=== PATIENT | female | born 1945 | race Caucasian/White ===

== ENCOUNTER 2022-04-15 08:26 | Outpatient (CLI) | payer MEDICARE, SELFPAY ==
[2022-04-15 11:38] LABS: Cholesterol* 160 mg/dL (90-199); HDL Cholesterol* 80 mg/dL (>=50); LDL Cholesterol Calculated 58 mg/dL (<100); Triglycerides* 109 mg/dL (40-149)
== END 2022-04-15 08:27 | disposition home or self-care (01) ==
LOC: NFLDREF 08:27
PROVIDERS: PCP Internal Medicine; Visit Provider Internal Medicine
DX: I67.9 Cerebrovascular disease, unspecified (principal)
CPT/HCPCS: 80061

== ENCOUNTER 2023-01-01 09:46 | Outpatient (CLI) | payer MEDICARE, SELFPAY | END 2023-01-01 09:47 | disposition home or self-care (01) | LOC: AMB 01-03 10:03 | PROVIDERS: PCP Internal Medicine; Visit Provider Family Medicine | DX: S09.93XA Unspecified injury of face, initial encounter (principal); W01.0XXA Fall on same level from slipping, tripping and stumbling without subsequent striking against object, initial encounter; Y93.01 Activity, walking, marching and hiking; Y92.480 Sidewalk as the place of occurrence of the external cause | CPT/HCPCS: A0425; A0429 ==

== ENCOUNTER 2023-01-01 10:06 | Emergency (ER) | payer MEDICARE, SELFPAY ==
[2023-01-01 10:08] VITALS: BP 146/98; PULSE 76; RESP 16; TEMP 36.1; O2SAT 96; BMI 28.9
--- NOTE | 2023-01-01 10:34 | CRLHL7_ITS ---
For Patients: As a result of the Century Cures Act, medical imaging exams and procedure reports are released immediately into your electronic medical record. You may view this report before your referring provider. If you have questions, please contact your health care provider. INDICATION: Fall TECHNIQUE: CT cervical spine without contrast. COMPARISON: None FINDINGS: Vertebrae: Alignment is normal. There are no fractures or suspicious bony lesions. Discs and facet joints: Mild facet hypertrophy C2-3 without significant stenosis. Facet hypertrophy and posterior osteophytes at C3-4 causing moderate right foraminal stenosis. Facet hypertrophy with posterior osteophytes at C4-5 causing moderate right foraminal stenosis. Facet hypertrophy and posterior osteophytes at C5-6 causing moderate right and mild left foraminal stenosis. Disc space narrowing with facet hypertrophy and posterior osteophytes at C6-7 causing moderate left foraminal stenosis. Facet hypertrophy at C7-T1 without significant stenosis. Extraspinal findings: Biapical pleural parenchymal scarring. Atherosclerosis. Mild centrilobular emphysema lung apices. IMPRESSION: Multilevel degenerative changes cervical spine without evidence of cervical spine fracture. Please note that all CT scans at this facility use dose modulation, iterative reconstruction, and/or weight-based dosing when appropriate to reduce radiation dose to as low as reasonably achievable. Dictated by Zachary Huynh MD @ 01/01/2023 11:42:20 AM (Electronically Signed)
--- NOTE | 2023-01-01 10:34 | CRLHL7_ITS ---
For Patients: As a result of the Cures Act, medical imaging exams and procedure reports are released immediately into your electronic medical record. You may view this report before your referring provider. If you have questions, please contact your health care provider. INDICATION: Fall TECHNIQUE: CT maxillofacial without contrast. COMPARISON: None FINDINGS: Facial bones: No fractures or bone lesions. Specifically the nasal bones, temporomandibular joints, maxilla and mandible appear intact. Orbits and globes: Unremarkable. Globes are intact. No sign of intraorbital hemorrhage or emphysema. Sinuses: Trace sphenoid fluid. Soft tissues: Left periorbital scalp hematoma with some subcutaneous air consistent with soft tissue laceration. IMPRESSION: Left periorbital scalp hematoma without evidence of facial fracture. Please note that all CT scans at this facility use dose modulation, iterative reconstruction, and/or weight-based dosing when appropriate to reduce radiation dose to as low as reasonably achievable. Dictated by Zachary Huynh MD @ 01/01/2023 11:52:20 AM (Electronically Signed)
--- NOTE | 2023-01-01 10:34 | CRLHL7_ITS ---
For Patients: As a result of the Century Cures Act, medical imaging exams and procedure reports are released immediately into your electronic medical record. You may view this report before your referring provider. If you have questions, please contact your health care provider. INDICATION: Fall TECHNIQUE: CT head without contrast. COMPARISON: None. FINDINGS: CSF spaces: Within normal limits for age. Brain parenchyma: The rojas-white differentiation is normal. No sign of mass, hemorrhage, or midline shift. Skull base and calvarium: Trace fluid within the sphenoid sinus. The visualized orbits are grossly unremarkable. No skull fractures. Left frontal scalp hematoma. Small subcutaneous air consistent with skin laceration. IMPRESSION: Left frontal scalp hematoma without calvarial fracture or intracranial bleed. Please note that all CT scans at this facility use dose modulation, iterative reconstruction, and/or weight-based dosing when appropriate to reduce radiation dose to as low as reasonably achievable. Dictated by Zachary Huynh MD @ 01/01/2023 11:38:51 AM (Electronically Signed)
--- NOTE | 2023-01-01 10:36 | ED_ITS ---
HPI - General Adult General Chief complaint: Head Injury/Pain Stated complaint: fall Time Seen by Provider: 01/01/23 10:17 History of Present Illness HPI narrative: Patient is a pleasant 77-year-old female who takes an aspirin for history of lacunar infarct in the past, who tripped on some elevated tar and grass junction and fell forward on her left side of her face, she denied loss of consciousness, denies significant neck pain or headache. She does have pain and numbness over her left lateral forehead with significant bruising and a small laceration. She was brought in by EMS. She was apparently ambulatory at the scene. No other complaints of back pain, abdominal pain, fever chills, she simply tripped, had no chest pain or loss consciousness as mention. She has been a good state of health recently. Related Data Home Medications Medication Instructions Recorded Confirmed aspirin 81 mg capsule 81 mg PO QDAY 05/02/22 01/01/23 Previous Rx's Medication Instructions Recorded alendronate 35 mg tablet 35 mg PO QWEEK #12 tabs 05/02/22 metoprolol tartrate 25 mg tablet 25 mg PO BID #180 tabs 05/02/22 simvastatin 20 mg tablet 20 mg PO QHS #180 tabs 05/02/22 venlafaxine 37.5 mg 37.5 mg PO QDAY #90 caps 05/02/22 capsule,extended release 24 hr Allergies Allergy/AdvReac Type Severity Reaction Status Date / Time No Known Drug Allergies Allergy Verified 01/01/23 10:12 Review of Systems Status of ROS: Reports: 6 or more systems reviewed and unremarkable except as noted in History and below [facility] Medical History Amaurosis fugax, right eye ?G45.3 - Amaurosis fugax (ICD-10) Surgical History History of bilateral cataract extraction (2020) ?Z98.41 - Cataract extraction status, right eye (ICD-10) ?Z98.42 - Cataract extraction status, left eye (ICD-10) History of ankle fracture ?Z87.81 - Personal history of (healed) traumatic fracture (ICD-10) History of cholecystectomy ?Z90.49 - Acquired absence of other specified parts of digestive tract (ICD- 10) History of cataract surgery ?Z98.49 - Cataract extraction status, unspecified eye (ICD-10) Family History Aunt Colon cancer Social History Smoking Status: Former smoker How often do you have a drink containing alcohol: 4 or more times a week AUDIT-C Alcohol total score: 4 Non-prescribed substance use: denies use Little interest or pleasure in doing things: not at all Feeling down, depressed, or hopeless: not at all Exam Narrative: Exam Narrative: Objective: Vital signs show elevated blood pressure 146/98, afebrile, O2 sat 96% on room air, other vital signs within normal Alert orient x3, no facial asymmetry, there is soft tissue swelling over her left brow and a 1 cm laceration on the lateral brow that gape slightly good hemostasis Eyes clear and reactive no bleeding or eye injury no other facial injuries noted neck is supple nontender she has got no chest back or abdominal tenderness no lower extremity symptoms Const: Vital Signs, click to edit/add: Vital Signs - 24 hr 01/01/23 10:08 Temperature 96.9 F L Pulse Rate [Pulse Oximeter] 76 Respiratory Rate 16 Blood Pressure [Ri ght Upper Arm] 146/98 H Pulse Oximetry 96 Oxygen Delivery Me thod Room Air Course Vital Signs Vital signs: Initial Vital Signs Temperature 96.9 F L 01/01/23 10:08 Temperature Source Temporal Artery Scan 01/01/23 10:08 Pulse Rate 76 01/01/23 10:08 Respiratory Rate 16 01/01/23 10:08 Blood Pressure 146/98 H 01/01/23 10:08 Blood Pressure Mean 114 H 01/01/23 10:08 Blood Pressure Position Sitting 01/01/23 10:08 Pulse Oximetry 96 01/01/23 10:08 Oxygen Delivery Method Room Air 01/01/23 10:08 Vital Signs Temperature 96.9 F L 01/01/23 10:08 Pulse Rate 76 01/01/23 10:08 Respiratory Rate 16 01/01/23 10:08 Blood Pressure 146/98 H 01/01/23 10:08 Pulse Oximetry 96 01/01/23 10:08 Oxygen Delivery Method Room Air 01/01/23 10:08 Temperature 96.9 F L 01/01/23 10:08 Pulse Rate 76 01/01/23 10:08 Respiratory Rate 16 01/01/23 10:08 Blood Pressure 146/98 H 01/01/23 10:08 Pulse Oximetry 96 01/01/23 10:08 Oxygen Delivery Method Room Air 01/01/23 10:08 Medical Decision Making MDM Narrative Medical decision making narrative: 77-year-old white female with a fall on her forehead on the left with a small laceration. She is on small dose aspirin for prevention from lacunar stroke in the past. I think at this point a CT of her head facial bones and neck would be appropriate because of her age and fall an aspirin use. Will also repair the laceration, check on her tetanus status. Procedure: After sterile scrub with Betadine and Shur-Clens the wound was injected 1% xylocaine with with epinephrine, the patient tolerated this well Three 4-0 simple or interrupted Ethilon sutures were placed, good hemostasis, good wound edge closure. Patient will get the CT of her head facial bones and neck as mention. Addendum 11:55 a.m.: Patient's facial CT shows left periorbital scalp hematoma without evidence of facial fracture. Neck CT shows degenerative change, no acute fracture. Head CT is negative except for left scalp hematoma no calvarial fracture or intracranial bleed. Patient will get sutures out in 6 days, watch for redness or infection, she is up-to-date on tetanus. Light activity and no exertional activity for the next week until recheck with primary care and get her stitches out. Return to ED sooner problems or concerns. Would hold her aspirin for today and tomorrow and then restart Discharge Plan Discharge Clinical Impression: Facial laceration, Contusion of face, Fall Patient Disposition: Home w/ Parent or Adult Condition: Improved Additional Instructions: Light activity, would hold her aspirin for 2 days, then restart, suture removal in 5-6 days at clinic, watch for redness or infection, we will check on her tetanus status. May keep covered until tomorrow and then may simply cover with a bandage or leave open to air, may use bacitracin or Neosporin on the sutures. Return to ED as needed or problems or concerns. Would avoid aggressive exercise or activity for the next week. And would recheck with your primary care doctor when here sutures out Activity Level: Light activity Discharge Diet: Regular Prescriptions: No Action aspirin 81 mg capsule 81 mg PO QDAY simvastatin 20 mg tablet 20 mg PO QHS Qty: 180 3RF venlafaxine 37.5 mg capsule,extended release 24hr 37.5 mg PO QDAY Qty: 90 3RF metoprolol tartrate 25 mg tablet 25 mg PO BID Qty: 180 3RF alendronate 35 mg tablet 35 mg PO QWEEK Qty: 12 3RF Follow Up/Referrals: Juliette Reed MD [Primary Care Provider] - Stand Alone Forms: [employer] Info Instructions
[2023-01-01] MEDS: ACETAMINOPHEN 500 MG TABLET 1000 MG PO (10:59)
== END 2023-01-01 12:02 | disposition home or self-care (01) ==
PROVIDERS: Emergency Provider Family Medicine; PCP Internal Medicine
DX: S01.112A Laceration without foreign body of left eyelid and periocular area, initial encounter (principal); S00.03XA Contusion of scalp, initial encounter; W01.0XXA Fall on same level from slipping, tripping and stumbling without subsequent striking against object, initial encounter
CPT/HCPCS: 12011; 70450; 70486; 72125; 99283; 99284; A9270

== ENCOUNTER 2023-05-19 07:30 | Outpatient (CLI) | payer MEDICARE, SELFPAY | END 2023-05-19 07:31 | disposition home or self-care (01) | LOC: NFLDREF 05-29 07:30 | PROVIDERS: PCP Internal Medicine; Referring Provider Internal Medicine; Visit Provider Internal Medicine | DX: M85.80 Other specified disorders of bone density and structure, unspecified site (principal); I67.9 Cerebrovascular disease, unspecified; E66.9 Obesity, unspecified; I49.3 Ventricular premature depolarization; F41.9 Anxiety disorder, unspecified | CPT/HCPCS: 80061; 82306 ==

== ENCOUNTER 2023-07-29 14:53 | Outpatient (CLI) | payer MEDICARE, SELFPAY ==
--- NOTE | 2023-07-29 15:20 | MM_ITS ---
Patient: YU HATCH Facility:?[facility] Patient ID:?[id number] Site Patient ID:?[id number]. Site :?[id number] Study:?XRay-Breast Right 3D screening mammogram w/cad-07/29/2023 3:35:04 PM Ordering Physician:BOBBY Final Report: RIGHT SCREENING MAMMOGRAM WITH COMPUTER-AIDED DETECTION AND TOMOSYNTHESIS TECHNIQUE: CC and MLO views were obtained. These mammographic images have been obtained using full-field digital technique. These mammographic images were interpreted with the benefit of computer-aided detection. Breast Tomosynthesis was used in this interpretation. COMPARISON FILM: 07/17/21, 07/10/20, 05/17/19. FINDINGS: There are scattered areas of fibroglandular density IMPRESSION: There is no radiographic evidence for malignancy. ASSESSMENT: BI-RADS Category 1: Negative RECOMMENDATION: Routine screening mammogram in 1 year. A lay language report of this examination will be provided to the patient. Parth Tan M.D. Diagnostic Radiologist [email or web address] BRIAN/bryson R& Transcribed: 8:03 p.m. HAYLEE/Dictated by: Parth Tan MD @ 07/31/2023 12:54:00 PM Signed by:?Parth Tan MD @07/31/2023 8:29:56 PM (Electronic Signature)
== END 2023-07-29 14:54 | disposition home or self-care (01) ==
LOC: MAMMO 14:53
PROVIDERS: PCP Internal Medicine; Visit Provider Internal Medicine
DX: Z12.31 Encounter for screening mammogram for malignant neoplasm of breast (principal)
CPT/HCPCS: 77063; 77067

== ENCOUNTER 2023-09-16 13:00 | Outpatient (RCR) | payer MEDICARE, SELFPAY ==
--- NOTE | 2023-09-08 14:28 | PT.OPEX ---
PT [place] Outpatient Eval PT [facility] Outpatient Eval Start: 09/08/23 08:35 Freq: Status: Active Protocol: Document 09/08/23 08:35 MIKE (Rec: 09/08/23 14:21 MIKE [id number]) E-signed By Shweta Asencio, PT Physical Therapy Outpatient Evaluation Insurance Information Recert Due Date 12/07/23 Insurance Name Medicare B Medical Diagnosis Cervicalgia, lumbar pain Treating Diagnosis R sided neck pain, lumbar pain , abnormal posture, core weakness. Referring MD Juliette Reed MD Subjective Subjective She takes 2 Tylenol every few hours. Does motrin PRN for pain. Leaving for [place] for a few weeks. She got prednisone and it has helped with the severity of the pain. She had R neck pain and now bilat lower back pain. Feels like her body is too heavy for her back. She does ice and heat depending on what feels good. Initially was having trouble getting out of bed, still painful c rolling and sit/ stand transitions. Denies radicular sx into limbs. Initially had DELGADO's c neck pain . Pain Comments R neck pain is mostly resolved after prednisone, focus on thoracolumbar region at this time as it is limiting transfers and functional lifting. Current Work Status Retired Precautions Treatment Precautions/Contraindications h/o breast cancer, H/o cerbrovasular disease, anxiety , osteopenia, sleep apnea Therapy Limitations/Systems Review Not Limited Objective Other/Pertinent Objective Pain: rolling in bed, sit/ stand transition, lifting 20#, flexion of spine Ext lumbar: relieve pain. Supine- tender on initial laying at L3/4 TTP: Bilat glute med, TFL, lumbar paraspinals (L2-4 most tender) LE strength 4+/5 except hip ext 4- bilat and painful TA strength fair UE strength- no limitations or pain Rotation noted at L2-3 hypomobility on L superior sacral border, reduced R>L pelvic side glide Normal sensation of limbs. Assessment Assessment/Impression Pt is a 77 yr old female with a recent onset of muscular pain around her spine. Initial sx of cervical pain have settled down, remaining sx are into thoracic and lumbar spine but related to same onset of sx. She was very tender along paraspinals of upper lumbar and L>R today. She was able to improve transfers port-session, but still painful. She does have tenderness to upper hip muscles as well. 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 She demonstrates weakness of core posture and reduced neutral spine for functional lifting tasks. Plan of Care Rehabilitation Potential Good Physical Therapy Goals Pt will demonstrate ability to complete floor transfer s pain in 12 weeks to enhance indep in home. Pt will be indep c HEP to maintain and progress gains made in therapy in 8 weeks. Pt will demonstrate supine to sit to stand s pain in 4 weeks in order to improve functional mobility. Coordination/Communication With Referral Source Treatment Plan/Direct Interventions Electrical Stimulation,Gait Training,Ice/Cold/ Vasopneumatic,Manual Therapy, Neuromuscular Re-ed, Therapeutic Activities, Therapeutic Exercises,Traction (Mechanical),Ultrasound Frequency/Duration 1-2x/week for 12 weeks. Patient Will Be Discharged From Therapy Completion of LTG(s),Skills Plateau,Independent w/HEP, Independently Progressing Evaluation Billing Untimed Code Treatment Minutes 30 PT Eval No Charge No Complexity Moderate Certification Information Initial Certification Date 09/08/23 Ending Certification Date 12/07/23 Provider Signature Required Yes Provider Signature Shows Agreement With POC & Medical Necessity Physician NPI Number Write NPI# Here Physician Comment/Change : Physician Signature & Date Requested Please Sign/Date Here
== END 2023-10-20 13:22 | disposition home or self-care (01) ==
PROVIDERS: PCP Internal Medicine; Visit Provider Internal Medicine
DX: M54.2 Cervicalgia (principal); M54.50 Low back pain, unspecified; R29.3 Abnormal posture; M62.81 Muscle weakness (generalized); Z51.89 Encounter for other specified aftercare
CPT/HCPCS: 97110; 97140; 97162

== ENCOUNTER 2023-11-25 11:59 | Outpatient (CLI) | payer MEDICARE, SELFPAY ==
--- OUTSIDE RECORDS SUMMARY | 2023-11-25 12:01 | XMS_ITS | Clinical Summary ---
Author Organization [facility] Address [place], [place] [address] Care Team Providers Care Med Dir Name Role Phone Kosta Mercado May Unavailable [phone] Clinic, [facility] Primary Care Pr ovider Allergies No known active allergies Medications Medication Sig Dispensed Refills Start Date End Date Status venlafaxine (EFFEXOR XR) 37.5 mg Extended-Release capsule Take by mouth once daily with a meal. 0 06/23/2014 Active metoprolol tartrate (LOPRESSOR) 25 mg tablet Twice A Day 03/29/2019 Active CPAPIndications:Obstr uctive sleep apnea CPAP machine for home use at pressure 11 cmw, full face mask x1/3month with a full face cushion x1/mo 1 Each 11 04/25/2021 Active Active Problems Problem Noted Date Diagnosed Date Colon polyp 03/01/2015 Overview: Colonoscopy 02/2015 polyps repeat in 5 years Vitamin D deficiency 01/13/2013 LISA 01/06/2006 AHI- 111 02/25/2011 Osteoporosis, unspecified 03/29/2010 Family history of malignant neoplasm of gastrointestinal tract 12/14/2009 Overview: Colonoscopy 11/2009 diverticulosis repeat in 5 years Colonoscopy 02/2015 polyps repeat in 5 years Personal history of cardiac arrhythmia 9 Mixed hyperlipidemia 12/26/2008 Esophageal reflux 08/25/2006 Personal history of malignant neoplasm of breast 08/25/2006 Overview: Left breast, mastectomy and reconstruction. 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 08/25/2006 Overview: L4 and L5 Resolved Problems Problem Noted Date Diagnosed Date Resolved Date Osteopenia 01/09/2010 03/29/2010 Unspecified sleep apnea 08/25/2006 12/0 07/2010 Immunizations Name Administration Dates Next Due Influenza A (H1N1), Inactivated 03/06/2009 Influenza A (H1N1), Inactiva troy (Age >=3 Years) 03/06/2009 Influenza, High-dose Inactivated 11/28/2017,12/22 Influenza, IIV3 (Age 6-35 mos) 12/19/2008 Influenza, IIV3 (Age >=3 years) 12/23/19 13,12/18/2011,01/09/2010,2008,02/24/2008,03/07/2007,02/21/2005,1 ,01/24/2003 Pneumococcal Poly,23-Valent (Pneumovax) 11/28/2017,12/19/2008 Pneumococcal conj 13-Valent (Prevnar 13) 03/10/2015 Tdap 08/14/2018,12/26/2008 Zoster (Zostavax-ZVL, live) 12/26/2008 Family History Medical History Relation Name Comments Hyperlipidemia Brother 3 Diabetes Brother 4 elevated fastin g Cancer Father Tumor in cheek, scarcoidosis, bladder tumor Cancer-colon Maternal Aunt 1 Dx in 60's Cancer-colon Maternal Aunt 2 Dx in 60's GI Disease Mother Gallbladder dis ease Hyperlipidemia Sister 3 Cancer-breast No Family History Cancer-prostate No Family History Relation Name Status Comments Brother 1 Alive Brother 2 Brother 3 Brother 4 Daughter 1 Alive Daughter 2 Alive Father Maternal Aunt 1 Maternal Aunt 2 Maternal Grandfather Maternal Grandmother Mother Alive Paternal Grandfather Paternal Grandmother Sister 1 Alive Sister 2 Alive Sister 3 Son Alive Social History Tobacco Use Types Packs/Day Years Used Date Smoking Tobacco: Former Cigarettes Q uit: 03/24/1977 Smokeless Tobacco: Never Tobacco Cessation:Counseling Given: Yes Alcohol Use Standard Drinks/Week Comments Yes 0 (1 standard drink = 0.6 oz pur e alcohol) occasionally Social Connections Answer Date Recorded Frequency of Communication with Friends and Fami ly Not on file 04/17/2021 Financial Resource Strain Answer Date R ecorded Difficulty of Paying Living Expenses Not on file 04/17/2021 Difficulty of Paying Living Expenses Not on file 04/17/2021 Sex and Gender Information Value Date Recorded Sex Assigned at Not on file Gender Identity Not on file Sexual Orientation Not on file Obstetrics History Last Filed Vital Signs Vital Sign Reading Time Taken Comments Blood Pressure 136/77 04/17/2021 11:32 AM DIRECTOR PART Pulse 85 04/17/2021 11:32 AM DIRECTOR PART Temperature 36.7 ??C (98.1 ??F) 09/03/2018 11:34 AM C DT Respiratory Rate 16 01/13/2013 1:58 PM CDT Oxygen Saturation 96% 04/17/2021 11:32 AM DIRECTOR PART Inhaled Oxygen Concentration - - Weight 85 kg (187 lb 4.8 oz) 04/17/2021 11:32 AM DIRECTOR PART Height 172.7 cm (5' 8) 08/14/2018 3:49 PM CDT Body Mass Index 28.48 08/14/2018 3:49 PM CDT Plan of Treatment Health Maintenance Due Date Last Done Comments Depression screening for age 12+ 1959 Hepatitis C screening for ag e 18-79 11/30/1965 RSV vaccine for adults or (1 - 1-dose 60+ series) 2007 Zoster (shingles) series for age 50+ (2 of 3) 02/20/2009 12/26/2008 Medicare Wellness for age 65+ 01/14/2014 01/13/2013 Lipids for age 45-75 01/13/2018 01/13/2013, 01/02/2012, 12/30/2008, Additional history exists BMI (ht and wt on same day) for age 18+ 08/15/2019 08/14/2018 Colonoscopy through age 75 02/29/202002/28, 12/14/2009, 12/14/2009, Additional history exists COVID-19 vaccine series ( season) 2023 01/04/2021, 06/30/2020, 06/08/2020 Influenza for age 65+ 11/23/2023 11/28/2017 , 01/05/2017, 12/22/2012, Additional history exists Tetanus booster 08/14/2028 08/14/2018, 07/2008, 12/26/2008 DEXA/DXA scan for age 65+ Completed 2013, 01/02/2012, 02/20/2010, Additional history exists Pneumococcal series for age 65+ Completed 11/28/2017, 03/10/2015, 12/19/2008 Tdap Completed 08/14/2018, 12/26/2008 Medical Devices Implanted Type Area Brisket Puller Device Identifier Shelf Expiration Date Model / Serial / Lot Implnt Mammary [id number] - [id number] Implanted:Qty: 1 on 08/27/2005 at [facility] Explanted:at [facility] (Quantity not on file) Left: Breast [employer] [id number]# / [id number] Implnt Mammary 600cc - [id number] Implanted:Qty: 1 on 03/27/2006 at [facility] Explanted:at [facility] (Quantity not on file) Left: Breast [employer] [id number] # / [id number] Procedures Procedure Name Priority Date/Time Associated Diagnosis Comments XR DXA BONE DENSITY 2 SITES AXIAL Routine 04/08/2013 9:46 AM DIRECTOR PART Unspecified osteoporosis LIPID PANEL W REFLEX MEASURED LDL Routine 01/13/2013 12:44 PM CDT Screening for cardiovascular condition from Last 3 Months or Most Recently Relevant to Health Maintenance Results * (ABNORMAL) XR DXA BONE DENSITY 2 SITES (04/08/2013 9:46 AM DIRECTOR PART) Anatomical Region Laterality Modality Spine, HIPS, HIPL, HIPR Other Narrative 04/23/2013 10:50 AM DIRECTOR PART Please see scanned document for results of this study. Procedure Note Jannette Cardona PA - 04/23/2013 Please see scanned document for results of this study. Destini Judge NP DEXA * (ABNORMAL) Lipid panel w/ reflex measured LDL ([id number]) (01/13/2013 12:44 PM CDT) CHOLESTEROL,TOTA L 217(H) 100 - 199 mg/dL [facility] TRIGLYCERIDES 117 <150 mg/dL [facility] HDL CHOLESTEROL 51 >40 mg/dL [facility] CHOL/HDL RATIO 4.26 <4.50 [facility] NON-HDL CHOLESTEROL 166 Undefined mg/dL [facility] LDL CHOLESTEROL 143(H) <131 mg/dL [facility] PATIENT STATUS Fasting [facility] Blood specimen (specimen) BLOOD SPECIMEN / Unknown 01/13/2013 12:44 PM CDT 01/13/2013 12:24 PM CDT Destini Judge NP CHEMISTRY [facility] [place]NAL ZIP [id number] [place] [id number] from Last 3 Months or Most Recently Relevant to Health Maintenance Advance Directives Documents on File Type Date Recorded Patient Technical Aide Expl anation Healthcare Directive 09/01/2005 * Full Code (Latest Code Status on File) Date Activated Date Inactivated Comments 07/10/2006 2:14 PM 07/10/2006 10:42 PM * Full Code Date Activated Date Inactivated Comments 03/27/2006 7:15 AM 03/27/2006 12:56 PM * Full Code Date Activated Date Inactivated Comments 08/27/2005 6:28 AM 08/30/2005 4:46 PM Care Teams Med Dir Relationship Specialty Start Date End Date Clinic, [facility] [address] [place] [address] PCP - General 10/14/13 Kosta Mercado [address] [place] [id number] Ophthalmology Stock Worker And Deliverer 01/13/13
--- OUTSIDE RECORDS SUMMARY | 2023-11-25 12:01 | XMS_ITS | Clinical Summary ---
Author Organization [facility] Address [address] [place] [id number] Care Team Providers Care Camp Director Name Role Phone Elsewhere, Pcp Primary Care Provider Unavailabl e Source Comments Patient records contain information from all sites at [facility]. For routine questions regarding patient records, call [phone] during business hours, M-F 8:00 AM - 5:00 PM Central Time. Record requests for emergency care only can be directed to [phone] at any time.[facility] Allergies No known active allergies Medications Medication Sig Dispensed Refills Start Date End Date Status alendronate (FOSAMAX) 35 mg tablet Take 35 mg by mouth once a week. 05/02/2022 Active fluticasone propionate (FLONASE) 50 mcg/actuation nasal spray Administer 1 spray into each nostril daily. 05/10/2022 Active metoprolol tartrate (LOPRESSOR) 25 mg tablet Take 25 mg by mouth 2 (two) times a day. 07/03/2022 Active simvastatin (ZOCOR) 20 mg tablet Take 20 mg by mouth at bedtime. 07/03/2022 Active venlafaxine XR (EFFEXOR-XR) 37.5 mg 24 hr capsule Take by mouth daily. 07/03/2022 A ctive aspirin [address] tablet Take 81 mg by mouth daily. Active azelastine (ASTEPRO) 205.5 mcg/spray (0.15 %) nasal spray Administer 2 sprays into each nostril 2 (two) times a day. 30 mL 11 07/25/2022 Active fluticasone propionate (FLONASE) 50 mcg/actuation nasal spray SHAKE LIQUID AND USE 2 SPRAYS IN EACH NOSTRIL DAILY 48 g 3 07/26/2022 Active Encounters Date Type Department Care Team Description 11/02/2023 Refill Division of Allergic Diseases in [place], [place] [address] [place] [address] Marty Moreno M.D. Med Refill from Last 3 Months Social History Tobacco Use Types Packs/Day Years Used Date Smoking Tobacco: Never Smokeless Tobacco: Never Tobacco Cessation:Counseling Given: Not Answered Humiliation, Afraid, Rape, and Kick questionnair e Answer Date Recorded Within the last year, have y ou been afraid of your partner or ex-partner? No 07/18/2022 Within the last year, have y ou been humiliated or emotionally abused in other ways by your partner or ex-partner? No Within the last year, have y ou been kicked, hit, slapped, or otherwise physically hurt by your partner or ex-partner? No 07/18/2022 Within the last year, have y ou been raped or forced to have any kind of sexual activity by your partner or ex-partner? No 07/18/2022 Social Connection and Isolat ion Panel [NHANES] Answer Date Recorded In a typical week, how many times do you talk on the phone with family, friends, or neighbors? More than three times a week 07/18/2022 How often do you get togethe r with friends or relatives? More than three times a week 07/18/2022 How often do you attend chur or buddhist services? More than 4 times per year 07/18/2022 Do you belong to any clubs o r organizations such as druze groups, unions, fraternal or athletic groups, or school groups? Yes 07/18/2022 How often do you attend meet ings of the clubs or organizations you belong to? More than 4 times per year 07/18/2022 Are you , , di vorced, , never , or living with a partner? 07/18/2022 AUDIT-C Answer Date Recorded Q1: How often do you have a drink containing alc ohol? 2-3 times a week 07/18/2022 Q2: How many drinks containi ng alcohol do you have on a typical day when you are drinking? 1 or 2 07/18/2022 Q3: How often do you have si x or more drinks on one occasion? Never 07/18/2022 Overall Financial Resource Strain (CARDIA) Answe r Date Recorded How hard is it for you to pa y for the very basics like food, housing, medical care, and heating? Not hard at all 07/18/2022 [facility] of Occupat ional [facility] - Occupational Stress Questionnaire Answer Date Recorded Do you feel stress - tense, restless, nervous, or anxious, or unable to sleep at night because your mind is troubled all the time - these days? Not at all 07/18/2022 Exercise Vital Sign Answer Date Recorde d On average, how many days pe r week do you engage in moderate to strenuous exercise (like a brisk walk)? 3 days 07/18/2022 On average, how many minutes do you engage in exercise at this level? 40 min 07/18/2022 Hunger Vital Sign Answer Date Recorded Within the past 12 months, y ou worried that your food would run out before you got the money to buy more. Never true 07/19/19 23 Within the past 12 months, t he food you bought just didn't last and you didn't have money to get more. Never true 07/18/2022 PRAPARE - Transportation Answer Date Re corded In the past 12 months, has l ack of transportation kept you from medical appointments or from getting medications? No 06/23 In the past 12 months, has l ack of transportation kept you from meetings, work, or from getting things needed for daily living? No 07/18/2022 Housing Stability Vital Sign Answer Enrico e Recorded In the last 12 months, was t here a time when you were not able to pay the mortgage or rent on time? No 07/18/2022 In the last 12 months, how many places have you lived? 1 07/18/2022 In the last 12 months, was t here a time when you did not have a steady place to sleep or slept in a group home (including now)? No 07/18/2022 Nutrition Answer Date Recorded Nutrition: EVOO Fat Source No 07/18 On average, how many serving s of fruits and vegetables do you eat per day (serving size is equal to 1 cup or approximately the size of a tennis ball)? 2-3 07/18/2022 Dental Answer Date Recorded Dental: Regular Dentist Yes 07/19/19 Employment Answer Date Recorded Employment status Retired 07/18/2022 Education Answer Date Recorded What is the highest level of school you have completed or the highest degree you have received? Bachelor's degree (e.g., BA, AB, BS) 07/18/2022 Sex and Gender Information Value Date Recorded Sex Assigned at Female 07/18/2022 8:01 PM CDT Gender Identity Female 07/18/2022 8:01 PM CDT Sexual Orientation Straight 07/18/2022 8: 01 PM CDT Last Filed Vital Signs Vital Sign Reading Time Taken Comments Blood Pressure - - Pulse - - Temperature 36.9 ??C (98.4 ??F) 07/23/2022 2:24 PM CD T Respiratory Rate - - Oxygen Saturation - - Inhaled Oxygen Concentration - - Weight 88.7 kg (195 lb 8.8 oz) 07/23/2022 2:24 P M CDT Height 172.9 cm (5' 8.07) 07/23/2022 2:24 PM CD T Body Mass Index 29.67 07/23/2022 2:24 PM CDT Plan of Treatment Health Maintenance Due Date Last Done Comments Bone Density Scan (Osteoporo sis Screen) 1947 CT Colonography 1945 Cologuard 1945 Colonoscopy 1947 Colorectal Cancer Screening 1947 FIT 1947 Fasting Glucose for Diabetes Screening 1945 Hepatitis C Screening 1945 Mammogram 1945 Depression Screening (Annual PHQ-2) 03/24/2023 Fall Risk Screen (Annual) 03/24/2023 COVID-19 Vaccine (2022-2 4 season) 2023 12/26/2022, 12/28/2021, 07/02/2021, Additional history exists Influenza Vaccine (#1) 2023 , 12/28/2021, 12/29/2020, Additional history exists DTaP,Tdap,and Td Vaccines (3 - Td or Tdap) 08/14/2028 08/14/2018, 12/26/2008 Pneumococcal vaccine (65+ years) Completed 11/28/2017, 03/10/2015, 12/19/2008 Zoster Vaccines Completed 03/01/2019, 11/23, 12/26/2008 Medical Devices Implanted Type Area Drop Board Man Device Identifier Shelf Expiration Date Model / Serial / Lot Ankle Implant Ankle Implant Right: Ankle Description:Broke lower leg/ ankle and may or may not have hardware. Care Teams Camp Director Relationship Specialty Start Date End Date Elsewhere, Pcp PCP - General Internal Medicine 07/18/22
--- OUTSIDE RECORDS SUMMARY | 2023-11-25 12:01 | XMS_ITS | Encounter Summary ---
Author Organization [facility] Address [address] [place] [address] Care Team Providers Care Ux Consultant Name Role Phone Elsewhere, Pcp Primary Care Provider Unavailabl e Reason for Visit * Reason Comments Med Refill Encounter Details Date Type Department Care Team (Late st Contact Info) Description 11/02/2023 Refill Division of Allergic Diseases in [place], [place] [address] [place] [address] Marty Moreno M.D. [address] [place] [address] Med Refill Social History Tobacco Use Types Packs/Day Years Used Date Smoking Tobacco: Never Smokeless Tobacco: Never Humiliation, Afraid, Rape, and Kick questionnair e [...] 07/18/2022 How often do you attend chur ch or mormonism services? More than 4 times per year 07/18/2022 Do you belong to any clubs o r organizations such as synagogue groups, unions, fraternal or athletic groups, or [...] and heating? Not hard at all 07/18/2022 [facility] [place] of Occupat ional Health - Occupational Stress Questionnaire Answer Date Recorded [...] place to sleep or slept in a longterm (including now)? No 07/18/2022 Nutrition Answer Date [...] Orientation Straight 07/18/2022 8: 01 PM CDT documented as of this encounter Miscellaneous Notes * Telephone Encounter - Cindy Crisostomo RMartinaN. - 11/04/2023 2:20 PM CDT Prescription renewal request for: fluticasone propionate. HISTORY OF PRESENT ILLNESS Last Allergy visit: 07/25/[address] Marty Moreno Future office visit: not ordered Needs provider review due to has not been seen within past 15 months or does not have an upcoming appointment within the next 3 months documented in this encounter Plan of Treatment Not on file documented as of this encounter Visit Diagnoses Not on filedocumented in this encounter Care Teams Ux Consultant Relationship Specialty Start Date End Date Elsewhere, Pcp PCP - General Internal Medicine 07/18/22 documented as of this encounter
--- OUTSIDE RECORDS SUMMARY | 2023-11-25 12:01 | XMS_ITS ---
Author Organization [facility] Address [address] [place] [address] Care Team Providers Care Statistical Methods Professor Name Role Phone Unavailable Unavailable Unavailable Surgery Details Not on file Complications Check Surgery Details section. Procedure Estimated Blood Loss Check Surgery Details section. Procedure Findings Check Surgery Details section. Procedure Specimens Taken Check Surgery Details section.
--- OUTSIDE RECORDS SUMMARY | 2023-11-25 12:01 | XMS_ITS | Referral Summary ---
Author Organization [facility] Address [address] [place] [address] Care Team Providers Care House Moving Supervisor Name Role Phone Elsewhere, Pcp Primary Care Provider Unavailabl e Source Comments Patient records contain information from all sites at [facility]. For routine questions regarding patient records, call [phone] during business hours, M-F 8:00 AM - 5:00 PM Central Time. Record requests for emergency care only can be directed to [phone] at any time.[facility] Encounters Date Type Department Care Team Description 11/02/2023 Refill Division of Allergic Diseases in [place], [place] [address] [place] [address] Marty Moreno M.D. Med Refill from Last 3 Months Allergies No known active allergies Medications Medication [...] NOSTRIL DAILY 48 g 3 07/26/2022 Active Social History Tobacco Use Types Packs/Day Years [...] How often do you attend chur or zoroastrian services? More than 4 times per year [...] and heating? Not hard at all 07/18/2022 [facility] [place] of Occupat ional [facility] - Occupational Stress Questionnaire Answer Date Recorded [...] place to sleep or slept in a alf (including now)? No 07/18/2022 Nutrition Answer Date [...] 07/23/2022 2:24 PM CDT Plan of Treatment Not on file Medical Devices Implanted Type Area Per Assessment Nurse Device Identifier Shelf Expiration Date Model / Serial / Lot Ankle Implant Ankle Implant Right: Ankle Description:Broke lower leg/ ankle and may or may not have hardware. Care Teams House Moving Supervisor Relationship Specialty Start Date End Date Elsewhere, Pcp PCP - General Internal Medicine 07/18/22
== END 2023-11-25 12:00 | disposition home or self-care (01) ==
LOC: LKVREF 11:59
PROVIDERS: PCP Internal Medicine; Visit Provider Family Medicine
DX: M54.6 Pain in thoracic spine (principal)
CPT/HCPCS: 80053

== ENCOUNTER 2024-01-23 08:30 | Outpatient (RCR) | payer MEDICARE, SELFPAY ==
--- NOTE | 2023-12-08 07:47 | PT.OPE ---
PT [facility] Eval PT [facility] Outpatient Eval Start: 12/05/23 12:55 Freq: Status: Active Protocol: Document 12/05/23 12:56 ENM (Rec: 12/05/23 16:16 ENM [id number]) E-signed By Rahel Reaves, DPT Physical Therapy Outpatient Evaluation Insurance Information Recert Due Date 03/04/24 Insurance Name Medicare B Medical Diagnosis back pain pain in thoracic spine Treating Diagnosis low back pain, muscle weakness , impaired standing tolerance, impaired walking tolerance, decreased lumbar ROM Imaging Report Information Per Xray on 11/21/23 age indeterminate mild superior endplate compression fracture of T11 In lumbar spine mild spondylitic changes Referring MD [place] Subjective Subjective Patient presents to PT for complaint of low back pain . She hurt her back early in the spring. Was seen in PT for a few visits which helped specifically the massage. Her back did not feel normal but the pain was better. She then reinjured her back 2 weeks ago and went to urgent care. This injury happened after helping to lift someone in<>out of car. She has been alternating ice and heat as well as sitting to manage her pains. She can't stand more than 3-5 mins before the pain is brought on. Walking is also limited. She is able to sleep alright at night. No improvement with prednisone this time around. When it started: Spring time Describes it as: spasm very acute Timing: wakes up ok and then stands up then pain comes on Location: right lower back lateral to SIJ Irritability: mod Severity: mod PMHx: stroke, breast cancer Pain Comments at its best: none at rest at its worse: 12/31 easing: ice, heat, sitting, aggravating: bending, standing >5 mins, Current Work Status Retired Objective Other/Pertinent Objective Lumbar AROM: FF: mid thigh with pain EXT: 25% limited minimal pain SB: R + for pain ROT: R + for pain + for pain with curve reversal from FF Hip AROM: Flexion: WNL IR: WNL ER: WNL pain free strength: limited assessment due to pain fair core strength with TA activations fair glute strength with bridges Palpation/joint mobility: Thoracic PA mobilization: stiffness throughout Lumbar PA mobilization: stiffness throughout + for pain with RPA L5 + for pain palpating R QL, R glute med, R lower lumbar paraspinals, R SIJ Special tests: SAMANTHA: - SLR: - Directional preference: extension Functional Test Performed & Score AGAPITO: 28/50 56% severe disability Assessment Assessment/Impression Patient is a 78 year old female presenting with an acute case of lower right back pain. They had a similar incident earlier in the spring with lifting that improved before a trip to [place]. Recently she had another lifting injury and has not been able to manage her pains since. Symptoms are limiting her standing, walking and ability to perform household duties. Xray showed an age indeterminate mild superior endplate compression fracture of T11 and lumbar spine mild spondylitic changes. Upon assessment patients concordant pains brought on with lumbar flexion, right sidebending, right rotation and standing within session. She is tender to palpation along right lower quadrant musculature, SIJ and proximal glute. She does well with prone laying and responds better to ext vs flexion. She has slight relief of symptoms within session today that return after a few minutes of standing. Symptoms consistent with mechanical low back pain. Yasmeen would greatly benefit from skilled PT to address impairments stated above in order to perform all functional mobility and household duties without significant discomfort or difficulty. Primary Functional Limitations standing, bending, walking, household duties Plan of Care Rehabilitation Potential Good Physical Therapy Goals In 8-10 visits: 1. Patient will be IND with HEP and self management of symptoms 2. Patient will display pain free lumbar ROM WNL in order to perform household duties 3. Patient will be able to stand > 15 mins with 3/10 or less back pain to camp cook 4. Patient will return to walking for cardiovascular fitness without difficulty or discomfort 4. Patient will demonstrate and implement proper body mechanics with lifting to decrease risk of reinjury 5. Patient will improve AGAPITO from 56% to 46% (MDC 10% ) to demonstrate improvements in QOL Coordination/Communication With Referral Source Treatment Plan/Direct Interventions Dry Needling,Electrical Stimulation,Gait Training,Heat ,Ice/Cold/Vasopneumatic,Joint Mobilization,Manual Therapy, Neuromuscular Re-ed,Self-Care/ Home Management,Therapeutic Activities,Therapeutic Exercises,Traction (Mechanical ) Frequency/Duration 1x a week for 8-10 weeks, as needed for 2-3 additional visits Patient Will Be Discharged From Therapy Completion of LTG(s), Independent w/HEP Evaluation Billing Untimed Code Treatment Minutes 29 Complexity Moderate Certification Information Initial Certification Date 12/05/23 Ending Certification Date 03/04/24 Provider Signature Required Yes Provider Signature Shows Agreement With POC & Medical Necessity Physician NPI Number Write NPI# Here Physician Comment/Change : Physician Signature & Date Requested Please Sign/Date Here
== END 2024-05-22 23:59 | disposition home or self-care (01) ==
PROVIDERS: PCP Internal Medicine; Visit Provider Physician Assistant Medical
DX: M54.50 Low back pain, unspecified (principal); M54.6 Pain in thoracic spine; M62.81 Muscle weakness (generalized); Z74.09 Other reduced mobility; Z51.89 Encounter for other specified aftercare
CPT/HCPCS: 97110; 97140; 97162

== ENCOUNTER 2024-02-02 12:57 | Outpatient (CLI) | payer MEDICARE, SELFPAY ==
--- NOTE | 2024-02-02 13:00 | CRLHL7_ITS ---
For Patients: As a result of the Century Cures Act, medical imaging exams and procedure reports are released immediately into your electronic medical record. You may view this report before your referring provider. If you have questions, please contact your health care provider. Indication: Mid to low back pain, history of breast cancer Technique: Multisequence multiplanar noncontrast MRI through the thoracic spine. Sagittal T1, T2, STIR, and axial T2 sequences obtained. Comparison: Thoracic spine radiographs performed 11/21/2023 Findings: Alignment: Mild S shaped thoracolumbar curvature. Cord: No cord signal abnormality appreciated. Marrow: Diffuse irregular appearance to the marrow. Endplate deformities of T6 and T7 inferiorly and T11 superiorly suspicious for fractures, possibly pathologic, though suspected to be chronic. No definite acute fracture is appreciated. Thoracic levels: Mild multilevel degenerative changes with no high-grade central or foraminal stenosis. There is slight cord flattening at T6-7 and T7-8 with ample dorsal CSF. Soft tissues: Unremarkable. Impression: 1. Diffuse irregular appearance to the marrow. Given history of malignancy, findings are compatible with osseous metastatic disease until proven otherwise with no comparison study available. 2. Irregular endplate deformities at T6, T7, and T11, suspicious for fractures, possibly pathologic, though the overall appearance more suggestive of a chronic process rather than acute fracture. 3. Mild degenerative changes with no high-grade central or foraminal stenosis appreciated. Dictated by Shaka Garcia MD @ 02/03/2024 2:15:45 AM (Electronically Signed)
--- OUTSIDE RECORDS SUMMARY | 2024-02-02 13:02 | XMS_ITS | Clinical Summary ---
Author Organization [facility] Address [place], [place] [address] Care Team Providers Care Social Insurance Analyst Name Role Phone Kosta Mercado May Unavailable [phone] Clinic, [facility] Primary Care Pr ovider Allergies No known [...] Noted Date Diagnosed Date Colon polyp 03/01/2015 Overview (03/01/2015): Colonoscopy 02/2015 polyps repeat in 5 years Vitamin D deficiency 01/13/2013 LISA 01/06/2006 AHI- 111 02/25/2011 Osteoporosis, unspecified 03/29/2010 Family history of malignant neoplasm of gastrointestinal tract 12/14/2009 Overview (03/01/2015): Colonoscopy 11/2009 diverticulosis repeat in 5 years Colonoscopy 02/2015 polyps repeat in 5 years Personal history of cardiac arrhythmia 9 Mixed hyperlipidemia 12/26/2008 Esophageal reflux 08/25/2006 Personal history of malignant neoplasm of breast 08/25/2006 Overview (08/25/2006): Left breast, mastectomy and reconstruction. 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 08/25/2006 Overview (08/25/2006): L4 and L5 Resolved Problems Problem Noted Date Diagnosed Date Resolved Date Osteopenia 01/09/2010 03/29/2010 Unspecified sleep apnea 08/25/200607/2010 Immunizations Name Administration Dates Next Due Influenza [...] Comments Blood Pressure 136/77 04/17/2021 11:32 AM CONTRACTING ANALYST Pulse 85 04/17/2021 11:32 AM CONTRACTING ANALYST Temperature 36.7 ??C (98.1 ??F) 09/03/2018 11:34 AM C DT Respiratory Rate 16 01/13/2013 1:58 PM CDT Oxygen Saturation 96% 04/17/2021 11:32 AM CONTRACTING ANALYST Inhaled Oxygen Concentration - - Weight 85 kg (187 lb 4.8 oz) 04/17/2021 11:32 AM CONTRACTING ANALYST Height 172.7 cm (5' 8) 08/14/2018 3:49 PM CDT Body Mass Index 28.48 08/14/2018 3:49 PM CDT Plan of Treatment Health Maintenance Due Date Last Done Comments Depression screening for age 12+ 1959 Hepatitis C screening for ag e 18-79 11/30/1965 Zoster (shingles) series for age 50+ (2 of 3) 02/20/2009 12/26/2008 Medicare Wellness for age 65+ 01/14/2014 01/13/2013 BMI (ht and wt on same day) for age 18+ 08/15/2019 08/14/2018 RSV vaccine for adults or (1 - 1-dose 75+ series) 11/30/2022 COVID-19 vaccine series ( season) 2023 01/04/2021, 06/30/2020, 06/08/2020 Influenza for age 65+ 11/23/2023 11/28/2017 , 01/05/2017, 12/22/2012, Additional history exists Tetanus booster 08/14/2028 08/14/2018, 07/2008, 12/26/2008 DEXA/DXA scan for age 65+ Completed 2013, 01/02/2012, 02/20/2010, Additional history exists Pneumococcal series for age 65+ Completed 11/28/2017, 03/10/2015, 12/19/2008 Tdap Completed 08/14/2018, 12/26/2008 Medical Devices Implanted Type Area Respiratory Equipment Assistant Device Identifier Shelf Expiration Date Model / Serial / Lot Implnt Mammary [id number] - [id number] Implanted:Qty: 1 on 08/27/2005 at [facility] Explanted:at [facility] (Quantity not on file) Left: Breast [employer] [id number]# / [id number] Implnt Mammary 600cc - [id number] Implanted:Qty: 1 on 03/27/2006 at [facility] Explanted:at [facility] (Quantity not on file) Left: Breast [employer] [id number] # / [id number] Procedures Procedure Name Priority Date/Time Associated Diagnosis Comments XR DXA BONE DENSITY 2 SITES AXIAL Routine 04/08/2013 9:46 AM CONTRACTING ANALYST Unspecified osteoporosis from Last 3 Months or Most Recently Relevant to Health Maintenance Results * (ABNORMAL) XR DXA BONE DENSITY 2 SITES (04/08/2013 9:46 AM CONTRACTING ANALYST) Anatomical Region Laterality Modality Spine, HIPS, HIPL, HIPR Other Narrative 04/23/2013 10:50 AM CONTRACTING ANALYST Please see scanned document for results of this study. Procedure Note Jannette Cardona PA - 04/23/2013 Please see scanned document for results of this study. Destini Judge NP DEXA from Last 3 Months or Most Recently Relevant to Health Maintenance Advance Directives Documents on File Type Date Recorded Patient Junior Financial Analyst Expl anation Healthcare Directive 09/01/2005 * Full Code (Latest Code Status on File) Date Activated Date Inactivated Comments 07/10/2006 2:14 PM 07/10/2006 10:42 PM * Full Code Date Activated Date Inactivated Comments 03/27/2006 7:15 AM 03/27/2006 12:56 PM * Full Code Date Activated Date Inactivated Comments 08/27/2005 6:28 AM 08/30/2005 4:46 PM Care Teams Social Insurance Analyst Relationship Specialty Start Date End Date Clinic, [facility] [address] [place] [address] PCP - General 10/14/13 Kosta Mercado [address] [place] [id number] Ophthalmology Optical Mechanic Apprentice 01/13/13
--- NOTE | 2024-02-02 13:45 | CRLHL7_ITS ---
For Patients: As a result of the Century Cures Act, medical imaging exams and procedure reports are released immediately into your electronic medical record. You may view this report before your referring provider. If you have questions, please contact your health care provider. Indication: Mid to low back pain, right hip pain, history of breast cancer Technique: Multisequence multiplanar noncontrast MRI through the lumbar spine. Sagittal T1, T2, and STIR, and axial T1 and T2 sequences obtained. Comparison: Lumbar spine radiographs performed 11/21/2023 Findings: Alignment: Slight S shaped thoracolumbar curvature. Conus and cauda equina: No cord signal abnormality appreciated. Marrow: Diffuse irregular appearance to the marrow. No fracture. Lumbar levels: Mild degenerative changes are present with no high-grade central stenosis appreciated. Mild foraminal narrowing at L4-5 and L5-S1 no high-grade foraminal stenosis present. Soft tissues: No significant abnormality appreciated. Impression: 1. Diffuse irregular appearance to the marrow. Given history of malignancy, findings are compatible with osseous metastatic disease until proven otherwise with no comparison study available. 2. Mild degenerative changes with no lumbar fracture appreciated. Dictated by Shaka Garcia MD @ 02/03/2024 2:18:25 AM (Electronically Signed)
== END 2024-02-02 12:58 | disposition home or self-care (01) ==
PROVIDERS: PCP Internal Medicine; Visit Provider Family Medicine
DX: M54.50 Low back pain, unspecified (principal); M89.9 Disorder of bone, unspecified; M54.6 Pain in thoracic spine; G89.29 Other chronic pain; Z85.3 Personal history of malignant neoplasm of breast
CPT/HCPCS: 72146; 72148

== ENCOUNTER 2024-02-11 10:53 | Outpatient (CLI) | payer MEDICARE, SELFPAY ==
--- OUTSIDE RECORDS SUMMARY | 2024-02-11 10:57 | XMS_ITS | Clinical Summary ---
Author Organization [facility] Address [place], [place] [address] Care Team Providers Care Electric Meter Repairer Apprentice Name Role Phone Kosta Mercado May Unavailable [phone] Clinic, [facility] Allergies No known [...] Comments Blood Pressure 136/77 04/17/2021 11:32 AM FARROWING WORKER Pulse 85 04/17/2021 11:32 AM FARROWING WORKER Temperature 36.7 C (98.1 F) 09/03/2018 11:34 AM CDT Respiratory Rate 16 01/13/2013 1:58 PM CDT Oxygen Saturation 96% 04/17/2021 11:32 AM FARROWING WORKER Inhaled Oxygen Concentration - - Weight 85 kg (187 lb 4.8 oz) 04/17/2021 11:32 AM FARROWING WORKER Height 172.7 cm (5' 8) 08/14/2018 3:49 [...] Additional history exists Tetanus booster 08/14/2028 08/14/2018, 1007/2008, 12/26/2008 DEXA/DXA scan for age 65+ Completed 2013, 01/02/2012, 02/20/2010, Additional history exists Pneumococcal series for age 65+ Completed 11/28/2017, 03/10/2015, 12/19/2008 Tdap Completed 08/14/2018, 12/26/2008 Medical Devices Implanted Type Area Hvac Engineering Technician Device Identifier Shelf Expiration Date Model / Serial / Lot Implnt Mammary 350-1485 - [id number] Implanted:Qty: 1 on 08/27/2005 at [facility] Explanted:at [facility] (Quantity not on file) Left: Breast MENTOR IMPLANTS 350-1485# / [id number] Implnt Mammary 600cc - [id number] Implanted:Qty: 1 on 03/27/2006 at [facility] Explanted:at [facility] (Quantity not on file) Left: Breast MENTOR IMPLANTS [id number] # / [id number] Procedures Procedure Name Priority Date/Time Associated Diagnosis Comments XR DXA BONE DENSITY 2 SITES AXIAL Routine 04/08/2013 9:46 AM FARROWING WORKER Unspecified osteoporosis from Last 3 Months or Most Recently Relevant to Health Maintenance Results * (ABNORMAL) XR DXA BONE DENSITY 2 SITES (04/08/2013 9:46 AM FARROWING WORKER) Anatomical Region Laterality Modality Spine, HIPS, HIPL, HIPR Other Narrative 04/23/2013 10:50 AM FARROWING WORKER Please see scanned document for results of this study. Procedure Note Jannette Cardona PA - 04/23/2013 Please see scanned document for results of this study. Destini Judge NP DEXA from Last 3 Months or Most Recently Relevant to Health Maintenance Advance Directives Documents on File Type Date Recorded Patient Senior Trial Attorney Expl anation Healthcare Directive 09/01/2005 * Full Code (Latest Code Status on File) Date Activated Date Inactivated Comments 07/10/2006 2:14 PM 07/10/2006 10:42 PM * Full Code Date Activated Date Inactivated Comments 03/27/2006 7:15 AM 03/27/2006 12:56 PM * Full Code Date Activated Date Inactivated Comments 08/27/2005 6:28 AM 08/30/2005 4:46 PM Care Teams Electric Meter Repairer Apprentice Relationship Specialty Start Date End Date Clinic, [facility] [address] [place] [address] PCP - General 10/14/13 Kosta Mercado [address] [place] [id number] Ophthalmology Electrical Assembly Supervisor 01/13/13
== END 2024-02-11 10:54 | disposition home or self-care (01) ==
LOC: NFLDREF 10:56
PROVIDERS: PCP Internal Medicine; Visit Provider Family Medicine
DX: R63.4 Abnormal weight loss (principal)
CPT/HCPCS: 80053

== ENCOUNTER 2024-02-24 07:16 | Outpatient (CLI) | payer MEDICARE, SELFPAY ==
--- OUTSIDE RECORDS SUMMARY | 2024-02-24 07:18 | XMS_ITS | Clinical Summary ---
Author Organization [facility] Address [place], [place] [address] Care Team Providers Care Family Nurse Practitioner Name Role Phone Kosta Mercado May Unavailable [phone] Clinic, [facility] Allergies No known [...] Osteopenia 01/09/2010 03/29/2010 Unspecified sleep apnea 08/25/200607/2010 Encounters Date Type Department Care Team Description 02/17/2024 Transcribe Orders [facility] [place] [phone] Lionel Vasquez MD from Last 3 Months Immunizations Name Administration Dates Next Due Influenza [...] Comments Blood Pressure 136/77 04/17/2021 11:32 AM ETYMOLOGY TEACHER Pulse 85 04/17/2021 11:32 AM ETYMOLOGY TEACHER Temperature 36.7 C (98.1 F) 09/03/2018 11:34 AM CDT Respiratory Rate 16 01/13/2013 1:58 PM CDT Oxygen Saturation 96% 04/17/2021 11:32 AM ETYMOLOGY TEACHER Inhaled Oxygen Concentration - - Weight 85 kg (187 lb 4.8 oz) 04/17/2021 11:32 AM ETYMOLOGY TEACHER Height 172.7 cm (5' 8) 08/14/2018 3:49 [...] 08/14/2018, 12/26/2008 Medical Devices Implanted Type Area Sales Team Manager Device Identifier Shelf Expiration Date Model / Serial / Lot Implnt Mammary 350-1485 - [id number] Implanted:Qty: 1 on 08/27/2005 at [facility] Explanted:at [facility] (Quantity not on file) Left: Breast [employer] IMPLANTS 350-1485# / [id number] Implnt Mammary 600cc - [id number] Implanted:Qty: 1 on 03/27/2006 at [facility] Explanted:at [facility] (Quantity not on file) Left: Breast [employer] IMPLANTS [id number] # / [id number] Procedures Procedure Name Priority Date/Time Associated Diagnosis Comments XR DXA BONE DENSITY 2 SITES AXIAL Routine 04/08/2013 9:46 AM ETYMOLOGY TEACHER Unspecified osteoporosis from Last 3 Months or Most Recently Relevant to Health Maintenance Results * (ABNORMAL) XR DXA BONE DENSITY 2 SITES (04/08/2013 9:46 AM ETYMOLOGY TEACHER) Anatomical Region Laterality Modality Spine, HIPS, HIPL, HIPR Other Narrative 04/23/2013 10:50 AM ETYMOLOGY TEACHER Please see scanned document for results of this study. Procedure Note Jannette Cardona PA - 04/23/2013 Please see scanned document for results of this study. Destini Judge NP DEXA from Last 3 Months or Most Recently Relevant to Health Maintenance Advance Directives Documents on File Type Date Recorded Patient Developer Programmer Expl anation Healthcare Directive 09/01/2005 * Full Code (Latest Code Status on File) Date Activated Date Inactivated Comments 07/10/2006 2:14 PM 07/10/2006 10:42 PM * Full Code Date Activated Date Inactivated Comments 03/27/2006 7:15 AM 03/27/2006 12:56 PM * Full Code Date Activated Date Inactivated Comments 08/27/2005 6:28 AM 08/30/2005 4:46 PM Care Teams Family Nurse Practitioner Relationship Specialty Start Date End Date Clinic, [facility] [address] [place] [address] PCP - General 10/14/13 Kosta Mercado [address] [place] [id number] Ophthalmology Parking Enforcement Officer 01/13/13
[2024-02-24 07:31] VITALS: BMI 29.8
[2024-02-24 07:34] VITALS: BP 133/69; PULSE 87; RESP 16; O2SAT 95
[2024-02-24 08:30] VITALS: BP 94/59; PULSE 78; RESP 16; O2SAT 98
--- NOTE | 2024-02-24 08:35 | W.ANESCHARGE ---
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
[2024-02-24 08:43] VITALS: BP 101/56; PULSE 72; RESP 16; O2SAT 93
[2024-02-24 08:47] LABS: Basophils Percent Auto 0.3 % (0.0-3.0); Hematocrit 62.4 % (33.0-51.0); Hemoglobin* 20.5 gm/dL (12.0-16.0); Immature Granulocytes Pct Auto 1.7 %; Immature Reticulocyte Fraction 11.1 % (3.0-15.9); Mean Corpuscular HGB Conc 33 gm/dL (32-36); Mean Corpuscular Hemoglobin 30 pg (26-34); Mean Corpuscular Volume 91 fL (80-100); Monocytes Percent Auto 5.7 % (0.0-11.0); Neutrophils Percent Auto 82.3 % (42.0-72.0); Platelet Count* 194 K/uL (140-440); Red Blood Count 6.84 m/uL (4.00-5.20); Reticulocyte Hemoglobin Equivi 32.4 pg (29.0-35.0); Reticulocyte Percent 1.1 % (0.5-2.0); Reticulocytes Absolute 0.07 # (0.03-0.08); White Blood Count* 3.49 K/uL (4.50-11.00)
[2024-02-24 08:52] LABS: Slide Review Reflex No
[2024-02-24 08:53] VITALS: BP 95/55; PULSE 76; RESP 16; O2SAT 94
--- NOTE | 2024-02-24 09:10 | W.ANESCHARGE ---
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
== END 2024-02-24 09:07 | disposition home or self-care (01) ==
PROVIDERS: Family Medicine; PCP Internal Medicine; Visit Provider Physician Assistant
DX: D75.9 Disease of blood and blood-forming organs, unspecified (principal); C79.51 Secondary malignant neoplasm of bone
CPT/HCPCS: 01112; 36415; 38222; 85025; 85045; 88184; 88185; 88237; 88264; 88305; 88311; 88313; 88341; 88342; 88360; 88361; 99100; J1644; J2003; J2704

== ENCOUNTER 2024-03-04 14:18 | Outpatient (CLI) | payer MEDICARE, SELFPAY ==
--- NOTE | 2024-03-04 14:30 | CRLHL7_ITS ---
For Patients: As a result of the Century Cures Act, medical imaging exams and procedure reports are released immediately into your electronic medical record. You may view this report before your referring provider. If you have questions, please contact your health care provider. INDICATION: Breast cancer. COMPARISON: 01/01/2023. 05/11/2021. TECHNIQUE: Multiplanar T1, T2, FLAIR and diffusion-weighted imaging. Post gadolinium T1 weighted sequences. FINDINGS: Compared to the previous exam, new diffusely abnormal heterogeneous signal intensity and enhancement of the calvarium and skullbase and visualized upper cervical spine consistent with widespread osseous metastases. Post vesna imaging also demonstrates an enhancing extra-axial mass adjacent to the right frontal lobe measuring 3 x 0.7 cm (series 1001, image 60). Given the widespread calvarial metastases, findings may represent intracranial extension of tumor. There is no edema in the immediately adjacent brain parenchyma. Other differential considerations include a meningioma. No new abnormal enhancement or enhanced lesions elsewhere. Mild generalized volume loss. Scattered patchy T2/FLAIR signal hyperintensity within the white matter both supra hemispheres consistent with chronic deep white matter small ischemic changes. No intracranial hemorrhage. No abnormal ventricular dilatation. Intracranial vascular flow voids are preserved. No mass effect or midline shift. No susceptibility artifact of remote hemorrhage. No restricted diffusion to suggest acute ischemia. Bilateral orbits are unremarkable. Partially empty sella which is an incidental finding for patient of this age. Visualized paranasal sinuses mastoid air cells are unremarkable. IMPRESSION: 1. New widespread osseous metastases of the calvarium, skull base and visualized upper cervical spine. 2. There is a enhancing extra-axial mass adjacent to the right frontal lobe which may represent intracranial extension of osseous metastasis or meningioma. No edema in the immediately adjacent brain parenchyma. 3. No acute intracranial abnormality. 4. Mild generalized cerebral volume loss. Chronic deep white matter small vessel ischemic changes Dictated by Pino Bower MD @ 03/06/2024 11:13:45 AM (Electronically Signed)
--- NOTE | 2024-03-04 15:30 | CRLHL7_ITS ---
For Patients: As a result of the Century Cures Act, medical imaging exams and procedure reports are released immediately into your electronic medical record. You may view this report before your referring provider. If you have questions, please contact your health care provider. INDICATION: Breast cancer. COMPARISON: 01/01/2023. TECHNIQUE: Sagittal T1, T2, and STIR sequences. Axial T2/gradient sequences. Post gadolinium T1 weighted sequences. FINDINGS: Normal vertebral body facet alignment. No fractures. No vertebral body loss of height. No spondylolisthesis. No ligamentous injury. Compared to the previous exam, there is new widespread abnormal signal intensity enhancement of the cervical and visualized upper thoracic spine and visualized skullbase and clivus consistent with osseous metastases. No pathologic fractures. No enhancing tumor extending into the epidural space. Normal cord signal. No intradural mass or lesion. C1-2: No spinal canal narrowing. C2-3: No spinal canal or neural foraminal narrowing. C3-4: Posterior disc bulge. No narrowing of spinal canal. Moderate severe right and mild left neural foraminal narrowing. Potential impingement of the right C4 nerve root. C4-5: Disc generation broad-based disc osteophyte complex. Mild narrowing of spinal canal. Moderate severe narrowing of the right neural foramen. Moderate narrowing of the left neural foramen. C5-6: Disc degeneration broad-based disc osteophyte complex. Mild narrowing of spinal canal. Moderate narrowing of the bilateral foramina. C6-7: Disc generation broad-based disc osteophyte complex. Mild narrowing of spinal canal. Mild narrowing of left neural foramen. No narrowing of the right neural foramen. C7-T1: No spinal canal or neural foraminal narrowing. IMPRESSION: 1. Normal alignment. No fractures. 2. New widespread osseous metastases throughout the cervical and thoracic spine. 3. No pathologic fractures. No tumor extending into the epidural space. 4. Normal cord signal. 5. Cervical spondylosis. 6. Moderate to severe narrowing of the right neural foramina at C3-4 and C4-5. 7. Moderate narrowing of the bilateral neural foramina at C5-6 Dictated by Pino Bower MD @ 03/06/2024 11:16:52 AM (Electronically Signed)
== END 2024-03-04 14:19 | disposition home or self-care (01) ==
LOC: MRI 14:19
PROVIDERS: PCP Family Medicine; Visit Provider Internal Medicine Hematology & Oncology
DX: C50.919 Malignant neoplasm of unspecified site of unspecified female breast (principal); C79.51 Secondary malignant neoplasm of bone; I67.82 Cerebral ischemia; I67.9 Cerebrovascular disease, unspecified; M47.892 Other spondylosis, cervical region; M50.21 Other cervical disc displacement, high cervical region; M50.222 Other cervical disc displacement at C5-C6 level; Z85.3 Personal history of malignant neoplasm of breast
CPT/HCPCS: 70553; 72156; A9575

== ENCOUNTER 2024-03-09 11:29 | Outpatient (CLI) | payer MEDICARE, SELFPAY ==
--- NOTE | 2024-03-09 11:30 | CRLHL7_ITS ---
For Patients: As a result of the Century Cures Act, medical imaging exams and procedure reports are released immediately into your electronic medical record. You may view this report before your referring provider. If you have questions, please contact your health care provider. INDICATION: Breast cancer, pelvis pain. TECHNIQUE: Single-view of the pelvis. COMPARISON: 06/09/2013 pelvis x-ray, 02/02/2024 lumbar spine MRI. FINDINGS: New areas of sclerosis within the pelvis including lateral left iliac bone, left inferior pubic ramus, possibly right inferior pubic ramus, left proximal femur, compatible with metastases. Dictated by Ravi Segovia MD @ 03/10/2024 9:30:12 AM (Electronically Signed)
--- NOTE | 2024-03-09 11:45 | CRLHL7_ITS ---
For Patients: As a result of the Century Cures Act, medical imaging exams and procedure reports are released immediately into your electronic medical record. You may view this report before your referring provider. If you have questions, please contact your health care provider. INDICATION: Breast cancer, bone pain. TECHNIQUE: Two views of the left femur. FINDINGS: Subtle areas of sclerosis in the proximal left femur, left pubic bone, imaged left iliac bone compatible with metastases. Dictated by Ravi Segovia MD @ 03/10/2024 9:33:18 AM (Electronically Signed)
--- NOTE | 2024-03-09 12:00 | CRLHL7_ITS ---
For Patients: As a result of the Century Cures Act, medical imaging exams and procedure reports are released immediately into your electronic medical record. You may view this report before your referring provider. If you have questions, please contact your health care provider. INDICATION: Breast cancer, bone pain. TECHNIQUE: Two views of the right femur. FINDINGS: No discrete bony lesion within the right femur. No fracture. Possible sclerotic metastasis in the right inferior pubic ramus. Dictated by Ravi Segovia MD @ 03/10/2024 9:31:47 AM (Electronically Signed)
== END 2024-03-09 11:30 | disposition home or self-care (01) ==
LOC: RAD 11:30
PROVIDERS: PCP Family Medicine; Visit Provider Physician Assistant
DX: C50.912 Malignant neoplasm of unspecified site of left female breast (principal); M89.8X8 Other specified disorders of bone, other site; C79.51 Secondary malignant neoplasm of bone; R10.2 Pelvic and perineal pain
CPT/HCPCS: 72170; 73552

== ENCOUNTER 2024-04-07 14:15 | Outpatient (CLI) | payer MEDICARE, SELFPAY ==
--- NOTE | 2024-04-07 14:30 | CRLHL7_ITS ---
For Patients: As a result of the Century Cures Act, medical imaging exams and procedure reports are released immediately into your electronic medical record. You may view this report before your referring provider. If you have questions, please contact your health care provider. XR DXA Bone Mineral Density (BMD) Reason for exam: History of breast and bone cancer. Current height (in): 67. Weight (lb): 168. Menopause age: 47. Ethnicity: White. 1. Have you had a previous hip or vertebral fracture? No. 2. Have you had any fractures during your adult life which did not result from significant trauma (e.g., auto accident)? No. 3. Did either of your parents have a hip fracture? No. 4. Do you smoke? No. 5. Have you ever taken Glucocorticoids? No. 6. Do you have rheumatoid arthritis? No. 7. Do you have secondary osteoporosis? No. 8. Do you drink 3 or more alcoholic drinks per day? No. 9. Are you being treated for osteoporosis? No. 10. Have you ever taken any of the following medications: Actonel, Evista, Fosamax, Miacalcin, Reclast, Boniva, Forteo, HRT (i.e., estrogen/hormone therapy), Protelos, Prolia, Vitamin D, Calcium, other ??? please specify. ANSWER: Yes, Fosamax (i.e., alendronate) and calcium. 11. Do you have any of the following medical conditions: Anorexia or bulimia, asthma or emphysema, end stage renal disease, hyperparathyroidism, any seizure disorders, cancer, inflammatory bowel diseases, hysterectomy, other ??? please specify. ANSWER: Yes, cancer. 12. What was your maximum height (inches)? 68. 13. Do you perform weight bearing exercise regularly? No. 14. Do you regularly consume dairy products? Yes. 15. Do you drink caffeinated beverages? Yes. 16. At what age did your period start? 16. 17. Are you premenopausal? No. 18. How many full-term pregnancies have you had? 3. 19. Have you ever missed your period for more than 6 months in a row (not including or menopause)? No. TECHNIQUE: Bone mineral density study was performed using the [employer]. FINDINGS: The results of the study expressed as bone mineral density (BMD) are as follows: Lumbar spine L1 to L2: BMD: 0.967 g/cm2. T-score: -0.1. Z-score: 2.2 Neck Left: BMD: 0.662 g/cm2. T-score: -1.7. Z-score: 0.5 Right: BMD: 0.726 g/cm2. T-score: -1.1. Z-score: 1.0 Total Left: BMD: 0.824 g/cm2. T-score: -1.0. Z-score: 0.9 Right: BMD: 0.831 g/cm2. T-score: -0.9. Z-score: 0.9 IMPRESSION: Osteopenia. *Comparison exams done prior to 08/2019 were performed on different unit, [facility]. COMPARISON: Compared with scan of 06/27/2021, the bone mineral density has increased by 20.7 percent at the spine and increased by 68 percent at the hip. Compared with scan of 03/11/2016, the bone mineral density has decreased by 1.5 percent at the spine and decreased by 5.2 percent at the hip. FRAX 10-year Fracture Risk Major Osteoporotic Fracture: 12% Hip Fracture: 2.8% Reported Risk Factors: [place] () Neck BMD=0.662, BMI=26.3 Parth Tan M.D. Diagnostic Radiologist [email or web address] BRIAN/[email or web address] [email or web address]/Dictated by: Parth Tan MD @ 04/08/2024 10:23:00 AM (Electronically Signed)
== END 2024-04-07 14:16 | disposition home or self-care (01) ==
LOC: RAD 14:19
PROVIDERS: PCP Family Medicine; Visit Provider Internal Medicine Hematology & Oncology
DX: C50.919 Malignant neoplasm of unspecified site of unspecified female breast (principal); M85.88 Other specified disorders of bone density and structure, other site; C79.51 Secondary malignant neoplasm of bone
CPT/HCPCS: 77080

== ENCOUNTER 2024-05-05 15:20 | Outpatient (CLI) | payer MEDICARE, SELFPAY | END 2024-05-05 15:21 | disposition home or self-care (01) | LOC: MRI 15:20 | PROVIDERS: PCP Family Medicine; Visit Provider Physician Assistant | DX: C50.919 Malignant neoplasm of unspecified site of unspecified female breast (principal); G93.9 Disorder of brain, unspecified; C79.51 Secondary malignant neoplasm of bone | CPT/HCPCS: 70553; A9575 ==

== ENCOUNTER 2024-06-17 12:48 | Outpatient (CLI) | payer MEDICARE, SELFPAY ==
--- NOTE | 2024-06-17 13:30 | CRLHL7_ITS ---
For Patients: As a result of the 21st Century Cures Act, medical imaging exams and procedure reports are released immediately into your electronic medical record. You may view this report before your referring provider. If you have questions, please contact your health care provider. EXAM: PET-CT SKULL VERTEX TO THIGH CLINICAL INFORMATION: 78-yo Female with metastatic breast cancer. Patient is referred for further characterization. TECHNIQUE: Radiopharmaceutical: 12.7 mCi of 18F-FDG Intravenous injection site: Right hand Uptake time: 50 minutes Blood glucose level at the time of injection: 83 mg/dL Field of view: Skull vertex to mid-thighs CT protocol: The low-dose, free-breathing, noncontrast CT performed as part of this study is designed for the purposes of attenuation correction and lesion localization, and it is neither sufficient, nor it should be substituted for diagnostic purposes. COMPARISON: PET-CT 03/01/2024. MRI brain 05/05/2024. MRI cervical spine 03/04/2024. MRI thoracic and lumbar spine 02/02/2024 FINDINGS: Physiologic background liver standardized uptake value (SUV mean and SUV max) reported for comparison between PET studies: 2.4 and 2.9. Visualized head and neck: Physiologic uptake in the brain and salivary glands. No enlarged or hypermetabolic cervical chain lymph nodes. Lungs: Respiratory motion. Scattered diffuse emphysematous changes. No abnormal uptake in the lungs. Bilateral micronodules without uptake too small to characterize. No significant change. Dependent areas of atelectasis. No consolidation. Thoracic lymph nodes: No enlarged or hypermetabolic mediastinal, hilar or right axillary lymph nodes. Prior left axillary lymph node dissection with no abnormal uptake. Other chest findings: Scattered diffuse coronary vessel calcifications. Postsurgical changes with prior left chest mastectomy and implant reconstruction. No abnormal soft tissue, chest wall or axillary angie uptake. Small hiatal hernia. Distal esophageal uptake with no noncontrast CT abnormality could be reactive or related to reflux. Hepatobiliary: Hepatic steatosis. No measurable tracer avid liver lesions. Spleen: No abnormal uptake. No splenomegaly. Pancreas: No abnormal uptake. No adjacent inflammatory change. Adrenal glands: Similar low-density right adrenal nodule with decreased uptake, 1.5 cm, SUV max 2.5. Previously 1.6 cm, SUV max 3.7. No abnormal left adrenal uptake. Kidneys and bladder: Similar bilateral low-density renal cortical lesions without uptake. Possibly small cysts. Left-sided parapelvic cysts. No obstruction. Limited bladder distention. Bowel and peritoneum: Small hiatal hernia with uptake. No obvious noncontrast CT abnormality. Limited gastric distension. Areas of uptake in the distal small bowel and portions of the colon with no noncontrast CT abnormality are nonspecific, possibly reactive or physiologic. Diffuse colonic diverticulosis. No inflammatory changes. Pelvic organs: No abnormal uptake. Abdominopelvic lymph nodes: No enlarged or hypermetabolic abdominopelvic lymph nodes. Musculoskeletal, soft tissues, skin: Generally decreased overall background uptake in spine and pelvis. No new aggressive, lytic or expansile osseous lesions with uptake. Otherwise similar distribution of widespread sclerotic skeletal metastases throughout the skull, spine, thorax/ribs, pelvis, sacrum and extremities. Scattered medullary lesions in the bilateral upper and lower extremities demonstrate variable increased uptake. Additional variable activity evident throughout the balance of the skeletal metastases in the axial and appendicular skeleton. For example: -C7 vertebral body lesion, SUV max 4.5. Previously 4.0. -right manubrium lesion, SUV max 1.9. Previously 4.8. -cortical lesion mid shaft right humerus, SUV max 8.6. Previously 5.1. -sclerotic left glenoid lesion, SUV max 2.3. Previously 4.7. -right anterior 1st rib lesion, SUV max 3.9. Previously 2.8. -right clavicular head lesion, SUV max 2.1. Previously 5.0. -right posterior iliac lesion, SUV max 4.7. Previously 5.5. -right sacral body lesion, SUV max 4.9. Previously 5.1. -right anterior acetabulum lesion, SUV max 6.3. Previously 4.3. -medullary lesion proximal right femur, SUV max 7.4. Previously 7.5. Other: Chronic appearing endplate and vertebral body deformities involving T4, T6, T7, T11, T12. More conspicuous superior endplate depression of L1. Scattered diffuse aortoiliac vascular calcifications. IMPRESSION: 1. No new aggressive, lytic or expansile osseous lesions uptake. Otherwise similar distribution of widespread sclerotic skeletal metastases throughout the visualized osseous structures with generally decreased overall background uptake in the spine. Variable residual uptake within a number of small sclerotic skeletal lesions as detailed in the findings. 2. Prior left breast mastectomy with implant reconstruction and left axillary lymph node dissection. No suspicious left chest, chest wall or left axillary angie uptake. 3. No abnormal uptake in the soft tissues of the neck, lungs or solid organs of the upper abdomen. No new hypermetabolic abdominopelvic lymph nodes. 4. Similar low-density right adrenal nodule with decreased uptake. 5. Other nonacute findings as detailed in the body of the report. Dictated by Kosta Hightower MD @ 06/17/2024 5:59:31 PM (Electronically Signed)
== END 2024-06-17 12:49 | disposition home or self-care (01) ==
LOC: RAD 12:49
PROVIDERS: PCP Family Medicine; Visit Provider Physician Assistant
DX: C50.919 Malignant neoplasm of unspecified site of unspecified female breast (principal); C79.51 Secondary malignant neoplasm of bone; E27.9 Disorder of adrenal gland, unspecified
CPT/HCPCS: 78815; A9552

== ENCOUNTER 2024-07-12 10:05 | Outpatient (CLI) | payer MEDICARE, SELFPAY | END 2024-07-12 10:06 | disposition home or self-care (01) | LOC: NFLDREF 07-14 02:43 | PROVIDERS: PCP Family Medicine; Referring Provider Family Medicine; Visit Provider Family Medicine | DX: M85.80 Other specified disorders of bone density and structure, unspecified site (principal); I63.81 Other cerebral infarction due to occlusion or stenosis of small artery; G45.3 Amaurosis fugax; Z13.1 Encounter for screening for diabetes mellitus | CPT/HCPCS: 80061; 82306; 82947 ==

== ENCOUNTER 2024-08-03 15:18 | Outpatient (CLI) | payer MEDICARE, SELFPAY ==
--- NOTE | 2024-08-03 15:30 | CRLHL7_ITS ---
For Patients: As a result of the Century Cures Act, medical imaging exams and procedure reports are released immediately into your electronic medical record. You may view this report before your referring provider. If you have questions, please contact your health care provider. INDICATION: Metastatic breast cancer. COMPARISON: PET scan 06/17/2024. MRI 05/05/2024. TECHNIQUE: Multiplanar T1, T2, FLAIR and diffusion-weighted imaging. Post gadolinium T1 weighted sequences. Gadolinium 15 cc IV. FINDINGS: Mild generalized volume loss. Scattered patchy T2/FLAIR signal hyperintensity within the white matter of both cerebral hemispheres consistent with chronic deep white matter small ischemic changes. No intracranial hemorrhage. No abnormal ventricular dilatation. Intracranial vascular flow voids are preserved. No mass effect. No midline shift. No restricted diffusion to suggest acute ischemia. No susceptibility artifact of remote hemorrhage. No abnormal enhancement or enhancing lesions within the brain parenchyma. Compared to the previous MRI, continued interval decreased thickness of the enhancing dura adjacent to the right frontal lobe (compare series 1007, image 63 of the current exam with series 1007, image 70 of the previous exam). Stable diffuse osseous metastases throughout the calvarium, skullbase, and visualized cervical spine. Bilateral orbits are unremarkable. Vision mild mucosal thickening left maxillary sinus. Remaining visualized paranasal sinuses and mastoid air cells are unremarkable. IMPRESSION: 1. No acute intracranial abnormality 2. Stable diffuse osseous metastases throughout the calvarium, skull base and visualized cervical spine. 3. No new abnormal enhancement or enhancing lesions within the brain parenchyma. 4. Continued interval decrease thickness of the enhancing dura adjacent to the right frontal lobe. As described on previous exams, this dural thickening may be related to osseous metastasis versus a meningioma. 5. Mild generalized cerebral volume loss. Chronic deep white matter small vessel ischemic changes. 6. No acute or chronic intracranial hemorrhage Dictated by Pino Bower MD @ 08/05/2024 8:52:04 AM (Electronically Signed)
== END 2024-08-03 15:19 | disposition home or self-care (01) ==
PROVIDERS: PCP Family Medicine; Visit Provider Physician Assistant
DX: C50.919 Malignant neoplasm of unspecified site of unspecified female breast (principal); C79.52 Secondary malignant neoplasm of bone marrow; C79.51 Secondary malignant neoplasm of bone; I67.82 Cerebral ischemia
CPT/HCPCS: 70553; A9575

== ENCOUNTER 2024-08-09 13:15 | Outpatient (RCR) | payer MEDICARE, SELFPAY ==
--- NOTE | 2024-03-03 16:08 | ONC.NURNOTE ---
Met with patient and daughter after consult: 1. MRI brain and cervical spine scheduled for 03/04 2. Will request Foundation One testing from bone marrow sample once all testing is finalized. 3. Genetics referral faxed to [facility]. They will call patient to schedule. 4. Dental clearance form given. Patient will drop off at her dentist this week. 5. Follow up next week 03/08 to review results and start treatment planning. Patient encouraged to call with questions or concerns.
[2024-03-08 12:45] LABS: Basophils Absolute Auto 0.03 K/uL (0.00-0.30); Basophils Percent Auto 0.4 % (0.0-3.0); Hematocrit 41.6 % (33.0-51.0); Hemoglobin* 13.1 gm/dL (12.0-16.0); Immature Granulocytes Abs Auto 0.04 K/uL (0.00-0.30); Immature Granulocytes Pct Auto 0.5 %; Mean Corpuscular HGB Conc 32 gm/dL (32-36); Mean Corpuscular Hemoglobin 30 pg (26-34); Mean Corpuscular Volume 96 fL (80-100); Monocytes Percent Auto 5.7 % (0.0-11.0); Neutrophils Percent Auto 80.4 % (42.0-72.0); Platelet Count* 341 K/uL (140-440); RDW Coefficient of Variation % 14.4 % (11.5-15.5); Red Blood Count 4.32 m/uL (4.00-5.20); White Blood Count* 7.37 K/uL (4.50-11.00)
[2024-03-08 12:48] LABS: Slide Review Reflex No
[2024-03-08 13:04] LABS: Chloride* 105 mmol/L (96-114)
[2024-03-08 13:05] LABS: Potassium* 4.1 mmol/L (3.6-5.1); Sodium* 143 mmol/L (135-149)
[2024-03-08 13:07] LABS: Anion Gap 9 mEq/L (7-15); Bilirubin Total* 0.4 mg/dL (0.1-1.5); Carbon Dioxide* 29 mmol/L (20-32); Creatinine* 0.6 mg/dL (0.5-1.5); Est. Creatinine Clearance* 46.54; Estimated Glomerular Filt Rate 93 ml/min
[2024-03-08 13:08] LABS: Alanine Aminotransferase* 22 U/L (4-35); Alkaline Phosphatase* 301 U/L (40-150); Aspartate Amino Transferase* 46 U/L (12-35); Blood Urea Nitrogen* 16 mg/dL (7-30); Calcium* 9.2 mg/dL (8.4-10.6); Glucose* 109 mg/dL (60-115); Lactate Dehydrogenase* 357 U/L (120-246); Total Protein* 6.8 g/dL (6.0-8.3)
--- NOTE | 2024-03-08 15:28 | ONC.NURNOTE ---
I met with patient and her daughter after her visit with Dr. Finn. We discussed the plan of care and specialty pharmacy process. 1. Rad-Onc referral and supporting documents faxed to [facility]. They will call patient to schedule. 2. Verzenio Rx and insurance information faxed to [facility] specialty pharmacy. Patient aware that she will not start the Verzenio until radiation is completed. 3. Request for Foundation One testing requested from bone marrow specimen. 4. Patient has genetic counseling appointment tomorrow. 5. DEXA scan scheduled for 04/07. 6. Patient will start Anastrozole today. 7. Patient dropped off dental clearance form with dentist last week. Patient encouraged to call with questions or concerns.
--- NOTE | 2024-03-10 15:08 | ONC.NURNOTE ---
Addendum entered by Sasha Woodard 03/15/24 15:35: PA approved but monthly co-pay is $2258. [employer]N will explore financial assistance options although the patient does not think she will qualify based on her income. Original Note: ABIGAIL Coppola submitted to [employer]. Will await outcome.
--- NOTE | 2024-03-22 13:47 | ONC.NURNOTE ---
Due to high co-pay for Verzenio, BCN offered to help with co-pay assistance programs. Patient states she feels confident that due to her income, she will not qualify for patient assistance. [employer] emailed patient information about new changes for Medicare Part D plans effective March 24, 2024. BCN encouraged patient to call her prescription plan to confirm that she qualifies. If so, patient plans to pay the full $2000 the first month and she will have met her out of pocket maximum. If she doesn't apply, I told her that we should try to work with the drug telemetry tech to see what our options are. Patient will call [facility] March 25 to arrange shipment as she wants to get started on the medication KEEGAN. MOLINA will meet with her for teaching and baseline labs 03/26.
--- OUTSIDE RECORDS SUMMARY | 2024-03-26 07:32 | XMS_ITS | Clinical Summary ---
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 For routine questions regarding patient records, call [phone] during business hours, M-F 8:00 AM - 5:00 PM Central Time. Record requests for emergency care only can be directed to [phone] at any time.[facility] Allergies No known active allergies Medications * This document contains information received from the source organization and may not represent a complete record from that organization. alendronate (FOSAMAX) 35 mg tablet Take 35 mg by mouth once a week. 3 Active fluticasone propionate (FLONASE) 50 mcg/actuation nasal spray Administer 1 spray into each nostril daily. 3 Active metoprolol tartrate (LOPRESSOR) 25 mg tablet Take 25 mg by mouth 2 (two) times a day. 3 Active simvastatin (ZOCOR) 20 mg tablet Take 20 mg by mouth at bedtime. 3 Active venlafaxine XR (EFFEXOR-XR) 37.5 mg 24 hr capsule Take by mouth daily. [address] Active [address] tablet Take 81 mg by mouth daily. Active azelastine (ASTEPRO) 205.5 mcg/spray (0.15 %) nasal spray Administer 2 sprays into each nostril 2 (two) times a day. 30 mL 11 3 Active Additional Information Patient not taking.Reported on 03/09/2024 fluticasone propionate (FLONASE) 50 mcg/actuation nasal spray SHAKE LIQUID AND USE 2 SPRAYS IN EACH NOSTRIL DAILY 48 g 3 Active Additional Information Patient not taking.Reported on 03/09/2024 anastrozole (Arimidex) 1 mg tablet Take 1 mg by mouth daily. Swallow whole with a drink of water. 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 (HCC) (Primary Dx); Secondary Malignant Neoplasm Bone (HCC) from Last 3 Months Family History Medical History Relation Name Comments Colon cancer Aunt 1 Colon cancer Aunt 2 Bladder cancer Father Cancer Father Jaw Leukemia Paternal Grandmother Relation Name Status Comments Aunt 1 Aunt 2 Father Paternal Grandmother Social History Tobacco Use Types Packs/Day Years Used Date Smoking Tobacco: Never Smokeless Tobacco: Never Tobacco Cessation:Counseling Given: Not Answered Alcohol Use Standard Drinks/Week Comments Yes 2 (1 standard drink = 0.6 oz pur e alcohol) [facility] Exieities Answer Date Recorded In the past 12 months has [facility] [employer], gas, oil, or water [employer] threatened to shut off services in your home? No 03/08/2024 Humiliation, Afraid, Rape, and Kick questionnair e [...] often do you attend chur ch or congregational services? More than 4 times per year 07/18/2022 Do you belong to any clubs o r organizations such as baptist groups, unions, fraternal or athletic groups, or [...] and heating? Not hard at all 07/18/2022 [facility] - Occupational Stress [...] exercise (like a brisk walk)? 3 days 03/08/2024 On average, how many minutes do you engage in exercise at this level? 30 min 03/08/2024 Hunger Vital Sign Answer Date Recorded Within the past 12 months, y ou worried that your food would run out before you got the money to buy more. Never true 03/08/20 24 Within the past 12 months, t he food you bought just didn't last and you didn't have money to get more. Never true 03/08/2024 PRAPARE - Transportation Answer Date Re corded In the past 12 months, has l ack of transportation kept you from medical appointments or from getting medications? No 02/21 In the past 12 months, has l ack of transportation kept you from meetings, work, or from getting things needed for daily living? No 03/08/2024 Nutrition Answer Date Recorded On average, how many serving s of fruits and vegetables do you eat per day (serving size is equal to 1 cup or approximately the size of a tennis ball)? 3-5 03/08/2024 Dental Answer Date Recorded Dental: Regular Dentist Yes 07/19/19 Employment Answer Date Recorded Employment status Retired 03/08/2024 Housing Stability Answer Date Recorded What is your living situation today? I h ave a place to live today, but I am worried about losing it in the future 03/08/2024 Education Answer Date Recorded What is the highest level of school you have completed or the highest degree you have received? Bachelor's degree (e.g., BA, AB, BS) 07/18/2022 Comments Unknown Sex and Gender Information Value Date Recorded Sex Assigned at Female 07/18/2022 8:01 PM CDT Legal Sex Female 11:38 AM CDT Gender Identity Female 07/18/2022 8:01 PM CDT Sexual Orientation Straight 07/18/2022 8: 01 PM CDT Last Filed Vital Signs Vital Sign Reading Time Taken Comments Blood Pressure 132/63 03/09/2024 9:58 AM TECHNICAL HEALTHCARE CONSULTANT Pulse 84 03/09/2024 9:58 AM TECHNICAL HEALTHCARE CONSULTANT Temperature 36.7 C (98 F) 03/09/2024 9:58 AM TECHNICAL HEALTHCARE CONSULTANT Respiratory Rate - - Oxygen Saturation - - Inhaled Oxygen Concentration - - Weight 76.3 kg (168 lb 3.4 oz) 03/09/2024 9:58 A M TECHNICAL HEALTHCARE CONSULTANT Height 172.9 cm (5' 8.07) 07/23/2022 2:24 PM CD T Body Mass Index 25.52 07/23/2022 2:24 PM CDT Plan of Treatment Health Maintenance Due Date Last Done Comments Hepatitis C Screening 1945 RSV vaccine - (32-36 weeks) or 60+ years (1 - 1-dose 75+ series) 11/30/2022 Depression Screening (Annual PHQ-2) 03/24/2023 Fall Risk Screen (Annual) 03/24/2023 COVID-19 Vaccine ( season) 2023 12/26/2022, 12/28/2021, 07/02/2021, Additional history exists Influenza Vaccine (#1) 2023 , 12/28/2021, 12/29/2020, Additional history exists DTaP,Tdap,and Td Vaccines (3 - Td or Tdap) 08/14/2028 08/14/2018, 12/26/2008 Pneumococcal vaccine (50+ years) Completed 11/28/2017, 03/10/2015, 12/19/2008 Zoster Vaccines Completed 03/01/2019, 11/23, 12/26/2008 Mammogram Discontinued 07/29/2023 HPV Vaccines Aged Out No longer eligi ble based on patient's age to complete this topic IPV Vaccines Aged Out No longer eligi ble based on patient's age to complete this topic Medical Devices Implanted Type Area Sound Mixer Device Identifier Shelf Expiration Date Model / Serial / Lot Ankle Implant Ankle Implant Right: Ankle Description:Broke lower leg/ ankle and may or may not have hardware. Procedures Procedure Name Priority Date/Time Associated Diagnosis Comments OUTSIDE DX SKELETAL Routine 03/09/2024 1 2:20 PM TECHNICAL HEALTHCARE CONSULTANT OUTSIDE DX SKELETAL Routine 03/09/2024 1 2:15 PM TECHNICAL HEALTHCARE CONSULTANT OUTSIDE DX SKELETAL Routine 03/09/2024 1 2:10 PM TECHNICAL HEALTHCARE CONSULTANT OUTSIDE MR NEURO Routine 03/04/2024 2:55 PM TECHNICAL HEALTHCARE CONSULTANT OUTSIDE MR NEURO Routine 03/04/2024 2:50 PM TECHNICAL HEALTHCARE CONSULTANT OUTSIDE NM PET Routine 03/01/2024 12:00 AM TECHNICAL HEALTHCARE CONSULTANT OUTSIDE MR NEURO Routine 02/02/2024 1:20 PM TECHNICAL HEALTHCARE CONSULTANT OUTSIDE MR NEURO Routine 02/02/2024 1:15 PM TECHNICAL HEALTHCARE CONSULTANT OUTSIDE MG MAMMOGRAM Routine 07/29/2023 3:20 PM CDT from Last 3 Months or Most Recently Relevant to Health Maintenance Results * XR femur RT 2V-Outside Skeletal Xray (03/09/2024 12:20 PM TECHNICAL HEALTHCARE CONSULTANT) Only the most recent of3 resultswithin the time period is included. 03/09/2024 12:1 1 PM TECHNICAL HEALTHCARE CONSULTANT Narrative [facility] - 03/09/2024 2:11 PM TECHNICAL HEALTHCARE CONSULTANT This order has been created and auto-finalized to support the import of outside images. If available, original interpretation can be found on the Media Tab in Chart Review, in Document Viewer, as an image in QREADS or as an Addendum. If a re-interpretation or overread is required please follow defined workflow. us Provider Not In System IM DIAGNOSTIC IMAGING NC OCEDURES Final Result Performing Organization Address [facility] Co de Phone Number [facility] NA * MR head/brain wo/w con-Outside MR Neuro (03/04/2024 2:55 PM TECHNICAL HEALTHCARE CONSULTANT) Only the most recent of4 resultswithin the time period is included. Narrative [facility] - 03/08/2024 1:21 PM TECHNICAL HEALTHCARE CONSULTANT This order has been created and auto-finalized to support the import of outside images. If available, original interpretation can be found on the Media Tab in Chart Review, in Document Viewer, as an image in QREADS or as an Addendum. If a re-interpretation or overread is required please follow defined workflow. us Provider Not In System IM MRI PROCEDURES Final Result Performing Organization Address [facility] Co de Phone Number [facility] NA * PET CT SKULL BASE TO MID THIGH INITIAL TREAT-Outside NM Pet (03/01/2024 12:00 AM TECHNICAL HEALTHCARE CONSULTANT) Narrative [facility] - 03/08/2024 3:59 PM TECHNICAL HEALTHCARE CONSULTANT This order has been created and auto-finalized to support the import of outside images. If available, original interpretation can be found on the Media Tab in Chart Review, in Document Viewer, as an image in QREADS or as an Addendum. If a re-interpretation or overread is required please follow defined workflow. us Provider Not In System IMG NM PROCEDURES Final R esult Performing Organization Address [facility] Co de Phone Number [facility] NA * MM screening mammo unilat RT-Outside Mammogram (07/29/2023 3:20 PM CDT) Narrative [facility] - 03/08/2024 1:20 PM TECHNICAL HEALTHCARE CONSULTANT This order has been created and auto-finalized to support the import of outside images. If available, original interpretation can be found on the Media Tab in Chart Review, in Document Viewer, as an image in QREADS or as an Addendum. If a re-interpretation or overread is required please follow defined workflow. us Provider Not In System IM BI PROCEDURES Final R esult Performing Organization Address [place]/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
--- OUTSIDE RECORDS SUMMARY | 2024-03-26 07:32 | XMS_ITS | Clinical Summary ---
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 0 06/23/2014 Active metoprolol tartrate (LOPRESSOR) 25 mg tablet Twice A Day 03/29/2019 Active CPAPIndications :Obstructive sleep apnea CPAP machine for home use [...] Encounters Date Type Department Care Team Description 03/10/2024 Telephone [facility] [address] [place] [address] Aster George Cancer Genetics 03/03/2024 Transcribe Orders [facility] [address] [place] [address] Neha Finn MD 03/01/2024 10:28 AM LINUX SERVER ADMINISTRATOR - 03/01/2024 11:59 PM LINUX SERVER ADMINISTRATOR Hospital Encounter [facility] Out[facility] [address] [place] [address] Lionel Vasquez MD Malignant neoplasm of unspecified site of left female breast (HC); Abnormal weight loss; Abnormal findings on diagnostic imaging of musculoskeletal system 03/01/2024 Travel 02/24/2024 Lab Requisition [facility] [phone] Lionel Vasquez MD 02/17/2024 Transcribe Orders [facility] [place] [phone] Lionel Vasquez MD from Last 3 Months [...] Paying Living Expenses Not on file 04/17/2021 Comments No Sex and Gender Information Value Date Recorded Sex Assigned at Female 03/07/2024 3:34 PM LINUX SERVER ADMINISTRATOR Legal Sex Female 6:10 AM LINUX SERVER ADMINISTRATOR Gender Identity Female 03/07/2024 3:34 PM LINUX SERVER ADMINISTRATOR Sexual Orientation Not on file Obstetrics History Last Filed Vital Signs Vital Sign Reading Time Taken Comments Blood Pressure 136/77 04/17/2021 11:32 AM LINUX SERVER ADMINISTRATOR Pulse 85 04/17/2021 11:32 AM LINUX SERVER ADMINISTRATOR Temperature 36.7 C (98.1 F) 09/03/2018 11:34 AM CDT Respiratory Rate 16 01/13/2013 1:58 PM CDT Oxygen Saturation 96% 04/17/2021 11:32 AM LINUX SERVER ADMINISTRATOR Inhaled Oxygen Concentration - - Weight 85 kg (187 lb 4.8 oz) 04/17/2021 11:32 AM LINUX SERVER ADMINISTRATOR Height 172.7 cm (5' 8) 08/14/2018 3:49 [...] Additional history exists Pneumococcal series for age 50+ Completed 11/28/2017, 03/10/2015, 12/19/2008 Tdap Completed 08/14/2018, 12/26/2008 Medical Devices Implanted Type Area Zipper Joiner Device Identifier Shelf Expiration Date Model / Serial / Lot Implnt Mammary [id number] - [id number] Implanted:Qty: 1 on 08/27/2005 at [facility] Explanted:at [facility] (Quantity not on file) Left: Breast [employer]PL[employer] [id number]# / [id number] Implnt Mammary 600cc - [id number] Implanted:Qty: 1 on 03/27/2006 at [facility] Explanted:at [facility] (Quantity not on file) Left: Breast [employer] [id number] # / [id number] Procedures Procedure Name Priority Date/Time Associated Diagnosis Comments PET CT SKULL BASE TO MID THIGH INITIAL TREAT Routine 03/01/2024 11:56 AM LINUX SERVER ADMINISTRATOR Malignant neoplasm of unspecified site of left female breast (HC) Abnormal weight loss Abnormal findings on diagnostic imaging of musculoskeletal system GLUCOSE METER Routine 03/01/2024 10:40 AM LINUX SERVER ADMINISTRATOR BONE MARROW STUDY Routine 02/24/2024 8:1 8 AM LINUX SERVER ADMINISTRATOR CHROM TECH 2 Routine 02/24/2024 8:18 AM LINUX SERVER ADMINISTRATOR CHROM TECH 1 Routine 02/24/2024 8:18 AM LINUX SERVER ADMINISTRATOR OC Routine 02/24/2024 8:18 AM LINUX SERVER ADMINISTRATOR OB Routine 02/24/2024 8:18 AM LINUX SERVER ADMINISTRATOR BM WETLAB Routine 02/24/2024 8:18 AM LINUX SERVER ADMINISTRATOR BM/LB CHROM Routine 02/24/2024 8:18 AM LINUX SERVER ADMINISTRATOR MYELOID NGS (LAB ONLY) Routine 02/24/2024 8:18 AM LINUX SERVER ADMINISTRATOR CYTOGENETICS BONE MARROW Routine 02/24/2024 8:18 AM LINUX SERVER ADMINISTRATOR BONE MARROW DIFFERENTIAL Routine 02/24/2024 8:18 AM LINUX SERVER ADMINISTRATOR LAB TRACKING EVENT Routine 02/24/2024 7: 14 AM LINUX SERVER ADMINISTRATOR XR DXA BONE DENSITY 2 SITES AXIAL Routine 04/08/2013 9:46 AM LINUX SERVER ADMINISTRATOR Unspecified osteoporosis from Last 3 Months or Most Recently Relevant to Health Maintenance Results * PET CT SKULL BASE TO MID THIGH INITIAL TREAT (03/01/2024 11:56 AM LINUX SERVER ADMINISTRATOR) Anatomical Region Laterality Modality Positron Emissio n Tomography (PET) 03/01/2024 5:29 PM LINUX SERVER ADMINISTRATOR Impressions 03/01/2024 5:29 PM LINUX SERVER ADMINISTRATOR Diffuse osseous metastatic disease. Note that metastatic disease within bilateral femoral necks increases patient risk for pathologic fracture. Dictated by Fareed Chavarria MD @ 03/01/2024 5:29:10 PM (Electronically Signed) Narrative 03/01/2024 5:29 PM LINUX SERVER ADMINISTRATOR For Patients: As a result of the Century Cures Act, medical imaging exams and procedure reports are released immediately into your electronic medical record. You may view this report before your referring provider. If you have questions, please contact your health care provider. PET CT SKULL TO THIGH History: Breast cancer, weight loss, abnormal findings on diagnostic imaging of musculoskeletal system Technique: The patient was injected with 11.0 millicuries of 18F-FDG (fluorodeoxyglucose). Following the appropriate delay interval, PET imaging from the mid brain to the mid thigh was obtained in conjunction with a noncontrast CT examination for improved localization and attenuation correction. The fused volume set was reviewed utilizing 3-D reconstruction. Blood glucose: 92 Comparison: MR thoracic and lumbar spine 02/02/2024 Findings: Max SUV within the liver today is 2.9. PET: Head and Neck: The paired glandular structures and muscles of the neck are symmetrical. No focal area of increased uptake is identified. Thorax: Postsurgical changes of left mastectomy and left breast implant are present. Normal physiologic distribution within the cardiovascular system. No focal areas of increased uptake are noted in the lung melo or mediastinum. Abdomen/Pelvis: No focal areas of increased uptake. Bones/soft tissues: Diffuse increased uptake is present throughout the femurs, pelvis, spine, sternum, a few ribs, and bilateral humeri. Multifocal sclerotic foci and heterogeneous appearance of the bones is present. Sample max SUVs: Left femoral neck with a max SUV of 4.7; sacrum with a max SUV of 6.8; L1 at 6.5; the left 6th anterior rib at 5.0; and the right proximal humeral bone marrow with a max SUV of 5.3. ADDITIONAL CT findings include background pulmonary emphysematous changes, few sub 5 millimeter pulmonary nodules, diffuse hepatic steatosis, moderate abdominal aortic atherosclerotic calcifications, stable thoracic vertebral body compression fractures, and degenerative changes within the spine. Procedure Note Fareed Chavarria MD - 03/01/2024 For Patients: As a result of the Century Cures Act, medical imagingexams and procedure reports are released immediately into your electronicmedical record. You may view this report before your referring provider.If you have questions, please contact your health care provider. PET CT SKULL TO THIGH History: Breast cancer, weight loss, abnormal findings on diagnosticimaging of musculoskeletal system Technique: The patient was injected with 11.0 millicuries of 18F-FDG(fluorodeoxyglucose). Following the appropriate delay interval, PETimaging from the mid brain to the mid thigh was obtained in conjunctionwith a noncontrast CT examination for improved localization andattenuation correction. The fused volume set was reviewed utilizing 3-Dreconstruction. Blood glucose: 92 Comparison: MR thoracic and lumbar spine 02/02/2024 Findings: Max SUV within the liver today is 2.9. PET: Head and Neck: The paired glandular structures and muscles of the neck are symmetrical.No focal area of increased uptake is identified. Thorax: Postsurgical changes of left mastectomy and left breast implant arepresent. Normal physiologic distribution within the cardiovascular system.No focal areas of increased uptake are noted in the lung melo ormediastinum. Abdomen/Pelvis: No focal areas of increased uptake. Bones/soft tissues: Diffuse increased uptake is present throughout the femurs, pelvis, spine,sternum, a few ribs, and bilateral humeri. Multifocal sclerotic foci andheterogeneous appearance of the bones is present. Sample max SUVs: Leftfemoral neck with a max SUV of 4.7; sacrum with a max SUV of 6.8; L1 at6.5; the left 6th anterior rib at 5.0; and the right proximal humeral bonemarrow with a max SUV of 5.3. ADDITIONAL CT findings include background pulmonary emphysematous changes,few sub 5 millimeter pulmonary nodules, diffuse hepatic steatosis,moderate abdominal aortic atherosclerotic calcifications, stable thoracicvertebral body compression fractures, and degenerative changes within thespine. IMPRESSION: Diffuse osseous metastatic disease. Note that metastatic disease withinbilateral femoral necks increases patient risk for pathologic fracture. Dictated by Fareed Chavarria MD @ 03/01/2024 5:29:10 PM (Electronically Signed) Lionel Vasquez MD PET Final Result * GLUCOSE METER (03/01/2024 10:40 AM LINUX SERVER ADMINISTRATOR) GLUCOSE METER 92 65 - 100 mg/dL 03/01/2024 11:27 AM LINUX SERVER ADMINISTRATOR [facility] Blood BLOOD SPECIMEN / Unknown 03/01/2024 10:40 AM LINUX SERVER ADMINISTRATOR 03/01/2024 11:27 AM LINUX SERVER ADMINISTRATOR Lionel Vasquez MD CHEMISTRY Final Result [facility] [employer] [facility] [address] [place] [address], * MYELOID NGS (LAB ONLY) (02/24/2024 8:18 AM LINUX SERVER ADMINISTRATOR) Bone Marrow (Bone Marrow Aspirate) 02/24/2024 8:18 AM LINUX SERVER ADMINISTRATOR 02/26/2024 1:47 PM LINUX SERVER ADMINISTRATOR us Lionel Vasquez MD PATHOLOGY/CYTOLOGY Final Resul t Performing Organization Address [facility] Phone [facility] [address] [place] [phone], [place] * BM/LB CHROM (02/24/2024 8:18 AM LINUX SERVER ADMINISTRATOR) Bone Marrow (Bone Marrow Aspirate) 02/24/2024 8:18 AM LINUX SERVER ADMINISTRATOR 02/26/2024 1:39 PM LINUX SERVER ADMINISTRATOR us Lionel Vasquez MD LABORATORY Final Result Performing Organization Address [facility] Phone Number [facility] [address] [place] [address], [place] * BM WETLAB (02/24/2024 8:18 AM LINUX SERVER ADMINISTRATOR) Bone Marrow (Bone Marrow Aspirate) 02/24/2024 8:18 AM LINUX SERVER ADMINISTRATOR 02/26/2024 1:39 PM LINUX SERVER ADMINISTRATOR us Lionel Vasquez MD LABORATORY Final Result Performing Organization Address [facility] Phone Number [facility] [address] [place] [id number], [place] * OC (02/24/2024 8:18 AM LINUX SERVER ADMINISTRATOR) Bone Marrow (Bone Marrow Aspirate) 02/24/2024 8:18 AM LINUX SERVER ADMINISTRATOR 02/26/2024 1:39 PM LINUX SERVER ADMINISTRATOR us Lionel Vasquez MD LABORATORY Final Result Performing Organization Address [facility] Phone Number [facility] [address] [place] [phone], [place] * OB (02/24/2024 8:18 AM LINUX SERVER ADMINISTRATOR) Bone Marrow (Bone Marrow Aspirate) 02/24/2024 8:18 AM LINUX SERVER ADMINISTRATOR 02/26/2024 1:39 PM LINUX SERVER ADMINISTRATOR Lionel Vasquez MD LABORATORY Final Result Performing Organization Address [facility] Co de Phone Number [facility] [address] [place] [phone], [place] * CHROM TECH 2 (02/24/2024 8:18 AM LINUX SERVER ADMINISTRATOR) Bone Marrow (Bone Marrow Aspirate) 02/24/2024 8:18 AM LINUX SERVER ADMINISTRATOR 02/26/2024 1:39 PM LINUX SERVER ADMINISTRATOR Lionel Vasquez MD LABORATORY Final Result Performing Organization Address [facility] Co de Phone Number [facility]ENTERJipioCENTRAL [facility]ATORY [address] [place] [phone], [place] * CHROM TECH 1 (02/24/2024 8:18 AM LINUX SERVER ADMINISTRATOR) Bone Marrow (Bone Marrow Aspirate) 02/24/2024 8:18 AM LINUX SERVER ADMINISTRATOR 02/26/2024 1:39 PM LINUX SERVER ADMINISTRATOR Lionel Vasquez MD LABORATORY Final Result Performing Organization Address [facility] Co de Phone Number [facility]Connect2meCENTRAL [facility] [address] [place] [phone], [place] * BONE MARROW DIFFERENTIAL (02/24/2024 8:18 AM LINUX SERVER ADMINISTRATOR) Bone Marrow (Bone Marrow Aspirate) Client Collect / Unknown 02/24/2024 8:18 AM LINUX SERVER ADMINISTRATOR 02/25/2024 6:59 AM LINUX SERVER ADMINISTRATOR Lionel Vasquez MD LABORATORY Final Result Performing Organization Address [facility] Co de Phone Number [facility]ENTERJipioCENTR[facility] [address] [place] [phone], [place] * CYTOGENETIC BONE MARROW STUDIES (02/24/2024 8:18 AM LINUX SERVER ADMINISTRATOR) RFR Unusually hypercellular, myeloid-predominan t marrow with some megakaryocyte atypia and borderline polycythemia 03/03/2024 5:15 PM LINUX SERVER ADMINISTRATOR [facility] ENTRAL LABORATORY TEST & RESULT SUMMARY Chromosome Analysis: Negative for a clonal chromosome abnormality. See comments. 03/03/2024 5:15 PM [facility] [[email or web address] ENTRMN LABORATORY _ 03/03/2024 5:15 PM [facility] ISCN 46,XX[20] 03/03/2024 5:15 PM [facility] INTERPRETATION Chromosome analysis revealed a normal female karyotype with no abnormal clonal population of metaphases detected. Clinicopathologic correlation of these results is recommended. 03/03/2024 5:15 PM [facility] COMMENTS A preliminary chromosome result was provided to Vineet Pierre MD on 02/27/2024. 03/03/2024 5:15 PM [facility] LAB TEST DETAILS Fully Analyzed Metaphases: 20 Partially Analyzed Metaphases: 0 Full Karyotypes: 2 03/03/2024 5:15 PM [facility] SOURCE Bone Marrow (NaHep) [id number] B1-2 03/03/2024 5:15 PM [facility] METHODS Cultures used in chromosome analysis were non-stimulated. Chromosome analysis is performed on consecutive analyzable G-banded metaphases. 03/03/2024 5:15 PM [facility] DISCLAIMER This test was developed and its performance characteristics determined by the [facility]. It has not been cleared or approved by the U.S. Food and Drug Administration. The FDA does not require these tests to go through premarket FDA review. These tests are used for clinical purposes. They should not be regarded as investigational or for research. This laboratory is certified under the Clinical Laboratory Improvement Amendments (CLIA) as qualified to perform high complexity clinical laboratory testing. 03/03/2024 5:15 PM [facility] Bone Marrow (Bone Marrow Aspirate) 02/24/2024 8:18 AM LINUX SERVER ADMINISTRATOR 02/26/2024 1:39 PM LINUX SERVER ADMINISTRATOR us Lionel Vasquez MD LABORATORY Final Result [facility] [address] [place] [address], * BONE MARROW STUDY (02/24/2024 8:18 AM LINUX SERVER ADMINISTRATOR) Case Report Bone Marrow Pathology Report Case: [id number] Authorizing Provider: Lionel Vasquez MD Collected: 02/24/2024 0818 Ordering Location: [facility] Received: 02/24/2024 1504 Pathologist: Jordyn Davidson MD Specimens: A) - Bone Marrow Aspirate, Right B) - Bone Marrow Aspirate (Heparinized), Right C) - Bone Marrow Core Biopsy, Right D) - Peripheral Blood 03/19/2024 10:30 AM LINUX SERVER ADMINISTRATOR [facility] LABORAT[facility]-C ENTRAL LABORATORY Addendum 03/04/24 - a P53 stain is performed and demonstrates partial weak to moderate staining in both the carcinoma and hematopoietic components (not distinctly overexpressed). 03/19/2024 10:30 AM [facility] LABORAT[facility]-C ENTRAL LABORATORY Addendum electronically signed by Vineet Pierre MD on 03/04/2024 at 3:06 PM Amendment 03/04/2024 - report is amended to incorporate breast ancillary studies, provisional cytogenetic results (normal karyotype), and [facility] Myeloid Targeted Next Generation Sequencing (NGS) results. Please see diagnosis and attached scanned report. 03/08/24 - report is amended to clarify breast ancillary studies performed (no Ki-67 analysis performed). 03/19/2024 - ALERT - QNS. [facility] One CDx testing was requested by . The case was reviewed by pathologist Dr. Davidson, and the specimen contains insufficient breast carcinoma cells for testing. Please contact the [facility] ([phone]) to speak with a pathologist about specimen requirements and/or alternative testing. 03/19/2024 10:30 AM [facility] LABORATORY-C ENTRAL LABORATORY Final Diagnosis BONE MARROW AND PERIPHERAL BLOOD: 1. Positive for metastatic carcinoma, consistent with breast origin a. Bone marrow involvement: 5% b. Bone marrow cellularity: 70% c. Peripheral blood: - Borderline polycythemia 2. Breast Ancillary Testing: a. Hormone Receptors: Estrogen receptor: Positive (98%, moderate staining) Progesterone receptor: Positive (86%, weak staining) b. HER2 by IHC: Negative (1+ by manual morphometry) 3. Suspicious for myeloid neoplasm a. Hypercellular marrow for patient age (70%) with trilineage hematopoiesis, increased myelopoiesis, and megakaryocyte atypia b. Bone marrow blasts: 1.4% by morphologic differential c. Please see amended comment 4. Adequate to increased storage iron; decreased sideroblastic iron 5. Ancillary studies: a. Cytogenetics: - Preliminary karyotyping shows normal 46,XX karyotype - Final results will be appended to this report b. 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 While the definitive cell of origin for these mutations cannot be determined with certainty, U2AF1 mutations are rare in breast carcinoma but are frequently seen in myeloid neoplasms. TP53 mutations are non-specific and seen in many types of cancer, including both breast carcinoma and myeloid neoplasms. 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 The patient currently does not have cytopenias or cytoses to support specific classification at this time. Ongoing clinical follow-up is recommended. If this patient develops unexplained cytopenias or cytoses, further evaluation with a repeat bone marrow biopsy would be recommended. Dr. Pierre called and left a message to discuss NGS results with Dr. Finn on 03/04/2024. Original comment: The marrow biopsy is notable for focal involvement by carcinoma, within immunophenotype consistent with breast origin. In addition, the marrow is notably hypercellular for patient age with some increased granulopoiesis and megakaryopoiesis with mild megakaryocyte atypia. Given the presence of metastatic carcinoma, this increased myelopoiesis may potentially be reactive. However, cytogenetics and NGS have been requested to help exclude the potential of an underlying myeloid neoplasm, and results will be incorporated into an amended final report when available. Dr. Pierre discussed results of this case with Dr. Vasquez via phone call on 02/25/2024. Select slides seen in consultation with Dr. Lynch. Dr. Carter interpreted the NH/ER/HER2 slides. 03/19/2024 10:30 AM [facility]-C ENTRAL LABORATORY Clinical Information Ms. Funes is a 78 y.o. with a history of left breast cancer in 2003 (status-post mastectomy and radiation) and a recent MRI of thoracic and lumbar spine on 02/02/24 showing diffuse irregular appearance to the marrow. A bone marrow biopsy is performed for further evaluation. 03/19/2024 10:30 AM [facility]- ENTRAL LABORATORY PROCEDURE A RIGHT lateral bone marrow biopsy and unilateral aspiration procedure is performed at [facility] on 02/24/24. ABIGAIL Wan performed the procedure using an 8 gauge manual needle. The ordering physician is Dr. Lionel Vasquez. The specimen is inked orange. TLF 02/24/2024 The bone core biopsy specimen was removed from the patient at 0818 on 02/24/24 and placed in fixed in B+ at 0828. It was fixed in B+ for 2 hours, followed by decalcification in STAT Decal for 2 hours (In 1604; Out 1804). The biopsy was placed in 10% neutral buffered formalin at 1804 on 02/24/2024 and was fixed in formalin for a minimum of 6 hours and not longer than 72 hours. The clot section specimen was removed from the patient 0820 on 02/24/24 and fixed in B+ at 0828 on 02/24/2024. It was fixed for 2 hours in B+, then placed in 10% neutral buffered formalin at 1804 on 02/24/2024 and was fixed in formalin for a minimum of 6 hours and not longer than 72 hours. 03/19/2024 10:30 AM [facility] LABORATORY-C ENTRAL LABORATORY CBC and Differential HEMATOLOGY PARAMETERS Tested at: [facility] Peripheral Blood: RESULTS EXPECTED VALUES WBC: 6.21 4.5-73y5638/cumm RBC: 5.38 4.00-5.20 mil/cumm ELEVATED HGB: 16.2 12-16 gm/dl ELEVATED HCT: 49.9 33-51% MCV: 92.8 80-100 fl NORMOCYTIC MCH: 30.1 26-34 pg MCHC: 32.5 32-36 gm/dl NORMOCHROMIC RDW: 14.3 11.5-15.5% PLT: 359 [id number] Retic: 1.32 0.5-1.5% Differential Tested at: Central Absolute (%) Expected (%) (x10*9/L) (x10*9/L) Neutrophils: 4.81 (77.4) 1.7-7.0 (42-72%) Lymphocytes: 0.83 (13.4) 0.9-2.9 (20-44%) DECREASED Monocytes: 0.44 (7.1) <0.9 (0-11%) Eosinophils: 0.00 (0) <0.5 (0-2%) Basophils: 0.03 (0.5) <0.3 (<3.0%) Imm Grans: 0.10 (1.6) <0.3 (0-3%) (Metas, Myelos,Pros) 03/19/2024 10:30 AM LINUX SERVER ADMINISTRATOR [facility] LABORATORY-C ENTRAL LABORATORY Bone Marrow Differential Blasts: 1.4 0.2-1.5% Neutrophils & precursors: 71.1 58.0-65.0% ELEVATED Eosinophils & precursors: 0.7 0.2-5.3% DECREASED Basophils & precursors: 0.0 0.0-1.0% Erythroid precursors: 11.6 18.0-24.0% DECREASED Lymphocytes: 8.7 3.0-24.0% Monocytes: 6.5 0.7-2.8% ELEVATED Plasma cells: 0.4 0.1-1.5% M:E Ratio: 71 : 12 03/19/2024 10:30 AM LINUX SERVER ADMINISTRATOR [facility] LABORATORY-C ENTRAL LABORATORY Microscopic Description SPECIMENS EXAMINED: Peripheral blood Aspirate direct and concentrate smears: Adequate Particle crush smears Touch imprints Clot section Bone core trephine sample (decalcified): Partially subcortical but adequate, 0.8 cm Bone core and clot section color: orange PERIPHERAL BLOOD: No distinct morphologic abnormalities. BONE MARROW ASPIRATE: Hematopoiesis: Trilineage hematopoiesis is present. Granulocytes show full-spectrum maturation without significant dyspoiesis. Rare erythroids show atypical nuclear budding (less than 10%). Megakaryocytes show a range of morphologies without occasional atypical forms. Lymphocytes: Not increased Plasma cells: Normal Other cells: The touch imprints show rare clusters of cohesive cells with basophilic cytoplasm. BONE MARROW CORE AND CLOT SECTION: Hematopoiesis: The marrow is hypercellular for patient age with trilineage hematopoiesis and somewhat increased myelopoiesis. Lymphocytes: Focal lymphoid aggregates composed predominantly of small lymphocytes are present (interstitial and paratrabecular), favor reactive Plasma cells: Normal Other cells: Focal collections of coherent, atypical cells are noted. Occasional osteoclast-like giant cells also are present. IRON STAINS (performed on clot sections, particle crush smears, concentrate smears, and F-PV slides): Storage iron, sideroblastic iron and ring sideroblasts evaluated; results included in diagnosis. This assay has not been validated on decalcified tissues. Results should be interpreted with caution given the possibility of false negativity on decalcified specimens. 03/19/2024 10:30 AM [facility] Flow Cytometry Summary T & B Cell Screen panel: Interpretation: No monotypic B or T lymphocytes are detected. Clinical indication for flow cytometry: To evaluate for light chain restriction among B cells, and abnormal immunophenotype among T cells. Percent of Lymphs B cells (CD19+): 16.2% T cells (CD3+): 77.7% NK cells (CD3-/CD56+): 1.4% CD3+/CD4+: 52.6% CD3+/CD8+: 23.2% CD4:CD8 ratio: 2.3 CD19+/[place]: 7.3% CD19+/Lambda: 3.7% [place]:Lambda ratio: 2.0 B and T lymphocytes in this analysis demonstrate normal qualitative expression of the following antigens: CD2, CD3, CD4, CD5, CD7, CD8, CD10, CD19, CD20, CD45, CD56, [place] and Lambda surface light chains, TCR gamma delta, and TRBC1. Quality Assessment Viability (7-AAD): 77% Polytypic B cell events: 187 Polytypic T cell events: 875 Nucleated cells analyzed: 40721 Limit of detection (LOD): 0.4% These results and cytograms have been verified by Dr. Pierre. This test was developed and its performance characteristics verified by [employer]. It has not been cleared or approved by the [place] Food and Drug Administration. This test is used for clinical purposes and should not be regarded as investigational or for research. Immunostains may have been used on this case in conjunction with flow cytometry in order to address ambiguous or inconclusive findings and/or to provide prognostic information. In the event immunostains were performed, results of both modalities were coordinated with H&E findings during diagnostic evaluation. Analytic Flow Tech: Xenia Noel, 02/26/2024 9:25 AM Verifying Flow Tech: Trey Cherry, 02/26/2024 12:33 PM 03/19/2024 10:30 AM [facility] cortical.io [facility] Cytogenetics Summary Cytogenetic testing has been ordered and will be reported separately. 03/19/2024 10:30 AM [facility] Everyclick [facility] Other Testing Immunostains were performed on the bone core biopsy. CD3 (T cell marker): stains an increased number of T cells forming aggregates, predominantly associated with areas of carcinoma cells CD20 (B cell marker): stains an increased number of small B cells forming aggregates, predominantly associated with areas of carcinoma cells CD138 (plasma cell marker): stains scattered plasma cells and shows weaker staining in areas of carcinoma cells CD34 (blast marker) (by manual morphometry): 1-2% CD117 (mast cell and early myeloid marker): stains rare scattered cells CD61: stains a somewhat increased number of megakaryocytes including occasional atypical and small forms Cytokeratin cocktail: positive in abnormal cohesive cell clusters GATA3: positive in abnormal cohesive cell clusters ER: positive in abnormal cohesive cell clusters Mammoglobin: equivocal; some staining in portion of carcinoma cells Breast carcinoma panel (ER expression, NH expression, and HER2 IHC) has been requested; results will be included in an amendment/addendum A reticulin stain demonstrates no significant interstitial fibrosis (MF-0 of 3). 03/19/2024 10:30 AM [facility] SYNOPTIC REPORTING Breast Biomarker Reporting Template BREAST BIOMARKER REPORTING TEMPLATE - C Protocol posted: 03/05/2023 Test(s) Performed: Estrogen Receptor (ER) Status: Positive (greater than 10% of cells demonstrate nuclear positivity) Percentage of Cells with Nuclear Positivity: 98 % Average Intensity of Staining: Moderate Test Type: Laboratory-develop ed test Primary Antibody: SP1 Test(s) Performed: Progesterone Receptor (PgR) Status: Positive Percentage of Cells with Nuclear Positivity: 86 % Average Intensity of Staining: Weak Test Type: Laboratory-develop ed test Primary Antibody: 16 Test(s) Performed: HER2 by Immunohistochemist ry: Negative (Score 1+) Test Type: Laboratory-develop ed test Primary Antibody: 4B5 Cold Ischemia and Fixation Times: Cannot be determined: Not documented Testing Performed on Block Number(s): C1 METHODS Fixative: Formalin Image Analysis: Performed Method: Aperio morphometric analysis Biomarkers Scored by Image Analysis: ER Biomarkers Scored by Image Analysis: PgR 03/19/2024 10:30 AM LINUX SERVER ADMINISTRATOR [facility] Additional Information Patients with breast cancers that are HER2 IHC 3+ or IHC 2+/CATERINA amplified may be eligible for several therapies that disrupt HER2 signaling pathways. Invasive breast cancers that test 'HER2-negative' (IHC 0, 1+ or 2+/CATERINA not-amplified) are more specifically considered 'HER2-negative for protein overexpression/gen e amplification' since non-overexpressed levels of the HER2 protein may be present in these cases. Patients with breast cancers that are HER2 IHC 1+ or IHC 2+/CATERINA not amplified may be eligible for a treatment that targets non-amplified/non- overexpressed levels of HER2 expression for cytotoxic drug delivery (IHC 0 results do not result in eligibility currently). Interpreted at [facility], Central Laboratory - [address] [address] Immunohistochemist ry controls were reviewed and approved by the pathologist during this examination. 03/19/2024 10:30 AM LINUX SERVER ADMINISTRATOR [facility] Bone Marrow (Bone Marrow Aspirate) 02/24/2024 8:18 AM LINUX SERVER ADMINISTRATOR 02/24/2024 3:04 PM LINUX SERVER ADMINISTRATOR Bone marrow specimen (specimen) (Bone Marrow Aspirate (Heparinized)) 02/24/2024 8:18 AM LINUX SERVER ADMINISTRATOR 02/24/2024 3:04 PM LINUX SERVER ADMINISTRATOR Bone marrow specimen (specimen) (Bone Marrow Core Biopsy) 02/24/2024 8:18 AM LINUX SERVER ADMINISTRATOR 02/24/2024 3:04 PM LINUX SERVER ADMINISTRATOR Bone marrow specimen (specimen) (Peripheral Blood) 02/24/2024 8:18 AM LINUX SERVER ADMINISTRATOR 02/24/2024 3:04 PM LINUX SERVER ADMINISTRATOR Lionel Vasquez MD LABORATORY Edited Result - Final Performing Organization Address [facility]/ZIP Co de Phone Number [facility] [address] [place] [id number], [place] * LAB TRACKING EVENT (02/24/2024 7:14 AM LINUX SERVER ADMINISTRATOR) Other (Other) Client Collect / Unknown 02/24/2024 7:14 AM LINUX SERVER ADMINISTRATOR 02/24/2024 2:20 PM LINUX SERVER ADMINISTRATOR Lionel Vasquez MD LAB BILL ONLY Final Result Performing Organization Address [facility] Co de Phone Number [facility] [address] [place] [phone], [place] * (ABNORMAL) XR DXA BONE DENSITY 2 SITES (04/08/2013 9:46 AM LINUX SERVER ADMINISTRATOR) Anatomical Region Laterality Modality Spine, HIPS, HIPL, HIPR Other Narrative 04/23/2013 10:50 AM LINUX SERVER ADMINISTRATOR Please see scanned document for results of this study. Procedure Note Jannette Cardona PA - 04/23/2013 Please see scanned document for results of this study. 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 Healthcare Directive 09/01/2005 * Full Code (Latest Code Status on File) Date Activated Date Inactivated Comments 07/10/2006 2:14 PM 07/10/2006 10:42 PM * Full Code Date Activated Date Inactivated Comments 03/27/2006 7:15 AM 03/27/2006 12:56 PM * Full Code Date Activated Date Inactivated Comments 08/27/2005 6:28 AM 08/30/2005 4:46 PM Care Teams Railroad Operating Engineer Relationship Specialty Start Date End Date [employer], [facility] [address] [place] [address] PCP - General 10/14/13 Kosta Mercado [address] [place] [address] Ophthalmology Computer Help Desk Specialist 01/13/13
--- OUTSIDE RECORDS SUMMARY | 2024-03-26 07:32 | XMS_ITS | Continuity of Care Document ---
Author Name NwHIN User [email or web address] llowed Address Unknown Organization Unknown Address Unknown Procedures FILTER APPLIED:Only known Procedures with Onset Date within the last 5 years Procedure Date Procedure Provider Montse moya Information Status GLUCOSE METER (73873) Co mpleted BREAST TOMOSYNTHESIS BI (82052) Completed SCR MAMMO BI INCL CAD (31241) Completed VITAMIN D 25 HYDROXY (06810) Completed LIPID PANEL (90837) Comp leted EMERGENCY DEPT VISIT MOD MDM (47023) Completed RPR F/E/E/N/L/M 2.5 CM/< (86576) Completed CT NECK SPINE W/O DYE (93063) Completed CT MAXILLOFACIAL W/O DYE (17043) Completed CT HEAD/BRAIN W/O DYE (90402) Completed EMERGENCY DEPT VISIT LOW MDM (12013) Completed Encounters FILTER APPLIED:Only known Encounters with Admission Date within the last 5 years Encounter Location Admission Discharge Billing Code 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
--- OUTSIDE RECORDS SUMMARY | 2024-03-26 07:32 | XMS_ITS | Referral Summary ---
Author Organization [facility] Address [address] [place] [address] Care Team Providers Care Night Stocker Name Role Phone Elsewhere, Pcp Primary Care Provider Unavailabl e Source Comments Patient records contain information from all sites at [facility]. For routine questions regarding patient records, call [phone] during business hours, M-F 8:00 AM - 5:00 PM Central Time. Record requests for emergency care only can be directed to [phone] at any time.[facility] Encounters Date Type Department Care Team Description 03/09/2024 9:47 AM GREY ROLL WORKER - 03/09/2024 11:46 AM [facility] Hospital Encounter Department of Radiation Oncology in [place], [place] [address] [place] [phone] Angie Jacob M.D. 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 Swallow whole with a drink of water. Active Active Problems Problem Noted Date Diagnosed Date Secondary Malignant Neoplasm Bone 03/09/2024 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 024 Social History Tobacco Use Types Packs/Day Years Used Date Smoking Tobacco: Never Smokeless Tobacco: Never Tobacco Cessation:Counseling Given: Not Answered Alcohol Use Standard Drinks/Week Comments Yes 2 (1 standard drink = 0.6 oz pur e alcohol) [facility] CS Discoities Answer Date Recorded In the past 12 months has [employer], oil, or water [employer] threatened to shut off services in your [...] How often do you attend chur or jain services? More than 4 times per year 07/18/2022 Do you belong to any clubs o r organizations such as worship groups, unions, fraternal or athletic groups, or [...] and heating? Not hard at all 07/18/2022 [facility] - Occupational [...] Comments Blood Pressure 132/63 03/09/2024 9:58 AM GREY ROLL WORKER Pulse 84 03/09/2024 9:58 AM GREY ROLL WORKER Temperature 36.7 C (98 F) 03/09/2024 9:58 AM GREY ROLL WORKER Respiratory Rate - - Oxygen Saturation - - Inhaled Oxygen Concentration - - Weight 76.3 kg (168 lb 3.4 oz) 03/09/2024 9:58 A M GREY ROLL WORKER Height 172.9 cm (5' 8.07) 07/23/2022 2:24 PM CD T Body Mass Index 25.52 07/23/2022 2:24 PM CDT Plan of Treatment Not on file Medical Devices Implanted Type Area Mission Worker Device Identifier Shelf Expiration Date Model / Serial / Lot Ankle Implant Ankle Implant Right: Ankle Description:Broke lower leg/ ankle and may or may not have hardware. Procedures Procedure Name Priority Date/Time Associated Diagnosis Comments OUTSIDE DX SKELETAL Routine 03/09/2024 1 2:20 PM GREY ROLL WORKER OUTSIDE DX SKELETAL Routine 03/09/2024 1 2:15 PM GREY ROLL WORKER OUTSIDE DX SKELETAL Routine 03/09/2024 1 2:10 PM GREY ROLL WORKER OUTSIDE MR NEURO Routine 03/04/2024 2:55 PM GREY ROLL WORKER OUTSIDE MR NEURO Routine 03/04/2024 2:50 PM GREY ROLL WORKER OUTSIDE NM PET Routine 03/01/2024 12:00 AM GREY ROLL WORKER OUTSIDE MR NEURO Routine 02/02/2024 1:20 PM GREY ROLL WORKER OUTSIDE MR NEURO Routine 02/02/2024 1:15 PM GREY ROLL WORKER OUTSIDE MG MAMMOGRAM Routine 07/29/2023 3:20 PM CDT from Last 3 Months or Most Recently Relevant to Health Maintenance Results * XR femur RT 2V-Outside Skeletal Xray (03/09/2024 12:20 PM GREY ROLL WORKER) Only the most recent of3 resultswithin the time period is included. 03/09/2024 12:1 1 PM GREY ROLL WORKER Narrative [facility] - 03/09/2024 2:11 PM GREY ROLL WORKER This order has been created and auto-finalized to support the import of outside images. If available, original interpretation can be found on the Media Tab in Chart Review, in Document Viewer, as an image in QREADS or as an Addendum. If a re-interpretation or overread is required please follow defined workflow. us Provider Not In System IMG DIAGNOSTIC IMAGING IN OCEDURES Final Result [facility] NA * MR head/brain wo/w con-Outside MR Neuro (03/04/2024 2:55 PM GREY ROLL WORKER) Only the most recent of4 resultswithin the time period is included. Narrative [facility] - 03/08/2024 1:21 PM GREY ROLL WORKER This order has been created and auto-finalized to support the import of outside images. If available, original interpretation can be found on the Media Tab in Chart Review, in Document Viewer, as an image in QREADS or as an Addendum. If a re-interpretation or overread is required please follow defined workflow. us Provider Not In System IMG MRI PROCEDURES Final Result Performing Organization Address [facility] de Phone Number [facility] NA * PET CT SKULL BASE TO MID THIGH INITIAL TREAT-Outside NM Pet (03/01/2024 12:00 AM GREY ROLL WORKER) Narrative [facility] - 03/08/2024 3:59 PM GREY ROLL WORKER This order has been created and auto-finalized [...] PROCEDURES Final R esult Performing Organization Address [facility] de Phone Number [facility] NA * MM screening mammo unilat RT-Outside Mammogram (07/29/2023 3:20 PM CDT) Narrative [facility] - 03/08/2024 1:20 PM GREY ROLL WORKER This order has been created and auto-finalized to support the import of outside images. If available, original interpretation can be found on the Media Tab in Chart Review, in Document Viewer, as an image in QREADS or as an Addendum. If a re-interpretation or overread is required please follow defined workflow. us Provider Not In System IMG BI PROCEDURES Final R esult Performing Organization Address [facility] de Phone Number [facility] NA from Last 3 Months or Most Recently Relevant to Health Maintenance Insurance [facility] Care Teams Night Stocker Relationship Specialty Start Date End Date Elsewhere, Pcp PCP - General Internal Medicine 07/18/22
--- OUTSIDE RECORDS SUMMARY | 2024-03-26 07:32 | XMS_ITS ---
Author Organization [facility] Address [address] [place] [address] Care Team Providers Care Ep Technologist Name Role Phone Unavailable Unavailable Unavailable Surgery Details Not on file Complications Check Surgery Details section. Procedure Estimated Blood Loss Check Surgery Details section. Procedure Findings Check Surgery Details section. Procedure Specimens Taken Check Surgery Details section.
--- OUTSIDE RECORDS SUMMARY | 2024-03-26 07:32 | XMS_ITS | Encounter Summary ---
Author Organization [facility] Address [address] [place] [address] Care Team Providers Care Director Paid Media Name Role Phone Elsewhere, Pcp Primary Care Provider Unavailabl e Reason for Visit * Appointment Request (Routine) - Closed Specialty Diagnoses / Procedures Referred By Indy kuhn Referred To Contact Radiation Oncology Diagnoses Insufficiency Cerebrovascular Neha Finn M.D. [address] [place] [address] Phone: tel: fax: Referral ID Status Reason Start Date Expiration Date Visits Re quested Visits Authorized [id number] Closed 03/08/2024 03/08/2025 1 1 Encounter Details Date Type Department Care Team (Latest Contact Info) Description 03/09/2024 9:47 AM [facility] - 03/09/2024 11:46 AM [facility] Hospital Encounter Department of Radiation Oncology in [place], [place] [address] [place] [phone] Angie Jacob M.D. [address] [place] [address] 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 (HCC) (Primary Dx); Secondary Malignant Neoplasm Bone (HCC) Social History Tobacco Use Types Packs/Day Years Used Date Smoking Tobacco: Never Smokeless Tobacco: Never Alcohol Use Standard Drinks/Week Comments Yes 2 (1 standard drink = 0.6 oz pur e alcohol) [facility] Utilities Answer Date Recorded In the past 12 months has e electric, gas, oil, or water company threatened to shut off services in your [...] week 07/18/2022 How often do you attend formerly [facility] or anglican services? More than 4 times per year 07/18/2022 Do you belong to any clubs o r organizations such as orthodox groups, unions, fraternal or athletic groups, or [...] and heating? Not hard at all 07/18/2022 [facility] - Occupational Stress [...] PM CDT documented as of this encounter Last Filed Vital Signs Vital Sign Reading Time Taken Comments Blood Pressure 132/63 03/09/2024 9:58 AM TRANSIT PLANNING DIRECTOR Pulse 84 03/09/2024 9:58 AM TRANSIT PLANNING DIRECTOR Temperature 36.7 C (98 F) 03/09/2024 9:58 AM TRANSIT PLANNING DIRECTOR Respiratory Rate - - Oxygen Saturation - - Inhaled Oxygen Concentration - - Weight 76.3 kg (168 lb 3.4 oz) 03/09/2024 9:58 A M TRANSIT PLANNING DIRECTOR Height - - Body Mass Index 25.52 07/23/2022 2:24 PM CDT documented in this encounter Medications at Time of Discharge alendronate (FOSAMAX) 35 mg tablet Take 35 mg by mouth once a week. 05/02/2022 anastrozole (Arimidex) 1 mg tablet Take 1 mg by mouth daily. Swallow whole with a drink of water. aspirin [address] tablet Take 81 mg by mouth daily. fluticasone propionate (FLONASE) 50 mcg/actuation nasal spray Administer 1 spray into each nostril daily. 05/10/2022 metoprolol tartrate (LOPRESSOR) 25 mg tablet Take 25 mg by mouth 2 (two) times a day. 07/03/2022 simvastatin (ZOCOR) 20 mg tablet Take 20 mg by mouth at bedtime. 07/03/2022 venlafaxine XR (EFFEXOR-XR) 37.5 mg 24 hr capsule Take by mouth daily. 07/03/2022 azelastine (ASTEPRO) 205.5 mcg/spray (0.15 %) nasal spray Administer 2 sprays into each nostril 2 (two) times a day. 30 mL 11 07/25/2022 fluticasone propionate (FLONASE) 50 mcg/actuation nasal spray SHAKE LIQUID AND USE 2 SPRAYS IN EACH NOSTRIL DAILY 48 g 3 07/26/2022 documented as of this encounter Consult Notes * Maritza Syed P.A.-Helio., M.S. - 03/09/2024 10:00 AM CST SUBJECTIVE REQUESTING PROVIDER Neha Finn M.D. CHIEF COMPLAINT/REASON FOR CONSULT 1. 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 (HCC) 2. Secondary Malignant Neoplasm Bone (HCC) SUPERVISED BY: Angie Jacob M.D. HISTORY OF PRESENT ILLNESS Ms. Yasmeen Funes is a 78-year-old female with metastatic breast cancer, who presents today for an opinion regarding the role of radiation therapy in the management of the patient's disease. Her oncologic history is as follows: Oncology History 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 (HCC) 06/07/2003 Critical Imaging Mammograms and/or breast ultrasound were reviewed from [facility], 06/07/03. The lesion is an irregular hypoechoic mass which is palpable in the 3 o'clock position of the left breast, 1-cm from the nipple. This measures 16 x 10 x 15-mm. It is very superficial. Based on the imaging findings,the suspicion for malignancy is high. 06/14/2003 Biopsy/Pathology Ultrasound-guided core needle biopsy of the left breast. 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 This is a [place] Grade 2. There was no associated ductal carcinoma in situ. 06/27/2003 Surgery and Procedures Left mastectomy and immediate left axillary node sampling procedure was performed. ER+, UT+, HER2 - by FISH. Axillary lymph nodes were positive for metastatic disease. 2003 - Chemotherapy Adjuvant chemotherapy with Adriamycin/Cytoxan x 4 cycles followed by Taxol x 4 cycles. 2003 - 11/2008 Biological/Targeted/Hormone Therapy Adjuvant Arimidex. 08/27/2005 Surgery and Procedures PROCEDURE 1. Left delayed first-stage breast reconstruction with latissimus myocutaneous flap and underlying expandable implant filled to 525 cc. 2. Revision 3 cm Hypertrophic Right subclavian portacath scar. SURGEON: LADONNA JARAMILLO 03/27/2006 Surgery and Procedures PROCEDURE 1. Left second stage breast reconstruction with Chestnut smooth 600-cc moderate plus profile gel implants. 2. Left internal Solomon procedure for creation of inframammary folds. 07/10/2006 Surgery and Procedures OPERATIVE PROCEDURES 1. Left nipple reconstruction with modified star flap. 07/2023 Other The patient started experiencing low back pain. She also endorses a 20 pound weight loss. 02/02/2024 Critical Imaging MR Lumbar Spine IMPRESSION: 1. Diffuse irregular appearance to the marrow. Given history of malignancy, findings are compatiblewith osseous metastatic disease until proven otherwise with no comparison study available. 2. Mild degenerative changes with no lumbar fracture appreciated. MR Thoracic Spine IMPRESSION: 1. Diffuse irregular appearance to the marrow. Given history of malignancy, findings are compatiblewith osseous metastatic disease until proven otherwise with no comparison study available. 2. Irregular endplate deformities at T6, T7, and T11, suspicious for fractures, possibly pathologic, though the overall appearance more suggestive of a chronic process rather than acute fracture. 3. Mild degenerative changes with no high-grade central or foraminal stenosis appreciated. 02/24/2024 Biopsy/Pathology BONE MARROW AND PERIPHERAL BLOOD: 1. Positive [...] mutations; see attached report 6. See comment Amended comment after NGS results: NGS demonstrated [...] and the morphologic changes (hypercellularity and megakaryocyte proliferation/atypia), the findings are overall suspicious for a potentially evolving myeloid neoplasm. The patient currently does not have cytopenias or cytoses to support specific classification at this time. Ongoing clinical follow-up is recommended. If this patient develops unexplained cytopenias or cytoses, further evaluation with a repeat bone marrow biopsy would be recommended. Chromosome Analysis: Negative for a clonal chromosome abnormality. See comments. 03/01/2024 Critical Imaging PET-CT IMPRESSION: Diffuse osseous metastatic disease. Note that metastatic disease within bilateral femoral necks increases patient risk for pathologic fracture. 03/04/2024 Critical Imaging MR Brain IMPRESSION: 1. New widespread osseous metastases of the calvarium, skull base, and visualized upper cervical spine. 2. There is a enhancing extra-axial mass adjacent to the right frontal lobe which may represent intracranial extension of osseous metastasis or meningioma. No edema in the immediately adjacent brain parenchyma. 3. No acute intracranial abnormality. 4. Mild generalized cerebral volume loss. Chronic deep white matter small vessel ischemic changes. MR Cervical Spine IMPRESSION: 1. Normal alignment. No fractures. 2. New widespread osseous metastases throughout the cervical and thoracic spine. 3. No pathologic fractures. No tumor extending into the epidural space. 4. Normal cord signal. 5. Cervical spondylosis. 6. Moderate to severe narrowing of the right neural foramina at C3-4 and C4-5. 7. Moderate narrowing of the bilateral neural foramina at C5-6. 03/08/2024 Other Medical Oncology consultation with Dr. Finn. Referral to Radiation Oncology to discuss palliativeradiation therapy. Order placed for Arimidex 1 mg oral daily. Plan to start abemaciclib after the conclusion of radiation. 03/09/2024 - Biological/Targeted/Hormone Therapy Arimidex initiated. INTERVAL HISTORY: The patient was seen and examined today with Dr. Jacob. The patient reports doing well overall. She reports increased fatigue. She commented on recent decreased activity due to the weather. She reports developing low back and right-sided posterior hip pain in July 2023. She also had right-sided muscle knots in her low back at that time. Her back and muscle pain has resolved, but she has persistent right-sided posterior hip pain. She reports experiencing pain in the right hip with standing. She can stand for approximately 5 minutes before needing to sit due to the pain. She rates the pain as severe as 8/10. The pain resolves with sitting. She reports sleeping well, but she can experience some discomfort of the right hip if she rolls onto that side. She is taking Tylenol ES two tablets three times per day with benefit. She denies radiation of pain or numbness, tingling, or weakness of the legs. She denies other areas of bone pain. She denies seizures, headaches, vision or hearing changes, nausea or vomiting, focal numbness, tingling, or weakness, or bowel or bladder incontinence. She does have diarrhea that is managed with taking Imodium. She reports good nutritional intake, but she did comment that food doesn't taste or smell good. She denies dizziness or lightheadedness. She reports that she initiated Arimidex this morning. The patient denies a history of prior radiation therapy, connective tissue disorders, or inflammatory bowel disease. Her ECOG performance status is 1. REVIEW OF SYSTEMS Review of systems was negative except as documented above. MEDICAL HISTORY Past Medical History: Diagnosis Date Amaurosis Fugax Anxiety Apnea Sleep Obstructive Cerebrovascular Disease 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 (HCC) Osteopenia SURGICAL HISTORY Past Surgical History: Procedure Laterality Date ANKLE SURGERY BREAST RECONSTRUCTION Left CATARACT EXTRACTION Bilateral CHOLECYSTECTOMY MASTECTOMY Left FAMILY HISTORY Family History Problem Relation Name Age of Onset Bladder cancer Father Cancer Father Jaw Leukemia Paternal Grandmother Colon cancer Aunt Colon cancer Aunt SOCIAL HISTORY Social History Socioeconomic History Marital status: Number of children: 3 Highest education level: Bachelor's degree (e.g., BA, AB, BS) Tobacco Use Smoking status: Never Smokeless tobacco: Never Vaping Use Vaping status: never used Substance and Sexual Activity Alcohol use: Yes Alcohol/week: 2.0 - 3.0 standard drinks of alcohol Types: 2 - 3 Standard drinks or equivalent per week Social History Narrative She lives independently. She is retired. She has 3 children and 6 grandchildren. OBJECTIVE BP 132/63 (BP Location: Right arm, Patient Position: Sitting, Cuff Size: Regular) Pulse 84 Temp36.7 ??C (Temporal) Wt 76.3 kg BMI 25.52 kg/m?? PHYSICAL EXAMINATION General: Patient is alert and oriented in no apparent distress. The patient is here today with her daughter, Sasha. Lungs: Clear to auscultation bilaterally. Heart: Regular rate and rhythm. Neuro: CN II-XII grossly intact. Sensation to light touch intact. Strength is 5/5 in the upper and lower extremities. Ldhlfh-tz-amyd, ukjz-pl-haob, and rapid alternating movements are normal. Patientis able to spell the word WORLD backwards. Musculoskeletal: Spine, hips, femurs are non-tender to palpation bilaterally. ASSESSMENT / PLAN #1 Left breast infiltrating ductal carcinoma, ER+, UT+, HER2-, diagnosed in 2003 s/p left mastectomy and lymph node dissection followed by adjuvant chemotherapy with Adriamycin/Cytoxan and adjuvant endocrine therapy x 5 years #2 Metastatic breast cancer, biopsy proven, bone predominantly osseous disease, diagnosed in February 2024 #3 Arimidex initiated on March 09, 2024 I had a detailed discussion with the patient and her daughter regarding her metastatic breast cancer diagnosis. We reviewed her oncologic history as detailed above. We discussed treatment options including starting systemic therapy and monitoring her right hip pain versus palliative radiation therapy. We discussed the risks, benefits, and alternatives of radiotherapy in this setting. We discussedthat if palliative radiation therapy is recommended that it is typically delivered in 1, 5, or 10 fractions. We also reviewed that Dr. Jacob favored continued monitoring of the asymptomatic brain/skull lesion at this time. I discussed the logistics as well as the acute and chronic side effects of treatment to the right hip in detail. The acute side effects are common and include, but are not limited to, fatigue, pain flare, radiation dermatitis, and possible increased frequency and/or urgency of bowel movements and/or urination. Long-term side effects could include, but are not limited to, bone fracture/arthritis and nerve damage. Her questions were answered to her verbalized satisfaction. We also discussed that the patient has osseous metastatic disease in the bilateral femurs as demonstrated on her PET-CT scan. We recommended obtaining x- rays for evaluation of the bones and fracture risk and orders were placed for the imaging to be done at [facility]. The patient reports that she is taking Fosamax. Dr. Jacob also met with the patient today, please see her attestation for details. After discussion, it was decided to not proceed with radiation therapy at this time. The patient will initiate systemic therapy under the care of Dr. Finn. We will defer imaging ordering and monitoring to Dr. Finn. We discussed indications for palliative radiation therapy in the future. We will not order for areturn visit to be scheduled here at this time, but the patient can be referred back to us if needed in the future. The patient was provided with our contact information. She will contact us with questions or concerns. She verbally expressed her understanding of the plan. EDUCATION: Ready to learn, no apparent learning barriers were identified; learning preferences include listening. Explained diagnosis and treatment plan; patient expressed understanding of the content. PRIMARY PROVIDER Dr. Lionel Vasquez I personally spent 50 minutes in care of the patient today. Time includes both non face to face andface to face patient care. Signed by: Maritza Syed P.A.-C. MMartinaSMartina 03/09/2024 11:26 AM TRANSIT PLANNING DIRECTOR [facility] [address] [place] [id number] Cosigned by Angie Jacob M.D. at 03/09/2024 11:46 AM TRANSIT PLANNING DIRECTOR SIT PLANNING DIRECTOR SIT PLANNING DIRECTOR Associated attestation - Angie Jacob M.D. - 03/09/2024 11:46 AM TRANSIT PLANNING DIRECTOR RADIATION ONCOLOGY CONSULT I saw and evaluated the patient and participated in the [place] portions of the service. I reviewed thedocumentation of Ms. Maritza Syed PA-C, and agree with the findings and plan. Please see Ms. Syed's detailed note for the patient's initial presentation and work-up. Briefly, Ms. uFnes is a very pleasant 78 year old female with newly diagnosed metastatic breast cancer to the bones who presents to discuss palliative radiation therapy options. She was initially diagnosed in in 2003 and underwent left mastectomy followed by chemotherapy and endocrine therapy with no prior radiation therapy. She then presented with back pain which prompted her work-up as noted below. I have reviewed her imaging, operative and pathology reports. She reports that her pain is tolerable on her right upper posterior pelvic area. She states that if she sits downs or rests that it goes away and does not wake her up at night. She has no neurologic symptoms. On exam, she appears well. She points to her posterior superior iliac spine on her right posterior upper pelvis where she has pain when she stands. We discussed the findings above and below in this note with the patient and her daughter. We reviewed her PET/CT and recent brain MRI images together. We discussed her treatment alternatives including watching her right hip pain while she starts systemic therapy vs palliative radiation therapy. Shewas in favor of starting her systemic therapy first as she feels the pain is tolerable and rarely wakes her up at night. She has a trip planned in May 2024 and if her pain isn't better by then she or Dr. Finn could contact me again. We will obtain some baseline x-rays of her hips and femurs (although I don't see a lot of cortical destruction on her CT images from her PET/CT). This can serve as baseline imaging should she develophip/femur pain in the future. She is asymptomatic from the brain lesion and it has no edema; at this time I would favor watching this lesion with another MRI in 2 months. If it remains stable, we can continue to watch this area. If it progresses we could consider radiation to this area in the future. I will obtain her prior MRIs of the brain from 2020 or 2021 to compare. If the lesion is new, it is more likely that this is a metastasis than a meningioma. We discussed the rationale, risks, side effects and palliative goals of radiation therapy. We discussed the acute as well as termite treater helper risks, in general terms My thanks to Drs. Finn and Derek for the opportunity to participate in this patient's care. EDUCATION Ready to learn, no apparent learning barriers were identified; learning preferences include listening. Explained diagnosis and treatment plan; patient expressed understanding of the content. DIAGNOSIS #1 Left breast infiltrating ductal carcinoma, ER+, UT+, HER2-, diagnosed in 2003 s/p left mastectomy and lymph node dissection followed by adjuvant chemotherapy with Adriamycin/Cytoxan and adjuvant endocrine therapy x 5 years #2 Metastatic breast cancer, biopsy proven, bone predominantly osseous disease, diagnosed in February 2024 Signed by: Angie Jacob M.D. 03/09/2024 documented in this encounter Plan of Treatment Not on file documented as of this encounter Visit Diagnoses Diagnosis 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 (HCC)- Primary Secondary Malignant Neoplasm Bone (HCC) documented in this encounter Care Teams Director Paid Media Relationship Specialty Start Date End Date Elsewhere, Pcp PCP - General Internal Medicine 07/18/22 documented as of this encounter
--- OUTSIDE RECORDS SUMMARY | 2024-03-26 07:34 | XMS_ITS | Continuity of Care Document ---
Author Name Nw[facility]IN User [id number] llow[facility] Address Unknown Organization Unknown Address Unknown Procedures FILTER APPLIED:Only known Procedures with Onset Date within the last 5 years Procedure Date Procedure Provider Montse moya Information Status GLUCOSE METER (99894) Co mpleted BREAST TOMOSYNTHESIS BI (04891) Completed SCR MAMMO BI INCL CAD (55122) Completed VITAMIN D 25 HYDROXY (47899) Completed LIPID PANEL (16579) Comp leted EMERGENCY DEPT VISIT MOD MDM (59715) Completed RPR F/E/E/N/L/M 2.5 CM/< (88226) Completed CT NECK SPINE W/O DYE (40032) Completed CT MAXILLOFACIAL W/O DYE (44793) Completed CT HEAD/BRAIN W/O DYE (54642) Completed EMERGENCY DEPT VISIT LOW MDM (24160) Completed Encounters FILTER APPLIED:Only known Encounters with Admission Date within the last 5 years Encounter Location Admission Discharge Billing Code Business Account Executive Attender Outpatient [facility] Out[facility] Outpatient [facility] TRIPP TERAN
[2024-03-26 11:23] LABS: Basophils Absolute Auto 0.02 K/uL (0.00-0.30); Basophils Percent Auto 0.4 % (0.0-3.0); Hematocrit 40.4 % (33.0-51.0); Hemoglobin* 12.7 gm/dL (12.0-16.0); Immature Granulocytes Abs Auto 0.03 K/uL (0.00-0.30); Immature Granulocytes Pct Auto 0.6 %; Lymphocytes Absolute Auto 1.17 K/uL (0.90-2.90); Lymphocytes Percent Auto 24.5 % (20-44); Mean Corpuscular HGB Conc 31 gm/dL (32-36); Mean Corpuscular Hemoglobin 30 pg (26-34); Mean Corpuscular Volume 96 fL (80-100); Monocytes Percent Auto 5.7 % (0.0-11.0); Neutrophils Absolute Auto 3.28 K/uL (1.7-7.0); Neutrophils Percent Auto 68.8 % (42.0-72.0); Platelet Count* 240 K/uL (140-440); RDW Coefficient of Variation % 14.9 % (11.5-15.5); Red Blood Count 4.19 m/uL (4.00-5.20); White Blood Count* 4.77 K/uL (4.50-11.00)
[2024-03-26 11:23] LABS: Albumin* 4.2 g/dL (3.3-5.0)
[2024-03-26 11:24] LABS: Chloride* 109 mmol/L (96-114); Potassium* 4.3 mmol/L (3.6-5.1); Sodium* 142 mmol/L (135-149)
[2024-03-26 11:24] LABS: Slide Review Reflex No
[2024-03-26 11:26] LABS: Aspartate Amino Transferase* 42 U/L (12-35); Bilirubin Total* 0.5 mg/dL (0.1-1.5); Carbon Dioxide* 26 mmol/L (20-32); Creatinine* 0.5 mg/dL (0.5-1.5); Est. Creatinine Clearance* 46.54; Estimated Glomerular Filt Rate 97 ml/min
[2024-03-26 11:27] LABS: Alanine Aminotransferase* 31 U/L (4-35); Alkaline Phosphatase* 221 U/L (40-150); Anion Gap 7 mEq/L (7-15); Blood Urea Nitrogen* 17 mg/dL (7-30); Calcium* 8.9 mg/dL (8.4-10.6); Glucose* 97 mg/dL (60-115); Total Protein* 6.6 g/dL (6.0-8.3)
--- NOTE | 2024-03-26 13:53 | ONC.NURNOTE ---
Patient presents to clinic for labs and Verzenio teaching. She reports feeling improved appetite and decreased pain since starting the anastrozole. Patients Verzenio will arrive at her home on 03/31. She will plan to start taking it that evening. Side effects of treatment discussed at length including what to report to provider. Patient has a 3 month long history of diarrhea that she manages with Imodium. She currently takes 1 Imodium every 3 days. On the day she is due for another dose, she will have a morning of loose stools, 2-3 bouts. We discussed a low fiber diet, pushing fluids and how to increase her Imodium. Printed information was provided to patient on side effects and safe handling. Labs are within parameters to begin treatment and follow up appointments confirmed. Patient encouraged to call [facility] with questions or concerns.
--- NOTE | 2024-04-06 13:08 | ONC.NURNOTE ---
Call to patient to see how she is tolerating her Verzenio 150mg daily. Patient states she is doing fine. She is not having any side effects. She has chronic diarrhea and has increased her Imodium to one tablet every other day and this seems to be helping. She has a good appetite and continues to report improvement in her back pain. She is no longer needing Tylenol. Confirmed with patient plan for labs and follow up next week.
[2024-04-12 09:10] LABS: Basophils Percent Auto 0.2 % (0.0-3.0); Hematocrit 40.7 % (33.0-51.0); Hemoglobin* 12.8 gm/dL (12.0-16.0); Immature Granulocytes Pct Auto 0.5 %; Lymphocytes Percent Auto 23.7 % (20-44); Mean Corpuscular HGB Conc 31 gm/dL (32-36); Mean Corpuscular Hemoglobin 31 pg (26-34); Mean Corpuscular Volume 97 fL (80-100); Monocytes Percent Auto 4.9 % (0.0-11.0); Neutrophils Percent Auto 70.7 % (42.0-72.0); Platelet Count* 195 K/uL (140-440); RDW Coefficient of Variation % 15.3 % (11.5-15.5); Red Blood Count 4.19 m/uL (4.00-5.20); White Blood Count* 4.27 K/uL (4.50-11.00)
[2024-04-12 09:32] LABS: Albumin* 4.3 g/dL (3.3-5.0); Chloride* 106 mmol/L (96-114); Potassium* 4.5 mmol/L (3.6-5.1); Sodium* 141 mmol/L (135-149)
[2024-04-12 09:34] LABS: Bilirubin Total* 0.4 mg/dL (0.1-1.5); Creatinine* 0.8 mg/dL (0.5-1.5); Est. Creatinine Clearance* 46.54; Estimated Glomerular Filt Rate 76 ml/min
[2024-04-12 09:35] LABS: Alanine Aminotransferase* 18 U/L (4-35); Alkaline Phosphatase* 155 U/L (40-150); Anion Gap 9 mEq/L (7-15); Aspartate Amino Transferase* 22 U/L (12-35); Blood Urea Nitrogen* 20 mg/dL (7-30); Carbon Dioxide* 26 mmol/L (20-32); Glucose* 89 mg/dL (60-115); Lactate Dehydrogenase* 202 U/L (120-246); Total Protein* 6.7 g/dL (6.0-8.3)
[2024-04-12 09:36] LABS: Calcium* 9.1 mg/dL (8.4-10.6)
[2024-04-12 09:40] LABS: Slide Review Reflex No
--- NOTE | 2024-04-14 13:13 | URNOTE ---
Request received for authorization for Zoledronic Acid (Zometa) ([id number]). Prior authorization is approved per [facility], Ref#[id number], date range: 04/26/2024-10/22/2024.
--- NOTE | 2024-04-22 13:59 | ONC.NURNOTE ---
Patient called to report a burning sensation when she swallows that started last evening. She states it does not feel like a sore throat associated with respiratory virus but more like heart burn. She has not tried any heart burn medications because she wasn't sure if she could with her Verzenio. She did report eating a [employer] sandwich yesterday that could have caused this. Overall, patient is feeling well but does continue to have diarrhea on a daily basis. She is taking 1-2 Imodium per day. The diarrhea has been going on for months but has increased slightly since starting the Verzenio. Patient will try an OTC heartburn medication and monitor her symptoms closely. Patient encouraged to call if her symptoms worsen or do not improve.
[2024-04-26 12:58] VITALS: BP 137/73; PULSE 72; RESP 17; TEMP 36.4; O2SAT 93
[2024-04-26 13:33] LABS: Basophils Percent Auto 0.8 % (0.0-3.0); Hemoglobin* 12.4 gm/dL (12.0-16.0); Immature Granulocytes Pct Auto 0.3 %; Lymphocytes Percent Auto 28.4 % (20-44); Mean Corpuscular HGB Conc 32 gm/dL (32-36); Mean Corpuscular Hemoglobin 31 pg (26-34); Mean Corpuscular Volume 97 fL (80-100); Neutrophils Percent Auto 65.5 % (42.0-72.0); Platelet Count* 190 K/uL (140-440); RDW Coefficient of Variation % 15.8 % (11.5-15.5); Red Blood Count 4.01 m/uL (4.00-5.20)
[2024-04-26] MEDS: ZOLEDRONIC ACID 4 MG in 0.9 % SODIUM CHLORIDE 100 ml 100 ML 420 MG IVPB (13:40)
[2024-04-26 13:46] LABS: Albumin* 4.2 g/dL (3.3-5.0); Chloride* 107 mmol/L (96-114); Potassium* 4.3 mmol/L (3.6-5.1); Sodium* 143 mmol/L (135-149)
[2024-04-26 13:48] LABS: Creatinine* 0.8 mg/dL (0.5-1.5); Estimated Glomerular Filt Rate 76 ml/min
[2024-04-26 13:49] LABS: Alanine Aminotransferase* 19 U/L (4-35); Alkaline Phosphatase* 155 U/L (40-150); Anion Gap 8 mEq/L (7-15); Aspartate Amino Transferase* 21 U/L (12-35); Bilirubin Total* 0.4 mg/dL (0.1-1.5); Blood Urea Nitrogen* 18 mg/dL (7-30); Carbon Dioxide* 28 mmol/L (20-32); Glucose* 107 mg/dL (60-115); Lactate Dehydrogenase* 181 U/L (120-246); Total Protein* 6.5 g/dL (6.0-8.3)
[2024-04-26 13:50] LABS: Calcium* 8.9 mg/dL (8.4-10.6)
[2024-04-26 13:54] LABS: Slide Review Reflex No
[2024-04-26] MEDS: SODIUM CHLORIDE 0.9 % (FLUSH) 10 ML SYRINGE IVF (14:16)
[2024-04-26] MEDS: 0.9 % SODIUM CHLORIDE 500 ML IV (14:16)
[2024-05-12 12:16] LABS: Basophils Percent Auto 1.1 % (0.0-3.0); Hematocrit 39.6 % (33.0-51.0); Hemoglobin* 12.5 gm/dL (12.0-16.0); Immature Granulocytes Pct Auto 0.3 %; Lymphocytes Percent Auto 28.8 % (20-44); Mean Corpuscular HGB Conc 32 gm/dL (32-36); Mean Corpuscular Hemoglobin 31 pg (26-34); Mean Corpuscular Volume 99 fL (80-100); Monocytes Percent Auto 5.8 % (0.0-11.0); Platelet Count* 213 K/uL (140-440); RDW Coefficient of Variation % 16.6 % (11.5-15.5); White Blood Count* 3.78 K/uL (4.50-11.00)
[2024-05-12 12:20] LABS: Slide Review Reflex No
[2024-05-12 12:32] LABS: Albumin* 4.4 g/dL (3.3-5.0); Chloride* 104 mmol/L (96-114)
[2024-05-12 12:33] LABS: Potassium* 4.5 mmol/L (3.6-5.1); Sodium* 141 mmol/L (135-149)
[2024-05-12 12:35] LABS: Alkaline Phosphatase* 119 U/L (40-150); Anion Gap 7 mEq/L (7-15); Aspartate Amino Transferase* 34 U/L (12-35); Bilirubin Total* 0.5 mg/dL (0.1-1.5); Blood Urea Nitrogen* 14 mg/dL (7-30); Carbon Dioxide* 30 mmol/L (20-32); Creatinine* 0.8 mg/dL (0.5-1.5); Estimated Glomerular Filt Rate 76 ml/min; Total Protein* 6.5 g/dL (6.0-8.3)
[2024-05-12 12:36] LABS: Alanine Aminotransferase* 27 U/L (4-35); Calcium* 8.4 mg/dL (8.4-10.6); Glucose* 93 mg/dL (60-115); Lactate Dehydrogenase* 237 U/L (120-246)
[2024-06-17 13:11] LABS: Basophils Percent Auto 0.6 % (0.0-3.0); Hematocrit 42.7 % (33.0-51.0); Hemoglobin* 13.9 gm/dL (12.0-16.0); Immature Granulocytes Pct Auto 0.6 %; Lymphocytes Percent Auto 30.2 % (20-44); Mean Corpuscular HGB Conc 33 gm/dL (32-36); Mean Corpuscular Hemoglobin 32 pg (26-34); Mean Corpuscular Volume 99 fL (80-100); Monocytes Percent Auto 6.9 % (0.0-11.0); Neutrophils Percent Auto 61.7 % (42.0-72.0); Platelet Count* 206 K/uL (140-440); RDW Coefficient of Variation % 15.8 % (11.5-15.5); White Blood Count* 3.61 K/uL (4.50-11.00)
[2024-06-17 13:12] LABS: Slide Review Reflex No
[2024-06-17 13:27] LABS: Albumin* 4.7 g/dL (3.3-5.0); Chloride* 104 mmol/L (96-114); Potassium* 4.4 mmol/L (3.6-5.1); Sodium* 141 mmol/L (135-149)
[2024-06-17 13:29] LABS: Blood Urea Nitrogen* 19 mg/dL (7-30); Creatinine* 0.7 mg/dL (0.5-1.5); Estimated Glomerular Filt Rate 90 ml/min
[2024-06-17 13:30] LABS: Alanine Aminotransferase* 112 U/L (4-35); Alkaline Phosphatase* 132 U/L (40-150); Anion Gap 9 mEq/L (7-15); Aspartate Amino Transferase* 101 U/L (12-35); Bilirubin Total* 0.9 mg/dL (0.1-1.5); Calcium* 9.3 mg/dL (8.4-10.6); Carbon Dioxide* 28 mmol/L (20-32); Glucose* 91 mg/dL (60-115); Total Protein* 7.2 g/dL (6.0-8.3)
--- NOTE | 2024-06-18 13:35 | ONC.NURNOTE ---
LFT results reviewed with Chetna Downing APRN. Per [facility] dose modification guidelines, no dose modification is required. Will discuss further with Dr. Finn at patients follow up 06/21. Per patient, she had a slight increase in her alcohol intake while on vacation, about 2 drinks per day. Her baseline is one drink per day. She overall feels good. Grade 1 (>ULN-3.0 x ULN) Grade 2 (>3.0-5.0 x ULN), WITHOUT increase in total bilirubin above 2 x ULN No dose modification is required.
[2024-07-05 13:42] LABS: Basophils Percent Auto 0.9 % (0.0-3.0); Hematocrit 38.8 % (33.0-51.0); Hemoglobin* 12.7 gm/dL (12.0-16.0); Immature Granulocytes Pct Auto 0.3 %; Lymphocytes Percent Auto 30.7 % (20-44); Mean Corpuscular HGB Conc 33 gm/dL (32-36); Mean Corpuscular Hemoglobin 33 pg (26-34); Mean Corpuscular Volume 101 fL (80-100); Monocytes Percent Auto 6.6 % (0.0-11.0); Neutrophils Percent Auto 61.5 % (42.0-72.0); Platelet Count* 177 K/uL (140-440); RDW Coefficient of Variation % 15.2 % (11.5-15.5); Red Blood Count 3.84 m/uL (4.00-5.20); White Blood Count* 3.48 K/uL (4.50-11.00)
[2024-07-05 13:50] LABS: Slide Review Reflex No
[2024-07-05 14:03] LABS: Albumin* 4.2 g/dL (3.3-5.0)
[2024-07-05 14:05] LABS: Blood Urea Nitrogen* 29 mg/dL (7-30); Creatinine* 0.9 mg/dL (0.5-1.5); Estimated Glomerular Filt Rate 66 ml/min
[2024-07-05 14:06] LABS: Alanine Aminotransferase* 78 U/L (4-35); Alkaline Phosphatase* 98 U/L (40-150); Aspartate Amino Transferase* 68 U/L (12-35); Bilirubin Total* 0.6 mg/dL (0.1-1.5); Carbon Dioxide* 27 mmol/L (20-32); Total Protein* 6.5 g/dL (6.0-8.3)
[2024-07-05 14:36] LABS: Chloride* 105 mmol/L (96-114)
[2024-07-05 14:37] LABS: Anion Gap 9 mEq/L (7-15); Potassium* 4.4 mmol/L (3.6-5.1); Sodium* 141 mmol/L (135-149)
[2024-07-05 14:40] LABS: Calcium* 9.2 mg/dL (8.4-10.6); Glucose* 90 mg/dL (60-115)
--- NOTE | 2024-07-05 16:18 | ONC.NURNOTE ---
Labs within parameters to continue Verzenio. LFTs improved. Patient states she has not been taking Tylenol and is only having a few drinks per week. Patient has increased her Verzenio dose to 150 daily alternating with [address] Finn recommendation. She feels great and denies any new/worsening symptoms. States her diarrhea is unchanged. Patient will continue current dose and follow up in 2 weeks for labs and provider visit.
[2024-07-19 12:25] LABS: Albumin* 4.1 g/dL (3.3-5.0)
[2024-07-19 12:28] LABS: Alanine Aminotransferase* 56 U/L (4-35); Alkaline Phosphatase* 95 U/L (40-150); Aspartate Amino Transferase* 49 U/L (12-35); Bilirubin Direct* 0.2 mg/dL (0.0-0.5); Bilirubin Total* 0.7 mg/dL (0.1-1.5); Total Protein* 6.5 g/dL (6.0-8.3)
[2024-07-26 09:25] LABS: Basophils Percent Auto 1.3 % (0.0-3.0); Hematocrit 38.3 % (33.0-51.0); Hemoglobin* 12.6 gm/dL (12.0-16.0); Lymphocytes Percent Auto 33.5 % (20-44); Mean Corpuscular HGB Conc 33 gm/dL (32-36); Mean Corpuscular Hemoglobin 34 pg (26-34); Mean Corpuscular Volume 102 fL (80-100); Monocytes Percent Auto 7.6 % (0.0-11.0); Neutrophils Percent Auto 57.6 % (42.0-72.0); Platelet Count* 151 K/uL (140-440); RDW Coefficient of Variation % 14.8 % (11.5-15.5); Red Blood Count 3.75 m/uL (4.00-5.20); White Blood Count* 3.16 K/uL (4.50-11.00)
[2024-07-26 09:27] LABS: Slide Review Reflex No
[2024-07-26 09:45] LABS: Albumin* 4.4 g/dL (3.3-5.0); Chloride* 106 mmol/L (96-114); Potassium* 5.1 mmol/L (3.6-5.1); Sodium* 139 mmol/L (135-149)
[2024-07-26 09:47] LABS: Blood Urea Nitrogen* 17 mg/dL (7-30); Creatinine* 0.8 mg/dL (0.5-1.5); Estimated Glomerular Filt Rate 76 ml/min
[2024-07-26 09:48] LABS: Alanine Aminotransferase* 39 U/L (4-35); Alkaline Phosphatase* 82 U/L (40-150); Anion Gap 6 mEq/L (7-15); Aspartate Amino Transferase* 41 U/L (12-35); Bilirubin Total* 0.8 mg/dL (0.1-1.5); Calcium* 9.2 mg/dL (8.4-10.6); Carbon Dioxide* 27 mmol/L (20-32); Glucose* 89 mg/dL (60-115); Total Protein* 6.6 g/dL (6.0-8.3)
--- NOTE | 2024-07-26 11:03 | ONC.NURNOTE ---
Labs reviewed. All within parameters to continue Verzenio 150 mg BID. She started this increased dose 07/24. Denies any concerns or changes to her diarrhea. Patient will have her brain MRI this week and will follow up with Xi for labs and Zometa 08/09.
[2024-08-09 14:12] LABS: Basophils Percent Auto 1.1 % (0.0-3.0); Hematocrit 37.7 % (33.0-51.0); Hemoglobin* 12.8 gm/dL (12.0-16.0); Immature Granulocytes Pct Auto 0.7 %; Lymphocytes Percent Auto 33.8 % (20-44); Mean Corpuscular HGB Conc 34 gm/dL (32-36); Mean Corpuscular Hemoglobin 35 pg (26-34); Mean Corpuscular Volume 102 fL (80-100); Monocytes Percent Auto 5.1 % (0.0-11.0); Neutrophils Percent Auto 59.3 % (42.0-72.0); Platelet Count* 144 K/uL (140-440); RDW Coefficient of Variation % 14.7 % (11.5-15.5); White Blood Count* 2.75 K/uL (4.50-11.00)
[2024-08-09 14:20] LABS: Albumin* 4.1 g/dL (3.3-5.0); Chloride* 107 mmol/L (96-114)
[2024-08-09 14:21] LABS: Potassium* 3.7 mmol/L (3.6-5.1); Sodium* 140 mmol/L (135-149)
[2024-08-09 14:23] LABS: Alanine Aminotransferase* 27 U/L (4-35); Alkaline Phosphatase* 68 U/L (40-150); Anion Gap 6 mEq/L (7-15); Aspartate Amino Transferase* 37 U/L (12-35); Bilirubin Total* 0.7 mg/dL (0.1-1.5); Blood Urea Nitrogen* 19 mg/dL (7-30); Carbon Dioxide* 27 mmol/L (20-32); Creatinine* 0.8 mg/dL (0.5-1.5); Estimated Glomerular Filt Rate 76 ml/min; Total Protein* 6.3 g/dL (6.0-8.3)
[2024-08-09 14:24] LABS: Calcium* 8.8 mg/dL (8.4-10.6); Glucose* 101 mg/dL (60-115); Lactate Dehydrogenase* 227 U/L (120-246)
[2024-08-09 14:28] LABS: Slide Review Reflex No
[2024-08-09] MEDS: ZOLEDRONIC ACID 4 MG in 0.9 % SODIUM CHLORIDE 100 ml 100 ML 420 MG IVPB (14:45)
[2024-08-09] MEDS: SODIUM CHLORIDE 0.9 % (FLUSH) 10 ML SYRINGE IVF (14:45)
== END 2024-08-30 23:59 | disposition home or self-care (01) ==
LOC: CCIC 13:15
PROVIDERS: Internal Medicine Hematology & Oncology; PCP Family Medicine; Referring Provider Family Medicine; Visit Provider Physician Assistant
DX: C79.51 Secondary malignant neoplasm of bone (principal); Z85.3 Personal history of malignant neoplasm of breast; C79.52 Secondary malignant neoplasm of bone marrow; Z79.83 Long term (current) use of bisphosphonates; Z79.811 Long term (current) use of aromatase inhibitors; Z79.82 Long term (current) use of aspirin; D75.1 Secondary polycythemia
CPT/HCPCS: 36415; 80053; 80076; 82310; 82565; 83615; 85025; 96365; 96374; 99202; 99205; 99215; G0463; J3489; J7030

== ENCOUNTER 2024-09-09 15:10 | Outpatient (CLI) | payer MEDICARE, SELFPAY ==
--- NOTE | 2024-09-09 15:30 | CRLHL7_ITS ---
For Patients: As a result of the 21st Century Cures Act, medical imaging exams and procedure reports are released immediately into your electronic medical record. You may view this report before your referring provider. If you have questions, please contact your health care provider. Indication: Metastatic breast cancer, left-sided infiltrating ductal carcinoma, subsequent examination Technique: Patient was injected in the right antecubital vein with 15.25 mCi FDG intravenously, with PET-CT imaging performed from the skull base to mid thighs [address] images were obtained for attenuation correction and localization, and do not replace a diagnostic quality examination. Blood glucose: 90 mg/dL. Comparison: Multiple examinations, most recently PET-CT performed 06/17/2024 Findings: Liver background: SUVMean 2.6, previously 2.4 Mediastinal blood pool background: SUVMean 2.3, previously 2.1 Head and Neck Brain: No abnormal foci of uptake appreciated. Sinuses, orbits, mastoids: No significant abnormality or abnormal uptake appreciated. Oral cavity, pharynx, larynx: No significant abnormality or abnormal uptake appreciated. Lymph nodes: No enlarged or avid nodes appreciated. Thyroid: Grossly unremarkable. Chest Lungs: No abnormal foci of uptake appreciated. No concerning nodule or mass. No consolidation. No pneumothorax. No effusion. Emphysema. Scarring and/or atelectasis. Mediastinum: Calcified coronary arterial and aortic atherosclerosis. Lymph nodes: No enlarged or avid nodes appreciated. Abdomen and Pelvis Hepatobiliary: No abnormal foci of uptake. No significant abnormality appreciated. Spleen: Unremarkable. Pancreas: Unremarkable. Adrenal glands: Unremarkable. Kidneys: Parenchyma appears grossly unremarkable with no abnormal uptake appreciated. No calculi. No hydronephrosis. Bowel: No abnormal focal uptake appreciated. No mass lesion. Vascular: No significant abnormality appreciated. Lymph nodes: No enlarged or avid nodes appreciated. Peritoneum: No avid mass. No free air. No free fluid. : No abnormal uptake appreciated. Soft tissues: Left mastectomy and reconstruction. Bones: Mixed interval response. The majority of the lesions continue to show decrease in radiotracer avidity, though some lesions are new/increased in the interim. Lesion associated with the left femoral neck demonstrates an increase in avidity with SUV max 5.7, previously 4.2. A lesion in the posterior left iliac bone measures SUV max 4.5, previously 3.6. There is new/increased uptake within the spinous process of L5, SUV max 3.5, previously 2.0. C7 lesion has decreased measuring 2.7, previously 4.5 SUV max. Distal sternal lesion has decreased with SUV max measuring 2.2, previously 3.7. Impression: Overall favor mixed interval response. While the majority of the avid osseous lesions continue to show a decrease in uptake, there are a few scattered areas of interval increased/new uptake, most notably within the L5 spinous process, posterior left iliac bone, and left femoral neck. Dictated by Shaka Garcia MD @ 09/10/2024 9:08:30 PM (Electronically Signed)
--- OUTSIDE RECORDS SUMMARY | 2024-09-10 00:58 | XMS_ITS | Clinical Summary ---
Author Organization [facility] Address [address] [place] [id number] Care Team Providers Care [employer] Consultant Name Role Phone Elsewhere, Pcp Primary Care Provider Unavailabl e Source Comments Patient records contain information from all sites at [facility]. For routine questions regarding patient records, call [phone] during business hours, M-F 8:00 AM - 5:00 PM Central Time. Record requests for emergency care only can be directed to [phone] at any time.[facility] Allergies No known active allergies Medications * [...] 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 024 Family History Medical History Relation Name Comments [...] drink = 0.6 oz pur e alcohol) [facility] [employer] Answer Date Recorded In the past 12 months has e [employer], gas, oil, or water [employer] threatened to shut off services in your [...] week 07/18/2022 How often do you attend [facility] or latter day services? More than 4 times per year 07/18/2022 Do you belong to any clubs o r organizations such as jew groups, unions, fraternal or athletic groups, or [...] and heating? Not hard at all 07/18/2022 [facility] - [...] Comments Blood Pressure 132/63 03/09/2024 9:58 AM [facility] Pulse 84 03/09/2024 9:58 AM [employer] [employer] Temperature 36.7 C (98 F) 03/09/2024 9:58 AM [facility] [employer] Respiratory Rate - - Oxygen Saturation - - Inhaled Oxygen Concentration - - Weight 76.3 kg (168 lb 3.4 oz) 03/09/2024 9:58 A M [employer] Height 172.9 cm (5' 8.07) 07/23/2022 2:24 PM CD T Body Mass Index 25.52 07/23/2022 2:24 PM CDT Plan of Treatment Health Maintenance Due Date Last Done Comments Hepatitis C Screening 1945 Depression Screening (Annual PHQ-2) 03/24/2024 Fall Risk Screen (Annual) 03/24/2024 DTaP,Tdap,and Td Vaccines (3 - Td or Tdap) 08/14/2028 08/14/2018, 12/26/2008 Pneumococcal vaccine (50+ years) Completed 11/28/2017, 03/10/2015, 12/19/2008 Zoster Vaccines Completed 03/01/2019, 11/23, 12/26/2008 RSV vaccine - (32-36 weeks) or 60+ years Completed 03/05/2023 Mammogram Discontinued 07/29/2023 Influenza Vaccine Completed 01/12/2024, , 12/28/2021, Additional history exists COVID-19 Vaccine Completed 07/14/2024, , 12/26/2022, Additional history exists HPV Vaccines Aged Out No longer eligi ble based on patient's age to complete this topic IPV Vaccines Aged Out No longer eligi ble based on patient's age to complete this topic Medical Devices Implanted Type Area Math Coach Device Identifier Shelf Expiration Date Model / Serial / Lot Ankle Implant Ankle Implant Right: Ankle Description:Broke lower leg/ ankle and may or may not have hardware. Procedures Procedure Name Priority Date/Time Associated Diagnosis Comments OUTSIDE MR NEURO Routine 08/03/2024 3:45 PM CDT OUTSIDE NM PET Routine 06/17/2024 2:15 PM CDT OUTSIDE MG MAMMOGRAM Routine 07/29/2023 3:20 PM CDT from Last 3 Months or Most Recently Relevant to Health Maintenance Results * MR head/brain wo/w con-Outside MR Neuro (08/03/2024 3:45 PM CDT) Narrative [facility] - 08/05/2024 3:11 PM CDT This order has been created and auto-finalized to support the import of outside images. If available, original interpretation can be found on the Media Tab in Chart Review, in Document Viewer, as an image in InfinityView or as an Addendum. If a re-interpretation or overread is required please follow defined workflow. us Provider Not In System IMG MRI PROCEDURES Final Result [facility] NA * PET skull to mid thigh-Outside NM Pet (06/17/2024 2:15 PM CDT) 06/17/2024 2:12 PM CDT Narrative [facility] - 06/17/2024 3:54 PM CDT This order has been created and auto-finalized to support the import of outside images. If available, original interpretation can be found on the Media Tab in Chart Review, in Document Viewer, as an image in [employer]View or as an Addendum. If a re-interpretation or overread is required please follow defined workflow. us Provider Not In System IMG NM PROCEDURES Final R esult [facility] NA * MM screening mammo unilat RT-Outside Mammogram (07/29/2023 3:20 PM CDT) Narrative [facility] - 03/08/2024 1:20 PM [facility] This order has been created and auto-finalized to support the import of outside images. If available, original interpretation can be found on the Media Tab in Chart Review, in Document Viewer, as an image in QREADS or as an Addendum. If a re-interpretation or overread is required please follow defined workflow. us Provider Not In System IMG BI PROCEDURES Final R esult [facility] NA from Last 3 Months or Most Recently Relevant to Health Maintenance Insurance [employer] Care Teams [employer] Consultant Relationship Specialty Start Date End Date Elsewhere, Pcp PCP - General Internal Medicine 07/18/22
--- OUTSIDE RECORDS SUMMARY | 2024-09-10 00:58 | XMS_ITS | Clinical Summary ---
Author Organization [facility] Address [address] [place] [id number] Care Team Providers Care Production Crew Supervisor Name Role Phone Kosta Mercado Unavailable [phone] Pcp, No Primary Care Provider Unavailabl e Allergies No known active allergies Medications venlafaxine [...] Unspecified sleep apnea 08/25/2006 12/0 07/2010 Immunizations Immunization Administration Dates Next Due Influenza A (H1N1), [...] Sex Assigned at Female 03/07/2024 3:34 PM OFFICE HELPER Legal Sex Female 6:10 AM OFFICE HELPER Gender Identity Female 03/07/2024 3:34 PM OFFICE HELPER Sexual Orientation Not on file Obstetrics History Last Filed Vital Signs Vital Sign Reading Time Taken Comments Blood Pressure 136/77 04/17/2021 11:32 AM OFFICE HELPER Pulse 85 04/17/2021 11:32 AM OFFICE HELPER Temperature 36.7 C (98.1 F) 09/03/2018 11:34 AM CDT Respiratory Rate 16 01/13/2013 1:58 PM CDT Oxygen Saturation 96% 04/17/2021 11:32 AM OFFICE HELPER Inhaled Oxygen Concentration - - Weight 85 kg (187 lb 4.8 oz) 04/17/2021 11:32 AM OFFICE HELPER Height 172.7 cm (5' 8) 08/14/2018 3:49 PM CDT Body Mass Index 28.48 08/14/2018 3:49 PM CDT Plan of Treatment Health Maintenance Due Date Last Done Comments Depression screening for age 12+ 1959 Hepatitis C screening for age 18-79 11/30/1965 Zoster (shingles) series for age 50+ (2 of 3) 02/20/2009 12/26/2008 Medicare Wellness for age 65+ 01/14/2014 01/13/2013 BMI (ht and wt on same day) for age 18+ 08/15/2019 08/14/2018 RSV vaccine for adults or (1 - 1-dose 75+ series) 11/30/2022 COVID-19 vaccine series ( season) 2023 01/04/2021, 06/30/2020, 06/08/2020 Influenza Vaccine (Season Ended) 2024 11/28/2017, 01/05/2017, 12/22/2012, Additional history exists Tetanus booster 08/14/2028 08/14/2018, 07/2008, 12/26/2008 DEXA/DXA scan for age 65+ Completed 2013, 01/02/2012, 02/20/2010, Additional history exists Pneumococcal series for age 50+ Completed 11/28/2017, 03/10/2015, 12/19/2008 Tdap Completed 08/14/2018, 12/26/2008 Hepatitis B series for 19+ Aged Out N o longer eligible based on patient's age to complete this topic Medical Devices Implanted Type 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 Test 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 Device Identifier Shelf Expiration Date Model / Serial / Lot Implnt Mammary 350-1485 - [id number] Implanted:Qty: 1 on 08/27/2005 at [facility] Explanted:at [facility] (Quantity not on file) Left: Breast [employer] 350-1485# / [id number] Implnt Mammary 600cc - [id number] Implanted:Qty: 1 on 03/27/2006 at [facility] Explanted:at [facility] (Quantity not on file) Left: Breast [employer] [id number] # / [id number] Procedures Procedure Name Priority Date/Time Associated Diagnosis Comments XR DXA BONE DENSITY 2 SITES AXIAL Routine 04/08/2013 9:46 AM OFFICE HELPER Unspecified osteoporosis from Last 3 Months or Most Recently Relevant to Health Maintenance Results * (ABNORMAL) XR DXA BONE DENSITY 2 SITES (04/08/2013 9:46 AM OFFICE HELPER) Anatomical Region Laterality Modality Spine, HIPS, HIPL, HIPR Other Narrative 04/23/2013 10:50 AM OFFICE HELPER Please see scanned document for results of this study. Procedure Note Jannette Cardona PA - 04/23/2013 Please see scanned document for results of this study. us Destini Judge NP DEXA Final Result from Last 3 Months or Most Recently Relevant to Health Maintenance Insurance BLUE CROSS MEDICARE ADVANTAGE MR MEDICARE PART A HB ONLY MEDICARE PROVIDER BASED [facility] Advance Directives Documents on File Type Date Recorded Patient Direct Support Professional Expl anation Healthcare Directive 09/01/2005 * Full Code (Latest Code Status on File) Date Activated Date Inactivated Comments 07/10/2006 2:14 PM 07/10/2006 10:42 PM * Full Code Date Activated Date Inactivated Comments 03/27/2006 7:15 AM 03/27/2006 12:56 PM * Full Code Date Activated Date Inactivated Comments 08/27/2005 6:28 AM 08/30/2005 4:46 PM Care Teams Production Crew Supervisor Relationship Specialty Start Date End Date Pcp, No . PCP - General 03/29/24 Kosta Mercado [address] [place] [id number] Ophthalmology Load Checker 01/13/13
== END 2024-09-09 15:11 | disposition home or self-care (01) ==
LOC: RAD 15:11
PROVIDERS: PCP Family Medicine; Visit Provider Physician Assistant
DX: C79.52 Secondary malignant neoplasm of bone marrow (principal); C50.919 Malignant neoplasm of unspecified site of unspecified female breast; C79.51 Secondary malignant neoplasm of bone
CPT/HCPCS: 78815; A9552

== ENCOUNTER 2024-10-26 12:43 | Outpatient (CLI) | payer MEDICARE, SELFPAY ==
--- NOTE | 2024-10-26 13:00 | CRLHL7_ITS ---
For Patients: As a result of the Century Cures Act, medical imaging exams and procedure reports are released immediately into your electronic medical record. You may view this report before your referring provider. If you have questions, please contact your health care provider. INDICATION: UNILATERAL RIGHT BREAST SCREENING MAMMOGRAM, ASYMPTOMATIC 78 Y/O FEMALE COMPARISON: 07/29/2023, 07/11/2021, 07/10/2020 TECHNIQUE: Digital mammogram in CC and MLO projections including computer-aided detection (CAD) and tomosynthesis. BREAST COMPOSITION: There are scattered areas of fibroglandular density. FINDINGS: No suspicious findings. ASSESSMENT: BI-RADS 1 Negative RECOMMENDATION: Annual screening mammogram. A lay language report of this examination will be provided to the patient. Dictated by: Parth Tan MD @ 10/27/2024 08:47:56 (Electronically Signed)
== END 2024-10-26 12:44 | disposition home or self-care (01) ==
PROVIDERS: PCP Family Medicine; Visit Provider Family Medicine
DX: Z12.31 Encounter for screening mammogram for malignant neoplasm of breast (principal)
CPT/HCPCS: 77063; 77067

== ENCOUNTER 2024-11-15 14:23 | Outpatient (CLI) | payer MEDICARE, SELFPAY ==
--- NOTE | 2024-11-15 14:30 | CRLHL7_ITS ---
For Patients: As a result of the Century Cures Act, medical imaging exams and procedure reports are released immediately into your electronic medical record. You may view this report before your referring provider. If you have questions, please contact your health care provider. INDICATION: Breast cancer, evaluate for intracranial metastasis. TECHNIQUE: Multisequence multiplanar MRI of the brain prior to and following administration of 15 cc Dotarem gadolinium-based intravenous contrast. COMPARISON: MRI brain studies dated 08/03/2024 and 05/05/2024. FINDINGS: No evidence of acute ischemia. Similar scattered foci of T2 prolongation within the white matter of both cerebral hemispheres typical of mild chronic small vessel ischemic changes. No focus of abnormal brain parenchymal or leptomeningeal enhancement. Continued decreased conspicuity of dural thickening at the right frontal convexity. The ventricles are unchanged in size. There is similar mild diffuse parenchymal volume loss. A partially empty sella turcica is again noted. Flow voids of the larger intracranial arteries are preserved. Similar diffuse osseous metastases throughout the calvarium, skull base, and imaged upper cervical spine. Bilateral pseudophakia. Similar lobulated mucosal thickening within the left maxillary alveolar recess. IMPRESSION: 1. No focus of abnormal or suspicious brain parenchymal or leptomeningeal enhancement. 2. Continued decreased conspicuity of dural thickening at the right frontal convexity. 3. Stable diffuse osseous metastases throughout the calvarium, skull base, and visualized cervical spine. 4. Similar mild diffuse parenchymal volume loss and chronic small vessel ischemic changes. Dictated by Vineet Bower MD @ 11/15/2024 4:24:38 PM (Electronically Signed)
== END 2024-11-15 14:24 | disposition home or self-care (01) ==
LOC: MRI 14:23
PROVIDERS: PCP Family Medicine; Visit Provider Physician Assistant
DX: C50.919 Malignant neoplasm of unspecified site of unspecified female breast (principal); C79.51 Secondary malignant neoplasm of bone; C79.52 Secondary malignant neoplasm of bone marrow
CPT/HCPCS: 70553; A9575

== ENCOUNTER 2024-12-16 13:45 | Outpatient (CLI) | payer MEDICARE, SELFPAY ==
--- NOTE | 2024-12-16 14:00 | CRLHL7_ITS ---
For Patients: As a result of the 21st Century Cures Act, medical imaging exams and procedure reports are released immediately into your electronic medical record. You may view this report before your referring provider. If you have questions, please contact your health care provider. EXAM: FDG PET-CT Skull Base to Thighs CLINICAL INFORMATION: 79-year-old woman with history of metastatic breast cancer. Restaging TECHNIQUE: Radiopharmaceutical: 18F-fluorodeoxyglucose (18F-FDG) Dose: 11.80 MilliCurie. Blood glucose: 119 mg/dL. Image acquisition: At approximately 60 minutes following IV tracer administration via a right hand vein, positron emission tomography was performed from the skull base through the mid thigh. Non-contrast low-dose helical CT imaging was performed over the same range without breath-hold for attenuation correction of PET images and anatomic correlation; it is neither sufficient, nor should it be substituted for diagnostic purposes. COMPARISON: FDG PET-CT 09/09/2024. MRI brain 11/15/2024. FINDINGS: Mediastinal blood pool FDG uptake: SUVMax 2.1 (Image 77) Liver background parenchymal FDG uptake: SUVMax 2.6 (image 115) PET Findings: Left mastectomy with reconstruction. No abnormal focal increased FDG uptake in the chest wall. No abnormal FDG avid lymphadenopathy. Overall decreased multifocal FDG avid osseous metastases in the axial and appendicular skeleton. For example: -Resolved FDG avidity in a lesion in the left posterior iliac bone SUVMax 2.1, at the level of blood pool (image 186), previously SUV max 4.5. *Resolved FDG uptake in a lesion in the left posterior acetabulum, previously with SUVMax 3.6 (301:250, 202:251), remeasured in the same plane). -Resolved FDG uptake in a previously visualized L5 dorsal spinous process lesion. A few lesions are similar, for example a similar moderately FDG avid lesion in the left femoral neck with SUVMax 5.6 (301:236, 202:447), previously SUVmax 5.7. No substantial change of other multiple scattered osseous lesions that are either non FDG avid or faintly FDG avid or mildly FDG avid, likely sites of treated/quiescent osseous metastatic disease. Tracer uptake elsewhere is physiologic. Non-PET findings: Bilateral lens replacements. Subcentimeter pulmonary nodules too small to characterize. Upper lung predominant centrilobular and paraseptal emphysema. Coronary artery calcifications. Atherosclerotic calcifications of the thoracic and abdominal aorta. Cardiomegaly. 2.0 x 1.4 cm right adrenal adenoma. Scattered right renal photopenic hypodense lesions, one consistent with a cyst, others too small to characterize but statistically likely cysts. 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 Left renal cortical and sinus cysts. Colonic diverticulosis. Multilevel degenerative changes in the spine. IMPRESSION: 1. Left mastectomy with reconstruction. No evidence of FDG avid locally recurrent disease. 2. Overall decreased multifocal FDG avid osseous metastases, with residual metabolically active osseous metastases. 3. No evidence of FDG avid angie metastatic disease. Dictated by Gonzalo Covington MD @ 12/20/2024 6:19:07 AM (Electronically Signed)
== END 2024-12-16 13:46 | disposition home or self-care (01) ==
LOC: RAD 13:45
PROVIDERS: PCP Family Medicine; Visit Provider Internal Medicine Hematology & Oncology
DX: C50.919 Malignant neoplasm of unspecified site of unspecified female breast (principal); C79.52 Secondary malignant neoplasm of bone marrow; C79.51 Secondary malignant neoplasm of bone
CPT/HCPCS: 78815; A9552

== ENCOUNTER 2025-02-14 10:30 | Outpatient (RCR) | payer MEDICARE, SELFPAY ==
--- NOTE | 2024-09-06 10:40 | ONC.NURNOTE ---
Call to patient for an update on her condition. Patient states she is [place] and feels really good. Her fatigue and appetite have improved. Her stools are still loose, but only 1 to 2 per day, which is closer to her baseline. Patient is using Imodium once every few days. Patient will resume her Verzenio at 150 mg daily. Patient will have her PET/CT on 09/09 and has follow up with Dr. Finn 09/13 to review results. Patient verbalizes understanding of plan.
[2024-09-13 10:14] LABS: Hematocrit* 40.0 % (33.0-51.0); Hemoglobin* 13.4 gm/dL (12.0-16.0); Immature Granulocytes Pct Auto 0.5 %; Mean Corpuscular HGB Conc 34 gm/dL (32-36); Mean Corpuscular Hemoglobin 35 pg (26-34); Mean Corpuscular Volume 104 fL (80-100); RDW Coefficient of Variation % 15.2 % (11.5-15.5); Red Blood Count* 3.84 m/uL (4.00-5.20); White Blood Count* 3.99 K/uL (4.50-11.00)
[2024-09-13 10:15] LABS: Immature Granulocytes Abs Auto 0.00 K/uL (0.00-0.30); Lymphocytes Absolute Auto 1.00 K/uL (0.90-2.90)
[2024-09-13 10:16] LABS: Slide Review Reflex No
[2024-09-13 10:26] LABS: Albumin* 4.8 g/dL (3.3-5.0); Chloride* 106 mmol/L (96-114); Potassium* 4.5 mmol/L (3.6-5.1); Sodium* 141 mmol/L (135-149)
[2024-09-13 10:29] LABS: Alanine Aminotransferase* 23 U/L (4-35); Alkaline Phosphatase* 86 U/L (40-150); Anion Gap 9 mEq/L (7-15); Aspartate Amino Transferase* 39 U/L (12-35); Bilirubin Total* 1.1 mg/dL (0.1-1.5); Blood Urea Nitrogen* 16 mg/dL (7-30); Calcium* 9.8 mg/dL (8.4-10.6); Carbon Dioxide* 26 mmol/L (20-32); Creatinine* 0.9 mg/dL (0.5-1.5); Estimated Glomerular Filt Rate 66 ml/min; Glucose* 107 mg/dL (60-115); Total Protein* 7.3 g/dL (6.0-8.3)
--- NOTE | 2024-10-04 08:54 | ONC.NURNOTE ---
Patient called [facility] with an update on her condition. Patient states that last week she increased her Verzenio to 150 mg BID (patient did not titrate dose up as instructed by Dr. Finn). Since then, she has been having 7-8 watery diarrhea stools per day despite taking Imoidum six times per day. She has no appetite and is forcing herself to eat. She feels like she has lost weight. She is trying to get enough fluids but doesn't feel that she is keeping up. Discussed with Xi Colon PA-C. Patient instructed to hold Verzenio and come to clinic for BMP, GI stool panel and 1L normal saline. [facility] will check in with patient . If her diarrhea is improved to baseline, we will resume Verzenio at 150 mg daily until her next follow up visit. Patient verbalizes understanding.
[2024-10-04 09:45] VITALS: BP 95/63; PULSE 66; RESP 18; TEMP 35.9
[2024-10-04 10:33] LABS: Chloride* 107 mmol/L (96-114)
[2024-10-04 10:34] LABS: Potassium* 4.6 mmol/L (3.6-5.1); Sodium* 137 mmol/L (135-149)
[2024-10-04 10:37] LABS: Anion Gap 4 mEq/L (7-15); Blood Urea Nitrogen* 16 mg/dL (7-30); Calcium* 9.5 mg/dL (8.4-10.6); Carbon Dioxide* 26 mmol/L (20-32); Creatinine* 1.0 mg/dL (0.5-1.5); Est. Creatinine Clearance* 44.80; Estimated Glomerular Filt Rate 58 ml/min; Glucose* 115 mg/dL (60-115)
--- NOTE | 2024-10-07 15:34 | ONC.NURNOTE ---
Call to patient for an update on her condition. Patient states she is feeling much better since holding the verzenio. Patient did not have a bowel movement Friday or Friday and today she had a normal bowel movement. Appetite and intake has also improved. Patient will resume Verzenio at 150 mg once daily starting tomorrow morning. Patient encouraged to call if diarrhea returns, otherwise she will follow up with our team on 10/18 for labs, provider visit and Xgeva.
[2024-10-18 14:33] LABS: Hematocrit* 35.3 % (33.0-51.0); Hemoglobin* 11.9 gm/dL (12.0-16.0); Immature Granulocytes Pct Auto 0.3 %; Mean Corpuscular HGB Conc 34 gm/dL (32-36); Mean Corpuscular Hemoglobin 36 pg (26-34); Mean Corpuscular Volume 107 fL (80-100); RDW Coefficient of Variation % 14.1 % (11.5-15.5); Red Blood Count* 3.30 m/uL (4.00-5.20); White Blood Count* 3.89 K/uL (4.50-11.00)
[2024-10-18 14:38] LABS: Immature Granulocytes Abs Auto 0.00 K/uL (0.00-0.30); Lymphocytes Absolute Auto 1.40 K/uL (0.90-2.90); Slide Review Reflex No
[2024-10-18 14:43] LABS: Albumin* 4.1 g/dL (3.3-5.0); Chloride* 107 mmol/L (96-114); Potassium* 3.8 mmol/L (3.6-5.1); Sodium* 138 mmol/L (135-149)
[2024-10-18 14:45] LABS: Blood Urea Nitrogen* 17 mg/dL (7-30); Creatinine* 0.8 mg/dL (0.5-1.5); Est. Creatinine Clearance* 44.80; Estimated Glomerular Filt Rate 76 ml/min
[2024-10-18 14:46] LABS: Alanine Aminotransferase* 18 U/L (4-35); Alkaline Phosphatase* 65 U/L (40-150); Anion Gap 5 mEq/L (7-15); Aspartate Amino Transferase* 31 U/L (12-35); Bilirubin Total* 0.6 mg/dL (0.1-1.5); Calcium* 9.0 mg/dL (8.4-10.6); Carbon Dioxide* 26 mmol/L (20-32); Glucose* 87 mg/dL (60-115); Total Protein* 6.4 g/dL (6.0-8.3)
[2024-10-18] MEDS: DENOSUMAB 120 MG inj SUBCUT (15:22)
[2024-10-19 17:24] LABS: Creatinine* 0.8 mg/dL (0.5-1.5); Est. Creatinine Clearance* 44.80; Estimated Glomerular Filt Rate 76 ml/min
[2024-10-19 17:25] LABS: Calcium* 8.9 mg/dL (8.4-10.6)
[2024-11-15 08:23] LABS: Hematocrit* 37.4 % (33.0-51.0); Hemoglobin* 12.4 gm/dL (12.0-16.0); Immature Granulocytes Abs Auto 0.00 K/uL (0.00-0.30); Immature Granulocytes Pct Auto 0.0 %; Mean Corpuscular HGB Conc 33 gm/dL (32-36); Mean Corpuscular Hemoglobin 36 pg (26-34); Mean Corpuscular Volume 108 fL (80-100); RDW Coefficient of Variation % 13.8 % (11.5-15.5); Red Blood Count* 3.46 m/uL (4.00-5.20); White Blood Count* 2.94 K/uL (4.50-11.00)
[2024-11-15 08:25] LABS: Lymphocytes Absolute Auto 1.20 K/uL (0.90-2.90); Slide Review Reflex No
[2024-11-15 08:37] LABS: Albumin* 4.3 g/dL (3.3-5.0); Chloride* 104 mmol/L (96-114); Sodium* 137 mmol/L (135-149)
[2024-11-15 08:38] LABS: Potassium* 3.8 mmol/L (3.6-5.1)
[2024-11-15 08:40] LABS: Alanine Aminotransferase* 17 U/L (4-35); Alkaline Phosphatase* 64 U/L (40-150); Anion Gap 6 mEq/L (7-15); Aspartate Amino Transferase* 32 U/L (12-35); Bilirubin Total* 0.6 mg/dL (0.1-1.5); Blood Urea Nitrogen* 13 mg/dL (7-30); Carbon Dioxide* 27 mmol/L (20-32); Creatinine* 0.8 mg/dL (0.5-1.5); Est. Creatinine Clearance* 44.80; Estimated Glomerular Filt Rate 76 ml/min; Total Protein* 6.8 g/dL (6.0-8.3)
[2024-11-15 08:41] LABS: Calcium* 8.9 mg/dL (8.4-10.6); Glucose* 94 mg/dL (60-115)
[2024-11-15] MEDS: DENOSUMAB 120 MG inj SUBCUT (09:18)
--- NOTE | 2024-11-17 14:13 | ONC.NURNOTE ---
Dr. Finn called pt with results of head/Brain MRI. No concerns at this time.
[2024-12-13 08:49] VITALS: BP 160/72; PULSE 60; RESP 15; TEMP 36.4; O2SAT 95
[2024-12-13 08:59] LABS: Creatinine* 0.8 mg/dL (0.5-1.5); Est. Creatinine Clearance* 44.10; Estimated Glomerular Filt Rate 76 ml/min
[2024-12-13 09:00] LABS: Calcium* 9.3 mg/dL (8.4-10.6)
[2024-12-20 09:51] LABS: Hematocrit* 38.8 % (33.0-51.0); Hemoglobin* 13.1 gm/dL (12.0-16.0); Immature Granulocytes Pct Auto 0.3 %; Mean Corpuscular HGB Conc 34 gm/dL (32-36); Mean Corpuscular Hemoglobin 36 pg (26-34); Mean Corpuscular Volume 107 fL (80-100); RDW Coefficient of Variation % 13.9 % (11.5-15.5); Red Blood Count* 3.63 m/uL (4.00-5.20); White Blood Count* 3.11 K/uL (4.50-11.00)
[2024-12-20 09:57] LABS: Immature Granulocytes Abs Auto 0.00 K/uL (0.00-0.30); Lymphocytes Absolute Auto 1.10 K/uL (0.90-2.90); Slide Review Reflex No
[2024-12-20 10:06] LABS: Albumin* 4.3 g/dL (3.3-5.0); Chloride* 103 mmol/L (96-114); Potassium* 4.2 mmol/L (3.6-5.1); Sodium* 138 mmol/L (135-149)
[2024-12-20 10:09] LABS: Alanine Aminotransferase* 16 U/L (4-35); Alkaline Phosphatase* 60 U/L (40-150); Anion Gap 5 mEq/L (7-15); Aspartate Amino Transferase* 34 U/L (12-35); Bilirubin Total* 0.9 mg/dL (0.1-1.5); Blood Urea Nitrogen* 12 mg/dL (7-30); Carbon Dioxide* 30 mmol/L (20-32); Creatinine* 0.8 mg/dL (0.5-1.5); Est. Creatinine Clearance* 44.10; Estimated Glomerular Filt Rate 76 ml/min; Total Protein* 6.6 g/dL (6.0-8.3)
[2024-12-20 10:10] LABS: Calcium* 9.1 mg/dL (8.4-10.6); Glucose* 93 mg/dL (60-115)
[2025-01-17 09:21] LABS: Hematocrit* 36.0 % (33.0-51.0); Hemoglobin* 12.1 gm/dL (12.0-16.0); Immature Granulocytes Pct Auto 0.5 %; Mean Corpuscular HGB Conc 34 gm/dL (32-36); Mean Corpuscular Hemoglobin 36 pg (26-34); Mean Corpuscular Volume 108 fL (80-100); RDW Coefficient of Variation % 13.7 % (11.5-15.5); Red Blood Count* 3.35 m/uL (4.00-5.20); White Blood Count* 4.13 K/uL (4.50-11.00)
[2025-01-17 09:24] LABS: Immature Granulocytes Abs Auto 0.00 K/uL (0.00-0.30); Lymphocytes Absolute Auto 1.40 K/uL (0.90-2.90); Slide Review Reflex No
[2025-01-17 09:30] LABS: Albumin* 4.1 g/dL (3.3-5.0); Chloride* 103 mmol/L (96-114)
[2025-01-17 09:31] LABS: Potassium* 4.7 mmol/L (3.6-5.1); Sodium* 134 mmol/L (135-149)
[2025-01-17 09:33] LABS: Alanine Aminotransferase* 16 U/L (4-35); Anion Gap 4 mEq/L (7-15); Aspartate Amino Transferase* 29 U/L (12-35); Blood Urea Nitrogen* 17 mg/dL (7-30); Carbon Dioxide* 27 mmol/L (20-32); Creatinine* 0.9 mg/dL (0.5-1.5); Est. Creatinine Clearance* 44.10; Estimated Glomerular Filt Rate 66 ml/min
[2025-01-17 09:34] LABS: Alkaline Phosphatase* 70 U/L (40-150); Bilirubin Total* 1.0 mg/dL (0.1-1.5); Calcium* 9.1 mg/dL (8.4-10.6); Glucose* 94 mg/dL (60-115); Total Protein* 6.5 g/dL (6.0-8.3)
[2025-02-14 10:13] VITALS: BP 155/80; PULSE 67; RESP 16; TEMP 36.1; O2SAT 97
[2025-02-14 10:16] LABS: Hematocrit* 39.3 % (33.0-51.0); Hemoglobin* 13.1 gm/dL (12.0-16.0); Immature Granulocytes Pct Auto 0.3 %; Mean Corpuscular HGB Conc 33 gm/dL (32-36); Mean Corpuscular Hemoglobin 37 pg (26-34); Mean Corpuscular Volume 110 fL (80-100); RDW Coefficient of Variation % 13.8 % (11.5-15.5); Red Blood Count* 3.59 m/uL (4.00-5.20); White Blood Count* 3.27 K/uL (4.50-11.00)
[2025-02-14 10:17] LABS: Immature Granulocytes Abs Auto 0.00 K/uL (0.00-0.30); Lymphocytes Absolute Auto 0.90 K/uL (0.90-2.90); Slide Review Reflex No
[2025-02-14 10:31] LABS: Albumin* 4.5 g/dL (3.3-5.0); Chloride* 101 mmol/L (96-114); Potassium* 4.0 mmol/L (3.6-5.1); Sodium* 135 mmol/L (135-149)
[2025-02-14 10:33] LABS: Blood Urea Nitrogen* 14 mg/dL (7-30); Creatinine* 0.8 mg/dL (0.5-1.5); Est. Creatinine Clearance* 44.10; Estimated Glomerular Filt Rate 76 ml/min
[2025-02-14 10:34] LABS: Alanine Aminotransferase* 16 U/L (4-35); Alkaline Phosphatase* 61 U/L (40-150); Anion Gap 10 mEq/L (7-15); Aspartate Amino Transferase* 28 U/L (12-35); Bilirubin Total* 1.0 mg/dL (0.1-1.5); Calcium* 8.7 mg/dL (8.4-10.6); Carbon Dioxide* 24 mmol/L (20-32); Glucose* 93 mg/dL (60-115); Total Protein* 6.8 g/dL (6.0-8.3)
[2025-02-14] MEDS: DENOSUMAB 120 MG inj SUBCUT (11:08)
== END 2025-03-12 23:59 | disposition home or self-care (01) ==
LOC: CCIC 10:30
PROVIDERS: Internal Medicine Hematology & Oncology; Physician Assistant; PCP Family Medicine; Referring Provider Family Medicine; Visit Provider Clinical Nurse Specialist
DX: C50.912 Malignant neoplasm of unspecified site of left female breast (principal); Z17.0 Estrogen receptor positive status [ER+]; C79.51 Secondary malignant neoplasm of bone; Z85.3 Personal history of malignant neoplasm of breast
CPT/HCPCS: 36415; 80048; 80053; 82310; 82565; 83615; 83735; 85025; 87507; 96360; 96372; 99214; 99215; G0463; J0897; J7030

== ENCOUNTER 2025-03-14 10:06 | Outpatient (CLI) | payer MEDICARE, SELFPAY ==
--- NOTE | 2025-03-14 10:15 | CRLHL7_ITS ---
For Patients: As a result of the Century Cures Act, medical imaging exams and procedure reports are released immediately into your electronic medical record. You may view this report before your referring provider. If you have questions, please contact your health care provider. INDICATION: Breast cancer. TECHNIQUE: Multiplanar MRI of the brain was performed with and without the administration of intravenous contrast. IV contrast: 15 mL Dotarem. COMPARISON: Head MRI 11/15/2024, head MRI 08/03/2024 FINDINGS: No evidence of acute infarction. No evidence of acute intracranial hemorrhage. A couple of foci of susceptibility in a peripheral distribution in the left parietal and occipital lobes are unchanged and may be sequela of remote small embolic events or hypertensive vasculopathy. No abnormal parenchymal enhancement or new leptomeningeal enhancement. Stable thin dural thickening and enhancement at the right frontal convexity. No edema of mass effect. There are scattered and patchy T2/FLAIR hyperintensities in the subcortical and periventricular white matter that are unchanged from prior study. While nonspecific, these can be seen as sequela of chronic small vessel ischemia. The ventricles and sulci are prominent and proportionate reflecting mild diffuse brain volume loss. Mild mucosal thickening/secretions in the sphenoid sinus. No evidence of acute orbital pathology. There are intra-ocular lens replacements bilaterally. No significant mastoid effusion. Stable diffuse osseous metastases throughout the calvarium, skull base, and visualized cervical spine. IMPRESSION: 1. No evidence of parenchymal metastases. 2. Stable thin dural thickening at the right frontal convexity. 3. Diffuse osseous metastases are unchanged. Dictated by Vineet Gardner MD @ 03/14/2025 6:08:38 PM (Electronically Signed)
== END 2025-03-14 10:07 | disposition home or self-care (01) ==
LOC: MRI 10:07
PROVIDERS: PCP Family Medicine; Visit Provider Internal Medicine Hematology & Oncology
DX: C50.919 Malignant neoplasm of unspecified site of unspecified female breast (principal); C79.52 Secondary malignant neoplasm of bone marrow; C79.51 Secondary malignant neoplasm of bone
CPT/HCPCS: 70553; A9575

== ENCOUNTER 2025-03-15 07:13 | Outpatient (CLI) | payer MEDICARE, SELFPAY ==
--- NOTE | 2025-03-15 07:30 | CRLHL7_ITS ---
For Patients: As a result of the 21st Century Cures Act, medical imaging exams and procedure reports are released immediately into your electronic medical record. You may view this report before your referring provider. If you have questions, please contact your health care provider. EXAM: FDG PET-CT Skull Base to Thighs CLINICAL INFORMATION: 79-year-old woman with history of breast cancer. Restaging. TECHNIQUE: Radiopharmaceutical: 18F-fluorodeoxyglucose (18F-FDG) Dose: 10.6 MilliCurie. Blood glucose: 69 mg/dL. Image acquisition: At approximately 60 minutes following IV tracer administration via a right antecubital vein, positron emission tomography was performed from the skull base through the mid thigh. Non-contrast low-dose helical CT imaging was performed over the same range without breath-hold for attenuation correction of PET images and anatomic correlation; it is neither sufficient, nor should it be substituted for diagnostic purposes. COMPARISON: FDG PET-CT 09/09/2024, 12/16/2024 FINDINGS: Mediastinal blood pool FDG uptake: SUVMax 2.3 (Image 95) Liver background parenchymal FDG uptake: SUVMax 2.9 (Image 138) PET Findings: Left mastectomy with reconstruction. No abnormal focal increased FDG uptake in the chest wall. Similar moderately FDG avid osseous metastasis in the left femoral neck with SUVmax 4.7, (image 258) previously SUVMax 5.6. Overall increased mild multifocal FDG uptake in bilateral pelvic bones, for example: * Borderline increased mildly FDG avid lesion in the left posterior iliac bone SUVmax 2.4, (image 207) previously faintly FDG avid with FDG uptake at level of blood pool, SUVmax 2.1. * New borderline mild focal FDG uptake in the right posterior iliac bone without definite CT correlate SUVmax 2.4, (image 208). * New mild FDG uptake in the right posterior iliac wing with a definite CT correlate SUVmax 2.8, (image 196). No substantial change of multiple other scattered osseous lesions that are either non FDG avid or faintly FDG avid, compatible with treated/quiescent osseous metastatic disease. No additional sites of new or progressive FDG avid angie or distant metastatic disease. Tracer uptake elsewhere is physiologic. Non-PET findings: Bilateral lens replacements. Subcentimeter pulmonary nodules too small to characterize. Upper lung predominant centrilobular and paraseptal emphysema. Coronary artery calcifications. Atherosclerotic calcifications of the thoracic and abdominal aorta. Cardiomegaly. Small hiatal hernia. Similar 2.0 x 1.7 cm right adrenal adenoma previously 2.0 x 1.4 cm. Scattered right renal photopenic hypodense lesions, one consistent with a cyst, others too small to characterize but statistically likely cysts. An unchanged 0.8 cm fat density cortical lesion in the right renal posterior interpolar region likely represents an angiomyolipoma. Left renal cortical and sinus cysts. Colonic diverticulosis. Multilevel degenerative changes in the spine. Similar compression deformities in the thoracic spine. IMPRESSION: 1. Left mastectomy with reconstruction. No evidence of FDG avid locally recurrent disease. 2. Similar moderately FDG avid osseous metastasis in the left femoral neck. 3. Overall increased mild multifocal FDG uptake in the bilateral pelvic bones. This is nonspecific with differential considerations including new or increased FDG avid osseous metastases, versus metabolic uptake from reticuloendothelial cell activation. 4. Overall no substantial change of multiple other scattered osseous lesions that are either non FDG avid or faintly FDG avid, compatible with treated/quiescent osseous metastatic disease. 5. No additional sites of new or progressive FDG avid angie or distant metastatic disease. Dictated by Gonzalo Covington MD @ 03/15/2025 10:48:04 PM (Electronically Signed)
== END 2025-03-15 07:14 | disposition home or self-care (01) ==
PROVIDERS: PCP Family Medicine; Visit Provider Internal Medicine Hematology & Oncology
DX: C50.919 Malignant neoplasm of unspecified site of unspecified female breast (principal); Z85.3 Personal history of malignant neoplasm of breast; C79.51 Secondary malignant neoplasm of bone
CPT/HCPCS: 78815; A9552